=== PATIENT | female | born 1935 | race Caucasian/White ===

== ENCOUNTER 2016-06-10 08:18 | Day surgery (SDC) | payer MEDICARE ==
[~2016-06-10 08:18] MED LIST: PHENYLEPHRINE 2.5% OPHTH 2 ML DROPS ONE
[2016-06-10] MEDS ORDERED: PHENYLEPHRINE 2.5% OPHTH 2 ML DROPS OPTH ONE (08:50)
[2016-06-10] MEDS ORDERED: PROPARACAINE 0.5% OPHTH DROPS 15 ML OPTH ONE (08:50)
[2016-06-10] MEDS ORDERED: CYCLOPENTOLATE 1% OPHTH DROPS 2 ML OPTH ONE (08:50)
[2016-06-10] MEDS ORDERED: KETOROLAC 0.45% OPHTH DROPS OPTH ONE (08:50)
[2016-06-10] MEDS ORDERED: LACTATED RINGERS 500 ML IV ONE (09:18)
[2016-06-10] MEDS ORDERED: MIDAZOLAM 2 MG/2 ML VIAL IVP ONE (10:10)
[2016-06-10] MEDS ORDERED: fentaNYL 100 MCG/2 ML VIAL IVP ONE (10:10)
[2016-06-10] MEDS ORDERED: BRIMONIDINE 0.2% OPHTH DROPS 5 ML OPTH ONE (10:20)
[2016-06-10] MEDS ORDERED: CHONDR SULF/HYALURONATE SYRINGE IO ONE (10:20)
[2016-06-10] MEDS ORDERED: EPINEPHrine 1 MG/ML AMP IVP ONE (10:20)
[2016-06-10] MEDS ORDERED: levoFLOXacin 0.5% OPHTH DROPS 5 ML OPTH ONE (10:20)
[2016-06-10] MEDS ORDERED: BSS/LIDOCAINE/EPINEPHRINE 1 ML SYRINGE IO ONE ×2 (10:20)
[2016-06-10] MEDS ORDERED: TRIAMCIN/MOXIFLOX/VANCO 1 ML VIAL IO ONE ×2 (10:21)
== END 2016-06-10 08:19 | disposition home or self-care (01) ==
PROC: 08RK3JZ Replacement of Left Lens with Synthetic Substitute, Percutaneous Approach (ICD-10-PCS; principal; 2016-06-10 09:30)
DX: H25.812 Combined forms of age-related cataract, left eye (principal); E11.22 Type 2 diabetes mellitus with diabetic chronic kidney disease; I12.9 Hypertensive chronic kidney disease with stage 1 through stage 4 chronic kidney disease, or unspecified chronic kidney disease; N18.9 Chronic kidney disease, unspecified; E66.9 Obesity, unspecified; Z95.1 Presence of aortocoronary bypass graft; Z68.43 Body mass index [BMI] 50.0-59.9, adult; Z87.891 Personal history of nicotine dependence
CPT/HCPCS: 66984; A9270; V2632

== ENCOUNTER 2016-08-25 00:50 | Emergency (ER) | payer MEDICARE ==
[2016-08-25] MEDS ORDERED: ALBUTEROL NEB 2.5 MG/3 ML INH STA (01:07)
[2016-08-25] MEDS ORDERED: ONDANSETRON 4 MG/2 ML VIAL IVP STA (01:08)
[2016-08-25] MEDS ORDERED: ALBUTEROL NEB 2.5 MG/3 ML INH ONE (01:09)
--- NOTE | 2016-08-25 01:13 | ED Physician Documentation ---
PD HPI DYSPNEA - Stated complaint Stated Complaint: SHORTNESS OF BREATH - Chief complaint Chief Complaint: Resp - History obtained from History obtained from: Patient, Family - History of Present Illness Timing - onset: How many weeks ago (2) Timing - onset during: Rest Timing - duration: Weeks (2) Timing - details: Gradual onset Pain level max: 0 Pain level now: 0 Inciting event(s): Other (states feels like her normal allergies) Improved by: Inhaler/neb (ran out of her albuterol at home) Worsened by: Exertion, Coughing Associated symptoms: Cough (mild, dry), Wheezing, Chest pain / discomfort ( tightness). No: Fever, Hemoptysis, Palpitations, Diaphoresis, Bilateral edema Similar symptoms before: Diagnosis (asthma, allergies) Recently seen: Not recently seen Review of Systems Ten Systems: 10 systems reviewed and negative Constitutional: denies: Fever, Chills Ears: denies: Drainage/discharge Nose: reports: Rhinorrhea / runny nose, Congestion GI: denies: Vomiting, Diarrhea Skin: denies: Rash Musculoskeletal: denies: Neck pain, Back pain Neurologic: denies: Focal weakness, Numbness, Headache PD PAST MEDICAL HISTORY - Past Medical History Past Medical History: Yes Cardiovascular: Hypertension, Coronary artery disease, [place], Atrial fibrillation Respiratory: Asthma Neuro: None Endocrine/Autoimmune: None GI: None : Kidney stones HEENT: None Psych: Anxiety Musculoskeletal: Osteoarthritis Derm: Other - Past Surgical History Past Surgical History: Yes 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 Cardiovascular: CABG HEENT: Tonsil/Adenoidectomy - Present Medications Home Medications: Ambulatory Orders Medication Instructions Recorded Confirmed Lisinopril 2.5 mg PO DAILY 04/01/13 06/10/16 Metoprolol Succinate [Toprol Xl] 25 mg PO DAILY 02/08/14 06/10/16 Apixaban [Eliquis] 2.5 mg PO DAILY 06/09/16 06/10/16 - Allergies Allergies/Adverse Reactions: Allergies Allergy/AdvReac Type Severity Reaction Status Date / Time amoxicillin Allergy Unknown Verified 10/14/15 10:35 iodine Allergy Hives Verified 07/23/15 02:07 shellfish derived Allergy Hives Verified 07/23/15 02:07 lactose AdvReac Cramps Verified 07/23/15 02:07 - Social History Does the pt smoke?: No Smoking Status: Light tobacco smoker Does the pt drink ETOH?: No Does the pt have substance abuse?: No - Immunizations Immunizations are current?: Yes - POLST Patient has POLST: No PD ED PE NORMAL - Vitals Vital signs reviewed: Yes - General General: Alert and oriented X 3, No acute distress, Well developed/nourished - HEENT HEENT: Ears normal, Moist mucous membranes, Pharynx benign - Neck Neck: Supple, no meningeal sign - Cardiac Cardiac: RRR - Respiratory Respiratory: No respiratory distress, Other (mild wheeze B) - Abdomen Abdomen: Soft, Non tender, Non distended - Derm Derm: Warm and dry, No rash - Extremities Extremities: No edema, No calf tenderness / cord - Neuro Neuro: Alert and oriented X 3 - Psych Psych: Normal mood, Normal affect Results - Vitals Vitals: Vital Signs - 24 hr 08/25/16 08/25/16 08/25/16 00:56 01:25 01:50 Temperature 37.4 C Heart Rate 104 H 95 106 H Respiratory 22 20 16 Rate Blood Pressure 152/104 H 151/75 H O2 Saturation 97 97 08/25/16 02:15 Temperature Heart Rate 102 H Respiratory 16 Rate Blood Pressure 138/47 H O2 Saturation 95 Oxygen O2 Source [] Room air O2 Source Room air - EKG (time done) 0111 Rate: Rate (enter#) (113) Rhythm: Atrial fibrillation [place]: Normal QRS: Normal Ischemia: Non specific changes Computer interpretation: Agree with computer - Labs Labs: Laboratory Tests 08/25/16 08/25/16 08/25/16 01:05 01:05 01:05 WBC 13.9 H RBC 4.05 L Hgb 13.1 Hct 38.5 MCV 95.2 MCH 32.3 H MCHC 34.0 RDW 14.2 Plt Count 193 MPV 9.9 Neut # 10.0 H Lymph # 2.4 [place] # 1.1 H Eos # 0.4 Baso # 0.1 Absolute Nucleated RBC 0.00 Nucleated RBCs 0.0 Sodium 136 Potassium 3.9 Chloride 100 L Carbon Dioxide 22 Anion Gap 14.0 H BUN 20 Creatinine 1.0 Estimated GFR (MDRD) 53 L Glucose 182 H Calcium 9.1 Total Bilirubin 1.7 H AST 36 ALT 35 Alkaline Phosphatase 34 L Troponin I < 0.04 B-Natriuretic Peptide Total Protein 7.6 Albumin 4.2 Globulin 3.4 Albumin/Globulin Ratio 1.2 Lipase 20 L 08/25/16 01:05 WBC RBC Hgb Hct MCV MCH MCHC RDW Plt Count MPV Neut # Lymph # [place] # Eos # Baso # Absolute Nucleated RBC Nucleated RBCs Sodium Potassium Chloride Carbon Dioxide Anion Gap BUN Creatinine Estimated GFR (MDRD) Glucose Calcium Total Bilirubin AST ALT Alkaline Phosphatase Troponin I B-Natriuretic Peptide 284 H Total Protein Albumin Globulin Albumin/Globulin Ratio Lipase - Rads (name of study) cxr Radiology: Prelim report reviewed, EMP read contemporaneously, See rad report ( Cardiomegaly. Borderline vascular congestion. No consolidation. ) PD MEDICAL DECISION MAKING - ED course Complexity details: reviewed results, re-evaluated patient, considered differential, d/w patient ED course: Patient is a 81-year-old female who presents to the emergency department with what appears to be an asthma exacerbation. Feels better after nebulizer treatment with albuterol. She was given an albuterol inhaler for home. No evidence of cardiac etiology. Mildly elevated BNP, but no significant pulmonary edema on chest x-ray. She feels much better and back to her normal baseline. No evidence of acute coronary syndrome. Patient and family counseled regarding signs and symptoms for which I believe and urgent re- evaluation would be necessary. Patient with good understanding of and agreement to plan and is comfortable going home at this time This document was made in part using voice recognition software. While efforts are made to proofread this document, sound alike and grammatical errors may occur. Departure - Departure Disposition: 01 Home, Self Care Clinical Impression: Reactive airway disease Qualifiers: Asthma severity: unspecified severity Asthma complication type: with acute exacerbation Qualified Code(s): J45.901 - Unspecified asthma with (acute) exacerbation Condition: Good Instructions: ED Reactive Airway Disease Follow-Up: Perlita Rodgers MD [Primary Care Provider] - Within 1 week Comments: Use the inhaler every 4 hours as needed. Return if you worsen.
[2016-08-25 01:15] LABS: BASOPHILS # (AUTO) 0.1 10^3/uL (0.0-0.1); BASOPHILS % (AUTO) 0.5 %; EOSINOPHILS # (AUTO) 0.4 10^3/uL (0.0-0.7); EOSINOPHILS % (AUTO) 2.6 %; HCT - HEMATOCRIT 38.5 % (37.0-47.0); HGB - HEMOGLOBIN 13.1 g/dL (12.0-16.0); LYMPHOCYTES # (AUTO) 2.4 10^3/uL (1.5-3.5); LYMPHOCYTES % (AUTO) 16.9 %; MEAN CORPUSCULAR HEMOGLOBIN 32.3 pg (27.0-31.0); MEAN CORPUSCULAR VOLUME 95.2 fL (81.0-99.0); MEAN PLATELET VOLUME 9.9 fL (7.9-10.8); MONOCYTES # (AUTO) 1.1 10^3/uL (0.0-1.0); MONOCYTES % (AUTO) 7.7 %; NEUTROPHILS % (AUTO) 72.3 %; RED BLOOD COUNT 4.05 10^6/uL (4.20-5.40); RED CELL DISTRIBUTION WIDTH 14.2 % (12.0-15.0); UNCORRECTED WHITE BLOOD COUNT 13.9 x10^3/uL; WHITE BLOOD COUNT 13.9 x10^3/uL (4.8-10.8)
[2016-08-25] MEDS ORDERED: ONDANSETRON 4 MG/2 ML VIAL ONE (01:16)
[2016-08-25 01:21] LABS: ALBUMIN/GLOBULIN RATIO 1.2 (1.0-2.2); BILIRUBIN,TOTAL 1.7 mg/dL (0.2-1.0); CALCIUM 9.1 mg/dL (8.5-10.3); POTASSIUM 3.9 mmol/L (3.5-5.0); TOTAL PROTEIN 7.6 g/dL (6.7-8.2)
--- NOTE | 2016-08-25 01:48 | XRAY Preliminary Report ---
Exam: XR Chest 1 View IMPRESSION: 1. Cardiomegaly. Borderline vascular congestion. 2. No consolidation. [facility] SITE ID: [id number]
--- NOTE | 2016-08-25 01:51 | XRAY Report ---
EXAM: CHEST RADIOGRAPHY EXAM DATE: 08/25/2016 01:35 AM. CLINICAL HISTORY: Dyspnea. Shortness of breath. COMPARISON: 10/14/2015. 07/23/2015. TECHNIQUE: 1 view. FINDINGS: Lungs/Pleura: Vasculature is prominent. No focal consolidation. No pneumothorax. Mediastinum: Heart is enlarged. Aorta is mildly tortuous. Aortic atherosclerosis. Other: Status post median sternotomy. IMPRESSION: 1. Cardiomegaly. Borderline vascular congestion. 2. No consolidation. [facility] Referring Provider Line: [phone] SITE ID: [id number]
[2016-08-25] MEDS ORDERED: ALBUTEROL 18 GM INHALER INH ONE (02:57)
[2016-08-25] MEDS ORDERED: ALBUTEROL 8 GM INHALER INH STA (02:57)
[2016-08-25 03:33] VITALS: BP 127/52
== END 2016-08-25 03:33 | disposition home or self-care (01) ==
LOC: ED 00:50
DX: J45.901 Unspecified asthma with (acute) exacerbation (principal); I10 Essential (primary) hypertension; I48.91 Unspecified atrial fibrillation; Z79.01 Long term (current) use of anticoagulants
CPT/HCPCS: 36415; 71010; 80053; 83690; 83880; 84484; 85025; 93005; 93010; 94640; 96374; 99283; 99285; J7613

== ENCOUNTER 2017-02-09 14:59 | Emergency (ER) | payer MEDICARE ==
--- NOTE | 2017-02-09 18:18 | ED Physician Documentation ---
History of Present Illness - Stated complaint Stated Complaint: HAND INJURY - Chief complaint Chief Complaint: Laceration - Additonal information Additional information: pt with skin tear from dog claws several days ago daughter helped provide good local wound care but now developing some pain and erythema need tdap all to amox was renal dysfxn that might have bneen 2/ amx or other meds taken at the same time Review of Systems Skin: reports: Laceration (s) PD PAST MEDICAL HISTORY - Past Medical History Cardiovascular: Hypertension, Coronary artery disease, [place], Atrial fibrillation Respiratory: Asthma Neuro: None Endocrine/Autoimmune: None GI: None : Kidney stones HEENT: None Psych: Anxiety Musculoskeletal: Osteoarthritis Derm: Other - Past Surgical History Past Surgical History: Yes General: Other /REST ROOM MATRON: Hysterectomy Cardiovascular: CABG HEENT: Tonsil/Adenoidectomy - Present Medications Home Medications: Ambulatory Orders Medication Instructions Recorded Confirmed Lisinopril 2.5 mg PO DAILY 04/01/13 02/09/17 Metoprolol Succinate [Toprol Xl] 25 mg PO DAILY 02/08/14 02/09/17 Apixaban [Eliquis] 2.5 mg PO DAILY 06/09/16 02/09/17 cephALEXin [Keflex] 250 mg PO Q6H #28 capsule 02/09/17 - Allergies Allergies/Adverse Reactions: Allergies Allergy/AdvReac Type Severity Reaction Status Date / Time amoxicillin Allergy Unknown Verified 02/09/17 15:15 iodine Allergy Hives Verified 02/09/17 15:15 shellfish derived Allergy Hives Verified 02/09/17 15:15 lactose AdvReac Cramps Verified 02/09/17 15:15 - Social History Does the pt smoke?: No Smoking Status: Never smoker Does the pt drink ETOH?: No Does the pt have substance abuse?: No - Immunizations Immunizations are current?: Yes - POLST Patient has POLST: No PD ED PE NORMAL - Vitals Vital signs reviewed: Yes - Cardiac Cardiac: RRR - Respiratory Respiratory: No respiratory distress, Clear bilaterally - Derm Derm: Other (skin tear ulnar aspect voler L hand, no bleeding, skin approximated , some tenderness and erythema adjacent, no dc, streaking o flutuance, MSV intact, no tendon sheath TTP or pain with ROM) Results - Vitals Vitals: Vital Signs - 24 hr 02/09/17 15:03 Temperature 36 C L Heart Rate 100 Respiratory 20 Rate Blood Pressure 142/84 H O2 Saturation 99 Oxygen O2 Source [With Activity] Room air O2 Source Room air Departure - Departure Disposition: 01 Home, Self Care Clinical Impression: Infected skin tear Condition: Good Prescriptions: cephALEXin [Keflex] 250 mg PO Q6H #28 capsule Comments: Keep wound clean. Apply antibiotic ointment and a clean bandage daily Return if worse as discussed
[2017-02-09 18:25] VITALS: BP 147/76
[2017-02-09] MEDS ORDERED: BACITRACIN OINT TOP ONE (18:33)
[2017-02-09] MEDS: cephALEXin 250 MG CAPSULE PO STA (18:34)
[2017-02-09] MEDS: TETANUS/DIPHTHERIA/PERTUSSIS 0.5 ML SYRINGE IM ONE (18:34)
[2017-02-09] MEDS ORDERED: cephALEXin 250 MG CAPSULE PO ONE (18:36)
[2017-02-09] MEDS ORDERED: TETANUS/DIPHTHERIA/PERTUSSIS 0.5 ML SYRINGE IM ONE (18:37)
== END 2017-02-09 18:38 | disposition home or self-care (01) ==
LOC: ED 14:59
DX: S61.412A Laceration without foreign body of left hand, initial encounter (principal); L08.9 Local infection of the skin and subcutaneous tissue, unspecified; W54.8XXA Other contact with dog, initial encounter; I10 Essential (primary) hypertension; I25.10 Atherosclerotic heart disease of native coronary artery without angina pectoris; I25.2 Old myocardial infarction; I48.91 Unspecified atrial fibrillation; Z23 Encounter for immunization; Z79.01 Long term (current) use of anticoagulants; Z95.1 Presence of aortocoronary bypass graft
CPT/HCPCS: 90471; 99283

== ENCOUNTER 2019-10-05 21:03 | Outpatient (CLI) | payer MEDICARE | END 2019-10-05 21:04 | disposition critical access hospital (66) | LOC: EMS 21:03 | PROVIDERS: ATTEND Surgery | DX: M25.562 Pain in left knee (principal) | CPT/HCPCS: A0425; A0429 ==

== ENCOUNTER 2019-10-05 21:05 | Emergency (ER) | payer MEDICAID, MEDICARE ==
--- NOTE | 2019-10-05 21:10 | ED Physician Documentation ---
History of Present Illness - Stated complaint Stated Complaint: LEFT KNEE INJURY - History obtained from History obtained from: Patient (84 Y/O F who sat down to go to the restroom when she tried to stand up she had pain in her left patella. Denies any falls or trauma or any other complaints.Patient ambulates with walker at baseline.) Review of Systems Constitutional: reports: Reviewed and negative Eyes: reports: Reviewed and negative Ears: reports: Reviewed and negative Nose: reports: Reviewed and negative Throat: reports: Reviewed and negative Cardiac: reports: Reviewed and negative Respiratory: reports: Reviewed and negative GI: reports: Reviewed and negative : reports: Reviewed and negative Skin: reports: Reviewed and negative Musculoskeletal: reports: Joint pain, Other (Left knee pain) Neurologic: reports: Reviewed and negative Psychiatric: reports: Reviewed and negative Endocrine: reports: Reviewed and negative Immunocompromised: reports: Reviewed and negative PD PAST MEDICAL HISTORY - Past Medical History Cardiovascular: Hypertension, Coronary artery disease, [place], Atrial fibrillation Respiratory: Asthma Endocrine/Autoimmune: None GI: None : Kidney stones HEENT: None Psych: Anxiety Musculoskeletal: Osteoarthritis Derm: Other - Past Surgical History Past Surgical History: Yes 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 Cardiovascular: CABG HEENT: Tonsil/Adenoidectomy - Present Medications Home Medications: Ambulatory Orders Medication Instructions Recorded Confirmed lisinopriL [Lisinopril] 2.5 mg PO DAILY 04/01/13 02/09/17 Metoprolol Succinate [Toprol Xl] 25 mg PO DAILY 02/08/14 02/09/17 Apixaban [Eliquis] 2.5 mg PO DAILY 06/09/16 02/09/17 cephALEXin [Keflex] 250 mg PO Q6H #28 capsule 02/09/17 - Allergies Allergies/Adverse Reactions: Allergies Allergy/AdvReac Type Severity Reaction Status Date / Time amoxicillin Allergy Unknown Verified 10/05/19 21:12 iodine Allergy Hives Verified 10/05/19 21:12 shellfish derived Allergy Hives Verified 10/05/19 21:12 lactose AdvReac Cramps Verified 10/05/19 21:12 - Social History Does the pt smoke?: No Smoking Status: Never smoker Does the pt drink ETOH?: No Does the pt have substance abuse?: No - Immunizations Immunizations are current?: Yes - POLST Patient has POLST: No PD ED PE NORMAL - Vitals Vital signs reviewed: Yes - General General: Alert and oriented X 3, No acute distress, Well developed/nourished - HEENT HEENT: PERRL - Neck Neck: Supple, no meningeal sign - Cardiac Cardiac: RRR, No murmur - Respiratory Respiratory: Clear bilaterally - Abdomen Abdomen: Normal bowel sounds, Soft, Non tender, Non distended - Derm Derm: Warm and dry - Extremities Extremities: Other (left Patella Is dislocated laterally.Compartments soft, neurovascularly intact palpable DP and PT pulses.) - Neuro Neuro: Alert and oriented X 3 - Psych Psych: Normal mood, Normal affect Results - Vitals Vitals: Vital Signs - 24 hr 10/05/19 10/05/19 10/05/19 21:09 22:11 22:22 Temperature 37.4 C Heart Rate 101 H 777 H Respiratory 18 17 17 Rate Blood Pressure 135/58 H 145/59 H O2 Saturation 98 97 Oxygen O2 Source [With Activity] Room air O2 Source Room air Procedures - General procedure General procedure: Left knee. Left knee was extended, patella was reduced from lateral to medial to midline position x-ray shows no fracture or dislocation post exam show her compartments to be soft with palpable DP and PT pulses patient symptoms improved. Patient placed in knee immobilizer. PD MEDICAL DECISION MAKING - ED course Complexity details: reviewed results, re-evaluated patient, considered differential (Left patella dislocation), d/w patient Departure - Departure Disposition: 01 Home, Self Care Clinical Impression: Left knee pain Qualifiers: Chronicity: acute Qualified Code(s): M25.562 - Pain in left knee Patellar dislocation Qualifiers: Encounter type: initial encounter Laterality: left Qualified Code(s): S83.005A - Unspecified dislocation of left patella, initial encounter Condition: Stable Instructions: ED Dislocation Patella Follow-Up: Perlita Rodgers MD [Primary Care Provider] - 10/08/19 Comments: ice several times daily. use walker as needed. keep knee in brace. follow up with your pcp on Tuesday.
--- NOTE | 2019-10-05 22:00 | XRAY Report ---
PROCEDURE: Knee 3 View LT INDICATIONS: left knee pain TECHNIQUE: 3 views of the left knee(s) were acquired. COMPARISON: None. FINDINGS: Bones: No fractures or dislocations. No suspicious bony lesions. There is moderate femorotibial co mpartment narrowing. Soft tissues: No joint effusion. No suspicious soft tissue calcifications. IMPRESSION: Degenerative change. No acute radiographic findings. If pain persists, consider repeat i maging in 5-7 days to exclude occult fracture. Reviewed by: Katie Bernal MD on 10/05/2019 9:58 PM PDT Approved by: Katie Bernal MD on 10/05/2019 9:58 PM PDT Station ID: [id number]
[2019-10-05 22:12] VITALS: BP 145/59
== END 2019-10-05 22:35 | disposition home or self-care (01) ==
LOC: EDUNIT# → ED 21:05
DX: S83.005A Unspecified dislocation of left patella, initial encounter (principal); X58.XXXA Exposure to other specified factors, initial encounter; Y93.E8 Activity, other personal hygiene; Y92.002 Bathroom of unspecified non-institutional (private) residence as the place of occurrence of the external cause
CPT/HCPCS: 27560

== ENCOUNTER 2019-12-24 18:55 | Inpatient (IN) | payer MEDICARE, MEDICAID ==
[2019-12-24 20:07] LABS: BASOPHILS # (AUTO) 0.1 10^3/uL (0.0-0.1); BASOPHILS % (AUTO) 0.4 %; EOSINOPHILS # (AUTO) 0.2 10^3/uL (0.0-0.7); EOSINOPHILS % (AUTO) 1.4 %; HGB - HEMOGLOBIN 12.3 g/dL (12.0-16.0); LYMPHOCYTES # (AUTO) 0.9 10^3/uL (1.5-3.5); MEAN CORPUSCULAR HEMOGLOBIN 33.3 pg (27.0-31.0); MEAN CORPUSCULAR HGB CONC 32.2 g/dL (32.0-36.0); MEAN CORPUSCULAR VOLUME 103.5 fL (81.0-99.0); MEAN PLATELET VOLUME 11.3 fL (7.9-10.8); MONOCYTES # (AUTO) 0.6 10^3/uL (0.0-1.0); MONOCYTES % (AUTO) 4.1 %; NEUTROPHILS # (AUTO) 12.5 10^3/uL (1.5-6.6); NEUTROPHILS % (AUTO) 87.3 %; PLT - PLATELET COUNT 231 10^3/uL (130-450); RED BLOOD COUNT 3.69 10^6/uL (4.20-5.40); RED CELL DISTRIBUTION WIDTH 14.8 % (12.0-15.0); WHITE BLOOD COUNT 14.3 x10^3/uL (4.8-10.8)
[2019-12-24 20:19] LABS: ALBUMIN 4.3 g/dL (3.2-5.5); ALBUMIN/GLOBULIN RATIO 1.3 (1.0-2.2); BILIRUBIN,TOTAL 2.3 mg/dL (0.2-1.0); CALCIUM 9.4 mg/dL (8.5-10.3); CREATININE 1.4 mg/dL (0.4-1.0); TOTAL PROTEIN 7.5 g/dL (6.7-8.2)
--- NOTE | 2019-12-24 20:31 | XRAY Report ---
PROCEDURE: Chest 1 View X-Ray INDICATIONS: Chest Pain TECHNIQUE: One view of the chest was acquired. COMPARISON: 08/25/2016 chest radiograph FINDINGS: Surgical changes and devices: Median sternotomy changes for CABG. Lungs and pleura: No pleural effusions or pneumothorax. Lungs are clear. Mediastinum: Mediastinal contours appear normal. Heart size is normal. Bones and chest wall: No suspicious bony lesions. Overlying soft tissues appear unremarkable. IMPRESSION: No acute cardiac or marrow process demonstrated radiographically. Reviewed by: Jacinto Morrison MD on 12/24/2019 8:30 PM PDT Approved by: Jacinto Morrison MD on 12/24/2019 8:30 PM PDT Station ID: [id number]
[2019-12-24] MEDS ORDERED: ONDANSETRON 4 MG/2 ML VIAL IVP STA ×2 (20:32→22:53)
[2019-12-24] MEDS ORDERED: MORPHINE 2 MG/ML CARPUJECT IVP STA ×2 (20:32→21:10)
--- NOTE | 2019-12-24 20:32 | ED Physician Documentation ---
PD HPI ABD PAIN - Stated complaint Stated Complaint: STOMACH PAIN - Chief complaint Chief Complaint: Abd Pain - History obtained from History obtained from: Patient - Additional information Additional information: 84-year-old woman with history of atrial fibrillation on Eliquis who has a lap band in place. She developed severe abdominal pain around 2 this afternoon, its on the right side. It is associated with belching and nausea. It is cramping and burning in character. Last bowel movement yesterday and normal. 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 : Kidney stones HEENT: None Psych: Anxiety Musculoskeletal: Osteoarthritis Derm: Other - Past Surgical History Past Surgical History: Yes General: 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 /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: Hysterectomy Cardiovascular: CABG HEENT: Tonsil/Adenoidectomy - Present Medications Home Medications: Ambulatory Orders Medication Instructions Recorded Confirmed lisinopriL [Lisinopril] 2.5 mg PO DAILY 04/01/13 02/09/17 Metoprolol Succinate [Toprol Xl] 25 mg PO DAILY 02/08/14 02/09/17 Apixaban [Eliquis] 2.5 mg PO DAILY 06/09/16 02/09/17 cephALEXin [Keflex] 250 mg PO Q6H #28 capsule 02/09/17 - Allergies Allergies/Adverse Reactions: Allergies Allergy/AdvReac Type Severity Reaction Status Date / Time amoxicillin Allergy Unknown Verified 12/24/19 19:21 iodine Allergy Hives Verified 12/24/19 19:21 shellfish derived Allergy Hives Verified 12/24/19 19:21 lactose AdvReac Cramps Verified 12/24/19 19:21 - Social History Does the pt smoke?: No Smoking Status: Never smoker Does the pt drink ETOH?: No Does the pt have substance abuse?: No - Immunizations Immunizations are current?: Yes - POLST Patient has POLST: No PD ED PE NORMAL - Vitals Vital signs reviewed: Yes - General General: Alert and oriented X 3, Other (She appears uncomfortable and is belching) - HEENT HEENT: PERRL, EOMI - Neck Neck: Supple, no meningeal sign, No bony TTP - Cardiac Cardiac: Other (Irregularly irregular) - Respiratory Respiratory: No respiratory distress, Clear bilaterally - Abdomen Abdomen: Other (Tender in the right upper quadrant with hyperactive bowel tones) - Back Back: No CVA TTP, No spinal TTP - Derm Derm: Normal color, Warm and dry, No rash - Extremities Extremities: No edema, No calf tenderness / cord - Neuro Neuro: Alert and oriented X 3, Normal speech Results - Vitals Vitals: Vital Signs - 24 hr 12/24/19 12/24/19 12/24/19 19:14 19:30 20:20 Temperature 36.9 C 36.9 C 36.9 C Heart Rate 72 72 78 Respiratory 18 18 16 Rate Blood Pressure 112/58 L 112/58 L 140/56 H O2 Saturation 97 97 100 12/24/19 22:00 Temperature 36.8 C Heart Rate 100 Respiratory 18 Rate Blood Pressure 156/72 H O2 Saturation 100 Oxygen O2 Source [] Room air O2 Source Room air - EKG (time done) 1946 Rate: Rate (enter#) (87) Rhythm: Atrial fibrillation [place]: Normal QRS: Normal Ischemia: Non specific changes Computer interpretation: Agree with computer - Labs Labs: Laboratory Tests 12/24/19 12/24/19 12/24/19 19:40 19:40 19:40 WBC 14.3 H RBC 3.69 L Hgb 12.3 Hct 38.2 MCV 103.5 H MCH 33.3 H MCHC 32.2 RDW 14.8 Plt Count 231 MPV 11.3 H Neut # (Auto) 12.5 H Lymph # (Auto) 0.9 L [place] # (Auto) 0.6 Eos # (Auto) 0.2 Baso # (Auto) 0.1 Absolute Nucleated RBC 0.00 Nucleated RBC % 0.0 Sodium 138 Potassium 3.8 Chloride 101 Carbon Dioxide 25 Anion Gap 12.0 BUN 25 H Creatinine 1.4 H Estimated GFR (MDRD) 36 L Glucose 174 H Calcium 9.4 Total Bilirubin 2.3 H AST 139 H ALT 64 H Alkaline Phosphatase 43 Troponin I High Sens 8.5 Total Protein 7.5 Albumin 4.3 Globulin 3.2 Albumin/Globulin Ratio 1.3 Lipase 34 - Rads (name of study) 1v chest Radiology: EMP read contemporaneously (NAD) PD MEDICAL DECISION MAKING - ED course ED course: 84-year-old woman with acute right upper quadrant pain and tenderness. Liver enzymes are elevated and her white count is 14. She does have a history of atrial fibrillation and is therapeutically anticoagulated on Eliquis. She required a couple of doses of IV morphine for pain control and was comfortable after that. Suspicion for biliary etiology is high And signout to overnight emergency physician pending ultrasonography. Departure - Departure Clinical Impression: Abdominal pain Qualifiers: Abdominal location: right upper quadrant Qualified Code(s): R10.11 - Right upper quadrant pain
[2019-12-25] MEDS ORDERED: metroNIDAZOLE 500 MG/100 ML 500 MG/100 ML BAG IV ONE (00:14)
[2019-12-25] MEDS ORDERED: levoFLOXacin 750 MG/150 ML 750 MG/150 ML BAG IV STA (00:15)
[2019-12-25 00:18] LABS: BILIRUBIN,URINE NEGATIVE (NEGATIVE); GLUCOSE, URINE (UA) NEGATIVE (NEGATIVE); KETONES,URINE (UA) NEGATIVE (NEGATIVE); LEUKOCYTE ESTERASE, URINE NEGATIVE (NEGATIVE); NITRITE,URINE NEGATIVE (NEGATIVE); OCCULT BLOOD,URINE NEGATIVE (NEGATIVE); PH,URINE 5.5 PH (5.0-7.5); PROTEIN,URINE NEGATIVE (NEGATIVE); UROBILINOGEN,URINE 0.2 (NORMAL) E.U./dL (NORMAL)
[2019-12-25 00:19] LABS: CLARITY,URINE CLEAR (CLEAR)
--- NOTE | 2019-12-25 00:27 | ED Physician Documentation ---
ED Addendum - Addendum Addendum: patient signed out to me at shift change by dr. goodwin. Ultrasound preliminary radiology interpretation shows an impression of findings consistent with cholecystitis in the appropriate clinical setting, and large fatty liver, nonspecific pancreatic ductal dilation. Pancreas not well seen overall due to bowel gas obscuration. The gallbladder does show echogenic shadowing foci consistent with gallstones gallbladder wall thickening at 5 mm with ac- cholecystic fluid. I did speak with a surgeon transitional care manager Dr. Garza who recommends admission to medicine and MRCP in the morning and he will evaluate the patient as a consultant education. spoke with the hospitalist dr. barahona who was graciously agreed to admit this patient. patient on eliquis for a fib. 12/25/19 00:25 12/25/19 03:43 Departure - Departure Disposition: 66 [facility] DC/Xfer Clinical Impression: Cholecystitis Abdominal pain Qualifiers: Abdominal location: right upper quadrant Qualified Code(s): R10.11 - Right upper quadrant pain Condition: Stable Discharge Date/Time: 12/25/19 01:40
[2019-12-25] MEDS ORDERED: MORPHINE 2 MG/ML CARPUJECT IVP PRN (00:53)
--- NOTE | 2019-12-25 01:04 | HISTORY & PHYSICAL EXAMINATION ---
Chief Complaint - Chief Complaint Chief Complaint: Right upper quadrant pain History of Present Illness - Admitted From Admitted From:: [facility] ED - History Obtained From Records Reviewed: Yes History obtained from: Patient - History of Present Illness HPI Comment/Other: Patient is an 84-year-old female who presented to the ED with complaint of right upper quadrant abdominal pain. This started yesterday around noon after she had some tuna salad. The pain has been progressively worse since then so she came to the emergency room. Currently she rates the pain 7 out of 10. She describes occasional cramping as well. She has been nauseous but no vomiting she has been experiencing dry heaves. She denies fever or chills. In the ED work-up included a Ultrasound of the abdomen which showed gallbladder wall thickening at 5 mm with pericholecystic fluid.. There was also nonspecific pancreatic ductal dilatation. The patient also had a WBC of 14.3. As a result she was presented for admission for further evaluation and treatment. The patient has a history of atrial fibrillation for which she is on Eliquis. She last took Eliquis on December 24, 2019 in the morning. She also has history of coronary artery disease status post a 4 vessel bypass in 2009. At bedside she denied chest pain, dyspnea, fever or chills. History - Past Medical History Cardiovascular: reports: Hypertension, Coronary artery disease, [place], Atrial fibrillation Respiratory: reports: Asthma Neuro: reports: None Endocrine/Autoimmune: reports: None GI: reports: None LIFE SKILLS COORDINATOR: reports: None : reports: Kidney stones HEENT: reports: None Psych: reports: Anxiety Musculoskeletal: reports: Osteoarthritis Derm: reports: Other MRSA Hx?: No - Past Surgical History General: reports: Other /LIFE SKILLS COORDINATOR: reports: Hysterectomy Cardiovascular: reports: CABG HEENT: reports: Tonsil/Adenoidectomy - Family & Social History Family History Comment/Other: Her parents of old age. Her children are healthy. Living arrangement: At home Social History Notes: She lives across the street in the [facility]. 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 Her children have been living with her for couple of months. She has 3 children who all live in [place]. She has 4 grandchildren. She does not smoke tobacco products or use any recreational substances. - POLST Patient has POLST: No Meds/Allgy - Home Medications Home Medications: Ambulatory Orders Medication Instructions Recorded Confirmed lisinopriL [Lisinopril] 2.5 mg PO DAILY 04/01/13 02/09/17 Metoprolol Succinate [Toprol Xl] 25 mg PO DAILY 02/08/14 02/09/17 Apixaban [Eliquis] 2.5 mg PO DAILY 06/09/16 02/09/17 cephALEXin [Keflex] 250 mg PO Q6H #28 capsule 02/09/17 - Allergies Allergies/Adverse Reactions: Allergies Allergy/AdvReac Type Severity Reaction Status Date / Time amoxicillin Allergy Unknown Verified 12/24/19 19:21 iodine Allergy Hives Verified 12/24/19 19:21 shellfish derived Allergy Hives Verified 12/24/19 19:21 lactose AdvReac Cramps Verified 12/24/19 19:21 Review of Systems - Constitutional Constitutional: denies: Fatigue, Fever, Chills - Eyes Eyes: denies: Pain - Ears, Nose & Throat Ears, Nose & Throat: denies: Ear pain - Cardiovascular Cariovascular: reports: Irregular heart rate, Edema (chronic right lower ext edema). denies: Chest pain, Lightheadedness, Syncope, Exertional dyspnea - Respiratory Respiratory: denies: Cough, Wheezing, SOB at rest, SOB with exertion - Gastrointestinal Gastrointestinal: reports: Abdominal pain (right upper quadrant), Nausea. denies: Abdominal distention, Constipation, Diarrhea, Vomiting - Genitourinary Genitourinary: denies: Dysuria, Frequency, Urgency, Hematuria - Musculoskeletal Musculoskeletal: denies: Muscle pain, Back pain, Muscle aches - Integumentary Integumentary: denies: Rash, Pruritis, Lesions - Neurological Neurological: denies: General weakness, Focal weakness, Headache, Dizziness - Psychiatric Psychiatric: denies: Depression, Anxiety - Endocrine Endocrine: denies: Polyuria, Polydypsia - Hematologic/Lymphatic Hematologic/Lymphatic: denies: Anemia, Bruising, Petechiae Prior Level of Functionality: Patient is independent of activities of daily living. She gets around using a walker. Exam - Vital Signs Vital Signs: Vital Signs x48h Temp Pulse Resp BP Pulse Ox 12/24/19 23:50 36.7 C 80 18 122/49 L 98 12/24/19 22:00 36.8 C 100 18 156/72 H 100 12/24/19 20:20 36.9 C 78 16 140/56 H 100 12/24/19 19:30 36.9 C 72 18 112/58 L 97 12/24/19 19:14 36.9 C 72 18 112/58 L 97 - Physical Exam General Appearance: positive: Alert, Moderate distress, Severe distress Eyes Bilateral: positive: PERRL, EOMI ENT: positive: Dry mucous membranes Neck: positive: No JVD, Trachea midline Respiratory: positive: Chest non-tender, No respiratory distress, Breath sounds nml. negative: Wheezes, Rales, Rhonchi Cardiovascular: positive: Irregularly irregular Abdomen: positive: No distention, Tenderness. negative: Guarding, Rebound Back: positive: Nml inspection Skin: positive: Color nml, No rash, Warm, Dry Extremities: positive: Non-tender, Full ROM, Nml appearance, Pedal edema (right lower extremity edema) Neurologic/Psychiatric: positive: Oriented x3, Mood/affect nml Conclusion/Plan - Problem List (1) Cholecystitis Conclusion/Plan: Patient WBC was 14.3. Patient was given Levaquin and Flagyl in the ED. We will continue Cipro and Flagyl.N.p.o. IV hydration with normal saline at 100 mils an hour. Pain management with morphine and oxycodone as needed. Zofran for nausea. MRCP ordered. Dr. Garza with general surgery consulted and will see the patient in the morning. Patient last took Eliquis on the morning of December 24, 2019. We will order Lovenox 1 mg/kg twice daily. Patient would need to be off Eliquis for a total of 3 days before surgery (2) Atrial fibrillation Conclusion/Plan: On Metroprolol succinate 25 mg p.o. daily. We will hold Eliquis in anticipation of surgery. We will put patient on Lovenox 1mg/kg twice daily Qualifiers: Atrial fibrillation type: paroxysmal Qualified Code(s): I48.0 - Paroxysmal atrial fibrillation (3) Hypertension Conclusion/Plan: On metoprolol and lisinopril. (4) History of coronary artery disease Conclusion/Plan: Patient had a quadruple vessel CABG in 2009. On metoprolol. We will hold patient's Eliquis in anticipation of surgery. Lovenox 1mg/kg twice daily ordered - Lab Results Fish Bones: 12/24/19 19:40 12/24/19 19:40 Core Measures - Anticipated LOS I expect patient to be DC'd or transferred within 96 hours.: Yes - DVT/VTE - Prophylaxis VTE/DVT Device ordered at admit?: Yes VTE/DVT Prophylaxis med ordered at admit?: Yes
[2019-12-25] MEDS: SODIUM CHLORIDE 0.9% 1,000 ML IV SCH ×3 (01:49→22:29)
[2019-12-25] MEDS: SODIUM CHLORIDE FLUSH 0.9% 10 ML SYRINGE IVP PRN ×4 (01:51→06:48)
[2019-12-25] MEDS: SODIUM CHLORIDE FLUSH 0.9% 10 ML SYRINGE IVP SCH ×3 (02:21→17:48)
[2019-12-25] MEDS: ONDANSETRON 4 MG/2 ML VIAL IVP PRN ×3 (02:47→15:01)
[2019-12-25] MEDS: MORPHINE 2 MG/ML CARPUJECT IVP PRN ×2 (03:36→08:04)
[2019-12-25] MEDS: ZINC OXIDE 20% OINT 30 GM TUBE TOP PRN (05:11)
[2019-12-25 05:55] LABS: BASOPHILS # (AUTO) 0.1 10^3/uL (0.0-0.1); BASOPHILS % (AUTO) 0.4 %; EOSINOPHILS # (AUTO) 0.1 10^3/uL (0.0-0.7); EOSINOPHILS % (AUTO) 0.7 %; HGB - HEMOGLOBIN 10.7 g/dL (12.0-16.0); LYMPHOCYTES # (AUTO) 0.5 10^3/uL (1.5-3.5); LYMPHOCYTES % (AUTO) 3.1 %; MEAN CORPUSCULAR HEMOGLOBIN 33.1 pg (27.0-31.0); MEAN CORPUSCULAR HGB CONC 30.8 g/dL (32.0-36.0); MEAN CORPUSCULAR VOLUME 107.4 fL (81.0-99.0); MEAN PLATELET VOLUME 11.7 fL (7.9-10.8); MONOCYTES # (AUTO) 0.7 10^3/uL (0.0-1.0); MONOCYTES % (AUTO) 4.4 %; NEUTROPHILS # (AUTO) 15.4 10^3/uL (1.5-6.6); NEUTROPHILS % (AUTO) 90.7 %; PLT - PLATELET COUNT 201 10^3/uL (130-450); RED BLOOD COUNT 3.23 10^6/uL (4.20-5.40)
[2019-12-25 06:09] LABS: ALBUMIN 3.5 g/dL (3.2-5.5); ALBUMIN/GLOBULIN RATIO 1.2 (1.0-2.2); CREATININE 1.1 mg/dL (0.4-1.0); TOTAL PROTEIN 6.4 g/dL (6.7-8.2)
[2019-12-25] MEDS: PANTOPRAZOLE 40 MG VIAL IVP SCH (06:48)
--- NOTE | 2019-12-25 07:57 | Ultrasound Report ---
PROCEDURE: Abdomen Limited INDICATIONS: RUQ pain, elev liver enz TECHNIQUE: Real-time scanning was performed of the abdominal and retroperitoneal organs, with image documentatio n. COMPARISON: None. FINDINGS: Liver: Liver is normal in size and homogeneous in echotexture. Liver is diffusely echogenic. Gallbladder: Stones noted in the gallbladder lumen. Gallbladder wall is mildly thickened to 5.[address] mm[address] amount pericholecystic fluid. No sonographic Donald's sign reported, however patient is medicate d prior to acquisition. Biliary ducts: Minimal to mild intrahepatic biliary dilatation. Common bile duct is dilated to 10.3 m m. Normal is 6-7 mm or less in diameter, or 10 mm or less post-cholecystectomy. Pancreas: Not well visualized due to bowel gas and cannot be evaluated. Spleen: Not imaged. Kidneys: Kidneys are normal in size and echotexture. Right kidney measures 10.5 cm long. No right- sided hydronephrosis or nephrolithiasis. No solid masses. Aorta: Not imaged. Iliacs: Not imaged. IVC: Intrahepatic inferior vena cava is patent. Miscellaneous: No free abdominal fluid. IMPRESSION: 1. Cholelithiasis with gallbladder wall thickening and pericholecystic fluid suspicious for acute cho lecystitis. 2. Dilated biliary tree with common bile duct measuring 10.3 mm suspicious for biliary obstruction. R ecommend correlation with clinical and laboratory data. 3. Echogenic liver. Finding typically represents fatty infiltration, however finding is nonspecific a nd other etiologies including hepatic cirrhosis can reduce a similar appearance. Recommend correlatio n with clinical and laboratory data. Reviewed by: Estefania Bhatt MD, PhD on 12/25/2019 7:55 AM PDT Approved by: Estefania Bhatt MD, PhD on 12/25/2019 7:55 AM PDT Station ID: [id number]
[2019-12-25] MEDS: metroNIDAZOLE 500 MG/100 ML 500 MG/100 ML BAG IV SCH ×2 (08:20→17:43)
[2019-12-25] MEDS ORDERED: ENOXAPARIN 80 MG/0.8 ML SYRINGE SUBQ SCH (09:00)
[2019-12-25] MEDS: ACETAMINOPHEN 325 MG TABLET PO PRN ×2 (16:59→22:40)
--- NOTE | 2019-12-25 17:38 | PHARMACY PROGRESS NOTE ---
- Best Possible Medication History Admit Date and Time: 12/25/19 0053 Processed by: Pharmacy Medication History completed: Yes Patient Interview: Completed Secondary Source(s): Physician records (PATIENT INTERVIEWED BY GAME TECHNICIAN. PATIENT ABLE TO CONFIRM HOME MEDICATIONS ), Pharmacy records, Insurance records As the person ultimately responsible for medication therapy, providers are able to order a medication from an existing home medication list in [facility] via the "Reconcile Routine" prior to Confirmation of that medication by business support associate. Such practice is discouraged except when the physician, in their clinical judgment, deems that a medical need exists for a medication without regard to previous use.
[2019-12-25] MEDS: ENOXAPARIN 100 MG/ML SYRINGE SUBQ SCH (21:05)
[2019-12-25] MEDS ORDERED: SODIUM CHLORIDE 0.9% 500 ML IV ONE (21:38)
[2019-12-26] MEDS: ACETAMINOPHEN 325 MG TABLET PO PRN ×2 (01:11→07:03)
[2019-12-26] MEDS: metroNIDAZOLE 500 MG/100 ML 500 MG/100 ML BAG IV SCH ×3 (01:11→17:31)
[2019-12-26] MEDS: SODIUM CHLORIDE FLUSH 0.9% 10 ML SYRINGE IVP SCH ×4 (01:13→23:48)
[2019-12-26] MEDS: CIPROFLOXACIN 400 MG/200 ML 400 MG/200 ML BAG IV SCH ×2 (01:15→14:35)
[2019-12-26] MEDS: oxyCODONE 5 MG TABLET PO PRN ×3 (02:13→23:48)
--- NOTE | 2019-12-26 04:58 | MRI Report ---
PROCEDURE: MRCP W/O INDICATIONS: R/O obstruction. CONTRAST: None TECHNIQUE: Coronal ultra fast SE through the abdomen, axial 2-D spoiled GE in- and [id number], and breath-hold T2 FSE with fat saturation through the biliary system and pancreas. Oblique coronal and axial thin- slice ultra fast SE, radial thick-slab ultra fast SE centered on the extrahepatic bile ducts. COMPARISON: None. Correlation is made to ultrasound 12/24/2019 FINDINGS: Image quality: Excellent. Pancreas and biliary system: Mild central intrahepatic biliary dilatation. Common hepatic duct is pro minent at 10 mm. The visible cystic duct is patent without stone. Common bile duct is dilated up to 1 3 mm. Definite obstructing stone distally is not evident. The pancreatic duct is minimally dilated at 4 mm. Pancreas is normal in morphology, without adjacent soft tissue edema. Pancreatic duct is norm al in caliber, without developmental anomalies. Gallbladder is distended, demonstrates a thickened wall, and a number of small dependently layering g allstones. Other solid organs: Liver and spleen are normal in size. No adrenal nodules. Both kidneys are norm al in size, without hydronephrosis. Occasional cortical and parapelvic cysts are present in each kid diamond. Nodes and vessels: No retroperitoneal or mesenteric adenopathy by size criteria. Aorta and inferior vena cava are normal in size. Bowel and peritoneum: Laparoscopic gastric band at the GE junction.. Unenhanced bowel loops are norm al in caliber. There is a small amount of fluid around the liver. Lung bases: No basal pleural effusions. Heart size is mildly enlarged. There are median sternotomy changes present.. Bones and soft tissues: No ventral hernias. Bone marrow is of normal overall signal. IMPRESSION: 1. Findings of cholelithiasis and acute cholecystitis. 2. Mild intra and extrahepatic biliary dilatation without visible obstructing stone. This may be seco ndary to recently passed stone. 3. Mild pancreatic ductal dilatation. This is diffuse and may be evidence of recent edema at the ampu lla. 4. Laparoscopic band at the GE junction in satisfactory position. 5. Prior median sternotomy. Reviewed by: Millie Hodgson MD on 12/25/2019 4:54 PM PDT Approved by: Millie Hodgson MD on 12/25/2019 4:54 PM PDT Station ID: [id number]
[2019-12-26 05:33] LABS: BASOPHILS % (AUTO) 0.5 %; EOSINOPHILS # (AUTO) 0.2 10^3/uL (0.0-0.7); HGB - HEMOGLOBIN 9.7 g/dL (12.0-16.0); LYMPHOCYTES % (AUTO) 11.7 %; MEAN CORPUSCULAR HEMOGLOBIN 32.8 pg (27.0-31.0); MEAN CORPUSCULAR HGB CONC 31.5 g/dL (32.0-36.0); MEAN CORPUSCULAR VOLUME 104.1 fL (81.0-99.0); MEAN PLATELET VOLUME 11.2 fL (7.9-10.8); MONOCYTES # (AUTO) 0.6 10^3/uL (0.0-1.0); MONOCYTES % (AUTO) 7.6 %; NEUTROPHILS # (AUTO) 6.5 10^3/uL (1.5-6.6); NEUTROPHILS % (AUTO) 77.7 %; PLT - PLATELET COUNT 145 10^3/uL (130-450); RED BLOOD COUNT 2.96 10^6/uL (4.20-5.40); RED CELL DISTRIBUTION WIDTH 15.3 % (12.0-15.0); WHITE BLOOD COUNT 8.4 x10^3/uL (4.8-10.8)
[2019-12-26 05:46] LABS: ALBUMIN 3.3 g/dL (3.2-5.5); ALBUMIN/GLOBULIN RATIO 1.3 (1.0-2.2); BILIRUBIN,TOTAL 4.9 mg/dL (0.2-1.0); CALCIUM 8.4 mg/dL (8.5-10.3); CREATININE 0.9 mg/dL (0.4-1.0); TOTAL PROTEIN 5.9 g/dL (6.7-8.2)
[2019-12-26] MEDS: PANTOPRAZOLE 40 MG VIAL IVP SCH (06:58)
[2019-12-26] MEDS: SODIUM CHLORIDE 0.9% 1,000 ML IV SCH (06:59)
[2019-12-26] MEDS: SODIUM CHLORIDE FLUSH 0.9% 10 ML SYRINGE IVP PRN (06:59)
--- NOTE | 2019-12-26 07:35 | CONSULTATION NOTE ---
Referring Provider Name of Referring Provider:: Dr. Rodarte Consult Date: 12/26/19 Chief Complaint - Chief Complaint Chief Complaint: Right upper quadrant pain/cholecystitis History of Present Illness - Admitted From Admitted From:: HOME - History Obtained From Records Reviewed: EMR History obtained from: PATIENT Exam Limitations: NONE - History of Present Illness HPI Comment/Other: 84-year-old female with history of coronary artery disease on systemic anti coagulation who presents with abdominal pain. Significant past surgical history for lap band with significant weight loss. Reports worsening discomfort. Associated nausea and occasional emesis however latter is complicated by her historic lap band which is partially inflated. No prior history of upper and lower endoscopy. No family history of note. Called by hospital service for consultation. History - Past Medical History Cardiovascular: reports: Hypertension, Coronary artery disease, [place], Atrial fibrillation Respiratory: reports: Asthma Neuro: reports: None Endocrine/Autoimmune: reports: None GI: reports: None SENIOR MECHANICAL TECHNICIAN: reports: None : reports: Kidney stones HEENT: reports: None Psych: reports: Anxiety Musculoskeletal: reports: Osteoarthritis Derm: reports: Other MRSA Hx?: No - Past Surgical History General: reports: Other /SENIOR MECHANICAL TECHNICIAN: reports: Hysterectomy Cardiovascular: reports: CABG HEENT: reports: Tonsil/Adenoidectomy - Family & Social History Family History Comment/Other: Her parents of old age. Her children are healthy. Living arrangement: At home Social History Notes: She lives across the street in the [facility]. 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 Her children have been living with her for couple of months. She has 3 children who all live in [place]. She has 4 grandchildren. She does not smoke tobacco products or use any recreational substances. - POLST Patient has POLST: No Meds/Allgy - Home Medications Home Medications: Ambulatory Orders Medication Instructions Recorded Confirmed Albuterol Sulfate [Albuterol 2 puffs INH Q4H PRN 12/25/19 12/25/19 Sulfate Hfa] Apixaban [Eliquis] 5 mg PO BID 12/25/19 12/25/19 Metoprolol Succinate [Toprol Xl] 25 mg PO DAILY 12/25/19 12/25/19 - Allergies Allergies/Adverse Reactions: Allergies Allergy/AdvReac Type Severity Reaction Status Date / Time amoxicillin Allergy Unknown Verified 12/24/19 19:21 iodine Allergy Hives Verified 12/24/19 19:21 shellfish derived Allergy Hives Verified 12/24/19 19:21 lactose AdvReac Cramps Verified 12/24/19 19:21 Review of Systems - Constitutional Constitutional: reports: Fatigue - Gastrointestinal Gastrointestinal: reports: Abdominal pain, Nausea, Vomiting Exam - Vital Signs Reviewed Vital Signs: Yes Vital Signs: Vital Signs x48h Temp Pulse Resp BP Pulse Ox 12/26/19 03:06 36.6 C 85 18 142/68 H 96 12/26/19 00:19 36.6 C 73 18 107/55 L 97 - Physical Exam General Appearance: positive: No acute distress, Alert Eyes Bilateral: positive: Normal inspection, PERRL, EOMI ENT: positive: ENT inspection nml Neck: positive: Nml inspection Respiratory: positive: Chest non-tender, No respiratory distress, Breath sounds nml. negative: Wheezes, Rales, Rhonchi Cardiovascular: positive: No murmur, No gallop Abdomen: positive: No distention, Tenderness. negative: Guarding, Rebound Skin: positive: Color nml Extremities: positive: Non-tender, Full ROM, Nml appearance Neurologic/Psychiatric: positive: Oriented x3, CN's nml (2-12), Motor nml, Sensation nml, Mood/affect nml Conclusion and Plan - Lab Results Laboratory Results 12/26/19 05:17: Sodium 139, Potassium 3.6, Chloride 112 H, Carbon Dioxide 20 L, Anion Gap 7.0, BUN 22 H, Creatinine 0.9, Estimated GFR (MDRD) 60 L, Glucose 88, Calcium 8.4 L, Total Bilirubin 4.9 H, AST 101 H, ALT 102 H, Alkaline Phosphatase 34 L, Total Protein 5.9 L, Albumin 3.3, Globulin 2.6, Albumin/Globulin Ratio 1.3 12/26/19 05:17: WBC 8.4, RBC 2.96 L, Hgb 9.7 L, Hct 30.8 L, MCV 104.1 H, MCH 32.8 H, MCHC 31.5 L, RDW 15.3 H, Plt Count 145, MPV 11.2 H, Neut # (Auto) 6.5, Lymph # (Auto) 1.0 L, Barnes # (Auto) 0.6, Eos # (Auto) 0.2, Baso # (Auto) 0.0, Absolute Nucleated RBC 0.00, Nucleated RBC % 0.0 12/25/19 05:35: Sodium 139, Potassium 4.0, Chloride 106, Carbon Dioxide 22, Anion Gap 11.0, BUN 23 H, Creatinine 1.1 H, Estimated GFR (MDRD) 48 L, Glucose 170 H, Calcium 9.0, Total Bilirubin 4.0 H, AST 211 H, ALT 143 H, Alkaline Phosphatase 36 L, Total Protein 6.4 L, Albumin 3.5, Globulin 2.9, Albumin/Globulin Ratio 1.2 12/25/19 05:35: WBC 17.0 H, RBC 3.23 L, Hgb 10.7 L, Hct 34.7 L, MCV 107.4 H, MCH 33.1 H, MCHC 30.8 L, RDW 15.0, Plt Count 201, MPV 11.7 H, Neut # (Auto) 15.4 H, Lymph # (Auto) 0.5 L, Barnes # (Auto) 0.7, Eos # (Auto) 0.1, Baso # (Auto) 0.1, Absolute Nucleated RBC 0.00, Nucleated RBC % 0.0 12/25/19 00:05: Urine Color YELLOW, Urine Clarity CLEAR, Urine pH 5.5, Ur Specific Campbell >=1.030 H, Urine Protein NEGATIVE, Urine Glucose (UA) NEGATIVE, Urine Ketones NEGATIVE, Urine Occult Blood NEGATIVE, Urine Nitrite NEGATIVE, Urine Bilirubin NEGATIVE, Urine Urobilinogen 0.2 (NORMAL), Ur Leukocyte Esterase NEGATIVE, Ur Microscopic Review NOT INDICATED, Urine Culture Comments NOT INDICATED 12/24/19 19:40: Troponin I High Sens 8.5 12/24/19 19:40: Sodium 138, Potassium 3.8, Chloride 101, Carbon Dioxide 25, Anion Gap 12.0, BUN 25 H, Creatinine 1.4 H, Estimated GFR (MDRD) 36 L, Glucose 174 H, Calcium 9.4, Total Bilirubin 2.3 H, AST 139 H, ALT 64 H, Alkaline Phosphatase 43, Total Protein 7.5, Albumin 4.3, Globulin 3.2, Albumin/Globulin Ratio 1.3, Lipase 34 12/24/19 19:40: WBC 14.3 H, RBC 3.69 L, Hgb 12.3, Hct 38.2, MCV 103.5 H, MCH 33.3 H, MCHC 32.2, RDW 14.8, Plt Count 231, MPV 11.3 H, Neut # (Auto) 12.5 H, Lymph # (Auto) 0.9 L, Barnes # (Auto) 0.6, Eos # (Auto) 0.2, Baso # (Auto) 0.1, Absolute Nucleated RBC 0.00, Nucleated RBC % 0.0 - Diagnostic Imaging Results Diagnostic Imaging Results: positive: Final report reviewed Diagnostic Imaging Results Comments: Abdominal ultrasound impression: 1. Cholelithiasis with gallbladder wall thickening and pericholecystic fluid suspicious for acute cholecystitis 2. Dilated biliary tree with common bile duct measuring 10.3 mm suspicious for biliary obstruction. Recommend correlation with clinical and laboratory data. 3. Echogenic liver. Finding typically represents fatty infiltration, however finding is nonspecific and other etiologies including hepatic cirrhosis can reduce in similar appearance. Recommend correlation with clinical and laboratory data. MRCP impression: 1. Findings of cholelithiasis and acute cholecystitis 2. Mild intra-and extrahepatic biliary dilatation without visible obstructing stone. This may be secondary to recently passed stone. 3. Mild pancreatic ductal dilatation. This is diffuse and may be evidence of r ecent edema at the ampulla. 4. Laparoscopic band at the GE junction in satisfactory position. 5. Prior median sternotomy - Diagnosis Diagnosis: 1. Coronary artery disease. 2. Systemic anticoagulation. 3. Cholecystitis. 4. Cholelithiasis. 5. No evidence of choledocholithiasis. 6. Fatty liver suspected HULL - Plan Plan: 84-year-old female with cholecystitis as well as cholelithiasis with multiple comorbid states with no evidence of choledocholithiasis by MRCP. History of coronary artery disease on systemic anticoagulation. Recommend laparoscopic cholecystectomy however patient will need to be medically optimized and re- stratified. Plan is as follows: (1) GI - IVF, bowel rest, GI ppx. Opiate sparring analgesia. (2) SURGERY - plan laparoscopic cholecystectomy with possible intraoperative cholangiogram. (3) Renal/Lytes - continue IVF. Renal indices within normal limits. (4) Respiratory - O2 as necessary. Continue nebulizers as necessary. Continue IS. Chest XR. Diuresis. (5) Heme - Will continue with DVT ppx. H/H stable. Continue to hold Eliquis. (6) Cardiovascular - HD acceptable. Request preoperative medical optimization and risk assessment from a hospital standpoint given her extensive history of coronary artery disease. Continue to hold Eliquis. (7) Neuro - Opiate sparring analgesia. Antispasmodics with Robaxin. Neuropathic agents for perioperative analgesia. (8) Infectious disease - in the setting of cholecystitis we will continue antibiotics.
--- NOTE | 2019-12-26 07:44 | PROVIDER PROGRESS NOTE ---
Subjective - Prog Note Date Prog Note Date: 12/26/19 - Subjective Subjective: She reports her abdominal pain has improved. Reports no chest pain or dyspnea. She states she does not have any chest pain with exertion. She is not very active due to a left patella dislocation that occurred 3 months ago. She reports no history of stroke, diabetes, renal disease. She did have a CABG 10 years ago for coronary artery disease. She has been doing quite well since then and denies any angina with any exertion. Current Medications - Current Medications Current Medications: Active Medications Acetaminophen (Tylenol) 650 mg PO Q4HR PRN PRN Reason: Pain 1 to 4 Last Admin: 12/26/19 07:03 Dose: 650 mg Documented by: Enoxaparin Sodium (Lovenox) 100 mg SUBQ BID [facility] Last Admin: 12/26/19 08:32 Dose: 100 mg Documented by: Metronidazole (Flagyl 500 Mg/100 Ml) 500 mg in 100 mls @ 100 mls/hr IV Q8H [facility] Last Infusion: 12/26/19 09:35 Dose: Infused Documented by: Ciprofloxacin (Cipro 400 Mg/200 Ml) 400 mg in 200 mls @ 200 mls/hr IV Q12H [facility] Last Infusion: 12/26/19 02:15 Dose: Infused Documented by: Sodium Chloride (Normal Saline 0.9%) 1,000 mls @ 125 mls/hr IV .Q8H [facility] Last Infusion: 12/26/19 09:35 Dose: 125 mls/hr Documented by: Morphine Sulfate (Morphine (Carpuject)) 4 mg IVP Q3HR PRN PRN Reason: Pain 8 to 10 Last Admin: 12/25/19 08:04 Dose: 4 mg Documented by: Multi-Ingredient Ointment (Zinc Oxide) 1 applic TOP PRN PRN PRN Reason: Skin Care Last Admin: 12/25/19 05:11 Dose: 1 applic Documented by: Ondansetron HCl (Zofran Inj) 4 mg IVP Q4HR PRN PRN Reason: Nausea / Vomiting Last Admin: 12/25/19 15:01 Dose: 4 mg Documented by: Oxycodone HCl (Roxicodone) 5 mg PO Q4HR PRN PRN Reason: Pain 5 to 7 Last Admin: 12/26/19 02:13 Dose: 5 mg Documented by: Pantoprazole Sodium (Protonix) 40 mg IVP QDAC [facility] Last Admin: 12/26/19 06:58 Dose: 40 mg Documented by: Sodium Chloride (Normal Saline Flush 0.9%) 10 ml IVP PRN PRN PRN Reason: NEEDED PER PROVIDER ORDERS Last Admin: 12/26/19 06:59 Dose: 10 ml Documented by: Sodium Chloride (Normal Saline Flush 0.9%) 10 ml IVP 0100,0900,1700 [facility] Last Admin: 12/26/19 08:32 Dose: Not Given Documented by: Albuterol Sulfate [Albuterol Sulfate Hfa] 2 puffs INH Q4H PRN 12/25/19 Apixaban [Eliquis] 5 mg PO BID 12/25/19 Metoprolol Succinate [Toprol Xl] 25 mg PO DAILY 12/25/19 Objective - Vital Signs/Intake & Output Reviewed Vital Signs: Yes Vital Signs: Vital Signs x48h Temp Pulse Resp BP Pulse Ox 12/26/19 03:06 36.6 C 85 18 142/68 H 96 12/26/19 00:19 36.6 C 73 18 107/55 L 97 Intake & Output: Intake & Output 12/23/19 12/24/19 12/25/19 12/26/19 23:59 23:59 23:59 23:59 Intake Total 2813 1300 Output Total 100 Balance 2713 1300 - Objective General Appearance: positive: No acute distress, Alert Eyes Bilateral: positive: Normal inspection, Conjunctivae nml ENT: positive: ENT inspection nml Neck: positive: Nml inspection Respiratory: positive: No respiratory distress. negative: Wheezes, Rales, Rhonchi Cardiovascular: positive: Irregularly irregular. negative: Tachycardia, Bradycardia, Systolic murmur Abdomen: positive: Nml bowel sounds, No distention, Tenderness (She still has mild tenderness in the right upper quadrant.). negative: Non-tender, Guarding, Rebound Skin: positive: Warm, Dry Extremities: positive: Pedal edema (Trace pitting edema in the left lower extremity.) Neurologic/Psychiatric: positive: Oriented x3, Motor nml - Lab Results Fish Bones: 12/26/19 05:17 12/26/19 05:17 Other Labs: Lab Results x24hrs 12/26/19 12/26/19 Range/Units 05:17 05:17 WBC 8.4 (4.8-10.8) x10^3/uL RBC 2.96 L (4.20-5.40) 10^6/uL Hgb 9.7 L (12.0-16.0) g/dL Hct 30.8 L (37.0-47.0) % MCV 104.1 H (81.0-99.0) fL MCH 32.8 H (27.0-31.0) pg MCHC 31.5 L (32.0-36.0) g/dL RDW 15.3 H (12.0-15.0) % Plt Count 145 (130-450) 10^3/uL MPV 11.2 H (7.9-10.8) fL Neut # (Auto) 6.5 (1.5-6.6) 10^3/uL Lymph # (Auto) 1.0 L (1.5-3.5) 10^3/uL [place] # (Auto) 0.6 (0.0-1.0) 10^3/uL Eos # (Auto) 0.2 (0.0-0.7) 10^3/uL Baso # (Auto) 0.0 (0.0-0.1) 10^3/uL Absolute Nucleated RBC 0.00 x10^3/uL Nucleated RBC % 0.0 /100WBC Sodium 139 (135-145) mmol/L Potassium 3.6 (3.5-5.0) mmol/L Chloride 112 H (101-111) mmol/L Carbon Dioxide 20 L (21-32) mmol/L Anion Gap 7.0 (6-13) BUN 22 H (6-20) mg/dL Creatinine 0.9 (0.4-1.0) mg/dL Estimated GFR (MDRD) 60 L (>89) Glucose 88 (70-100) mg/dL Calcium 8.4 L (8.5-10.3) mg/dL Total Bilirubin 4.9 H (0.2-1.0) mg/dL AST 101 H (10-42) IU/L ALT 102 H (10-60) IU/L Alkaline Phosphatase 34 L (42-121) IU/L Total Protein 5.9 L (6.7-8.2) g/dL Albumin 3.3 (3.2-5.5) g/dL Globulin 2.6 (2.1-4.2) g/dL Albumin/Globulin Ratio 1.3 (1.0-2.2) ABX Reporting Has patient been on IV antibiotics over the past 48 hours?: Yes Assessment/Plan - Problem List (1) Cholecystitis Impression: MRCP confirms chronic cholecystitis and cholelithiasis. There is no obvious ductal obstruction. The ducts were mildly dilated which could have represented a passed stone. We will continue her on ciprofloxacin and Flagyl IV. We will keep her n.p.o. Discussed with general surgery and plan will be for surgical intervention tomorrow. (2) Preop examination Impression: She does have a history of coronary artery disease with CABG about 10 years ago. She is unable to function greater than 4 METS due to musculoskeletal issues. She denies any angina does not appear to be in heart failure. She has no renal disease, prior history of strokes, diabetes. Her prior echocardiogram available to me shows a preserved ejection fraction with no significant valvular disease. There are no obvious murmurs on exam. She does have atrial fibrillation but she is currently rate controlled. At this time, she is medically optimized for surgical intervention. No further cardiac work-up is required. Will recommend continuing her beta-obed. Her [place] perioperative risk for myocardial infarction or cardiac arrest is 0.7%. (3) Atrial fibrillation Impression: She is rate controlled. We will continue her home metoprolol. We will continue Lovenox with last dose being this evening and will hold morning dose first OR tomorrow. Qualifiers: Atrial fibrillation type: paroxysmal Qualified Code(s): I48.0 - Paroxysmal atrial fibrillation (4) History of coronary artery disease Impression: She is status post CABG in 2009. Stable. We will continue her beta-obed. (5) Acute kidney injury Impression: This has resolved. This was likely prerenal injury given the sepsis. Renal function is back to baseline. We will continue to monitor her renal function and urine output.
[2019-12-26] MEDS: ENOXAPARIN 100 MG/ML SYRINGE SUBQ SCH ×3 (08:32→20:20)
[2019-12-26] MEDS: DEXTROSE 5%-0.45% NACL 1,000 ML IV SCH (18:49)
[2019-12-26] MEDS: ZINC OXIDE 20% OINT 30 GM TUBE TOP PRN (23:59)
[2019-12-27] MEDS: metroNIDAZOLE 500 MG/100 ML 500 MG/100 ML BAG IV SCH ×3 (00:14→17:38)
[2019-12-27] MEDS: CIPROFLOXACIN 400 MG/200 ML 400 MG/200 ML BAG IV SCH ×2 (03:08→16:07)
[2019-12-27] MEDS: oxyCODONE 5 MG TABLET PO PRN ×2 (04:25→16:20)
[2019-12-27 05:32] LABS: BASOPHILS % (AUTO) 0.5 %; EOSINOPHILS # (AUTO) 0.1 10^3/uL (0.0-0.7); EOSINOPHILS % (AUTO) 1.7 %; LYMPHOCYTES # (AUTO) 0.9 10^3/uL (1.5-3.5); LYMPHOCYTES % (AUTO) 10.7 %; MEAN CORPUSCULAR HEMOGLOBIN 33.6 pg (27.0-31.0); MEAN CORPUSCULAR HGB CONC 32.4 g/dL (32.0-36.0); MEAN CORPUSCULAR VOLUME 103.7 fL (81.0-99.0); MEAN PLATELET VOLUME 11.2 fL (7.9-10.8); MONOCYTES # (AUTO) 0.7 10^3/uL (0.0-1.0); MONOCYTES % (AUTO) 8.8 %; NEUTROPHILS # (AUTO) 6.5 10^3/uL (1.5-6.6); NEUTROPHILS % (AUTO) 77.6 %; PLT - PLATELET COUNT 152 10^3/uL (130-450); RED BLOOD COUNT 2.98 10^6/uL (4.20-5.40); WHITE BLOOD COUNT 8.3 x10^3/uL (4.8-10.8)
[2019-12-27 05:45] LABS: ALBUMIN 3.3 g/dL (3.2-5.5); ALBUMIN/GLOBULIN RATIO 1.2 (1.0-2.2); BILIRUBIN,TOTAL 2.4 mg/dL (0.2-1.0); CALCIUM 8.4 mg/dL (8.5-10.3); CREATININE 0.7 mg/dL (0.4-1.0); TOTAL PROTEIN 6.1 g/dL (6.7-8.2)
[2019-12-27] MEDS: DEXTROSE 5%-0.45% NACL 1,000 ML IV SCH ×2 (06:21→17:33)
[2019-12-27] MEDS: PANTOPRAZOLE 40 MG VIAL IVP SCH (06:21)
[2019-12-27] MEDS: SODIUM CHLORIDE FLUSH 0.9% 10 ML SYRINGE IVP SCH ×4 (06:22→23:46)
[2019-12-27] MEDS: METOPROLOL SUCCINATE 25 MG TABLET PO SCH (08:38)
[2019-12-27] MEDS: SODIUM CHLORIDE FLUSH 0.9% 10 ML SYRINGE IVP PRN ×3 (08:52→21:07)
--- NOTE | 2019-12-27 09:19 | PROVIDER PROGRESS NOTE ---
Subjective - Prog Note Date Prog Note Date: 12/27/19 - Subjective Subjective: She is in good spirits. She is little anxious for surgery today. Reports mild right upper quadrant ric pain yesterday evening but today she denies any pain. Reports no nausea or vomiting. Current Medications - Current Medications Current Medications: Active Medications Acetaminophen (Tylenol) 650 mg PO Q4HR PRN PRN Reason: Pain 1 to 4 Last Admin: 12/26/19 07:03 Dose: 650 mg Documented by: Metronidazole (Flagyl 500 Mg/100 Ml) 500 mg in 100 mls @ 100 mls/hr IV Q8H [facility] Last Admin: 12/27/19 08:53 Dose: 100 mls/hr Documented by: Ciprofloxacin (Cipro 400 Mg/200 Ml) 400 mg in 200 mls @ 200 mls/hr IV Q12H [facility] Last Infusion: 12/27/19 04:08 Dose: Infused Documented by: Dextrose/Sodium Chloride (D5.45ns) 1,000 mls @ 83.333 mls/hr IV .Q12H [facility] Last Admin: 12/27/19 06:21 Dose: 83.333 mls/hr Documented by: Metoprolol Succinate (Toprol Xl) 25 mg PO DAILY [facility] Last Admin: 12/27/19 08:38 Dose: 25 mg Documented by: Morphine Sulfate (Morphine (Carpuject)) 4 mg IVP Q3HR PRN PRN Reason: Pain 8 to 10 Last Admin: 12/25/19 08:04 Dose: 4 mg Documented by: Multi-Ingredient Ointment (Zinc Oxide) 1 applic TOP PRN PRN PRN Reason: Skin Care Last Admin: 12/26/19 23:59 Dose: 1 applic Documented by: Ondansetron HCl (Zofran Inj) 4 mg IVP Q4HR PRN PRN Reason: Nausea / Vomiting Last Admin: 12/25/19 15:01 Dose: 4 mg Documented by: Oxycodone HCl (Roxicodone) 5 mg PO Q4HR PRN PRN Reason: Pain 5 to 7 Last Admin: 12/27/19 04:25 Dose: 5 mg Documented by: Pantoprazole Sodium (Protonix) 40 mg IVP QDAC [facility] Last Admin: 12/27/19 06:21 Dose: 40 mg Documented by: Sodium Chloride (Normal Saline Flush 0.9%) 10 ml IVP PRN PRN PRN Reason: NEEDED PER PROVIDER ORDERS Last Admin: 12/27/19 08:52 Dose: 10 ml Documented by: Sodium Chloride (Normal Saline Flush 0.9%) 10 ml IVP 0100,0900,1700 [facility] Last Admin: 12/27/19 06:24 Dose: 10 ml Documented by: Albuterol Sulfate [Albuterol Sulfate Hfa] 2 puffs INH Q4H PRN 12/25/19 Apixaban [Eliquis] 5 mg PO BID 12/25/19 Metoprolol Succinate [Toprol Xl] 25 mg PO DAILY 12/25/19 Objective - Vital Signs/Intake & Output Reviewed Vital Signs: Yes Vital Signs: Vital Signs x48h Temp Pulse Resp BP Pulse Ox 12/27/19 08:06 36.7 C 94 20 141/63 H 95 12/27/19 03:15 37.0 C 90 18 160/77 H 95 Intake & Output: Intake & Output 12/24/19 12/25/19 12/26/19 12/27/19 23:59 23:59 23:59 23:59 Intake Total 2813 2760.416 1019.442 Output Total 100 400 Balance 2713 2760.416 619.442 - Objective General Appearance: positive: No acute distress, Alert Eyes Bilateral: positive: Conjunctivae nml ENT: positive: ENT inspection nml Neck: positive: Nml inspection Respiratory: positive: No respiratory distress. negative: Wheezes, Rales Cardiovascular: positive: Irregularly irregular. negative: Tachycardia, Frank ycardia, Systolic murmur Abdomen: positive: No distention, Tenderness (Minimal right upper quadrant tenderness.). negative: Non-tender, Guarding, Rebound Skin: positive: Warm, Dry Extremities: positive: Full ROM Neurologic/Psychiatric: positive: Oriented x3 - Lab Results Fish Bones: 12/27/19 05:22 12/27/19 05:22 Other Labs: Lab Results x24hrs 12/27/19 12/27/19 Range/Units 05:22 05:22 WBC 8.3 (4.8-10.8) x10^3/uL RBC 2.98 L (4.20-5.40) 10^6/uL Hgb 10.0 L (12.0-16.0) g/dL Hct 30.9 L (37.0-47.0) % MCV 103.7 H (81.0-99.0) fL MCH 33.6 H (27.0-31.0) pg MCHC 32.4 (32.0-36.0) g/dL RDW 15.0 (12.0-15.0) % Plt Count 152 (130-450) 10^3/uL MPV 11.2 H (7.9-10.8) fL Neut # (Auto) 6.5 (1.5-6.6) 10^3/uL Lymph # (Auto) 0.9 L (1.5-3.5) 10^3/uL [place] # (Auto) 0.7 (0.0-1.0) 10^3/uL Eos # (Auto) 0.1 (0.0-0.7) 10^3/uL Baso # (Auto) 0.0 (0.0-0.1) 10^3/uL Absolute Nucleated RBC 0.00 x10^3/uL Nucleated RBC % 0.0 /100WBC Sodium 136 (135-145) mmol/L Potassium 3.6 (3.5-5.0) mmol/L Chloride 110 (101-111) mmol/L Carbon Dioxide 18 L (21-32) mmol/L Anion Gap 8.0 (6-13) BUN 17 (6-20) mg/dL Creatinine 0.7 (0.4-1.0) mg/dL Estimated GFR (MDRD) 80 L (>89) Glucose 124 H (70-100) mg/dL Calcium 8.4 L (8.5-10.3) mg/dL Total Bilirubin 2.4 H (0.2-1.0) mg/dL AST 54 H (10-42) IU/L ALT 73 H (10-60) IU/L Alkaline Phosphatase 37 L (42-121) IU/L Total Protein 6.1 L (6.7-8.2) g/dL Albumin 3.3 (3.2-5.5) g/dL Globulin 2.8 (2.1-4.2) g/dL Albumin/Globulin Ratio 1.2 (1.0-2.2) ABX Reporting Has patient been on IV antibiotics over the past 48 hours?: Yes Assessment/Plan - Problem List (1) Cholecystitis Impression: MRCP confirmed acute cholecystitis and cholelithiasis. There was no choledocholithiasis. Her LFTs are improving today which suggest she likely had a stone that passed. Clinically she is stable with no white count or fever and her abdominal pain is controlled. We will continue ciprofloxacin and Flagyl IV. Plan is OR today for laparoscopic cholecystectomy. We will likely start her on clear liquid diet postoperatively. (2) Atrial fibrillation Impression: She remains rate controlled. We will continue her beta-obed during the ac- operative period. We will resume her home Eliquis postoperatively once it is okay with general surgery. Qualifiers: Atrial fibrillation type: paroxysmal Qualified Code(s): I48.0 - Paroxysmal atrial fibrillation (3) History of coronary artery disease Impression: Stable. Continue home beta-obed. We will resume Eliquis postoperatively when appropriate. (4) Acute kidney injury Impression: This was likely pre-renal injury and has resolved. Her creatinine was 1.4 on admission and is now back to her baseline of 0.7.
--- NOTE | 2019-12-27 09:38 | ANESTHESIA ---
Pre-Anesthesia VS, & Labs - Diagnosis Diagnosis 1. Coronary artery disease 2. Systemic anticoagulation 3. Cholecystitis 4. Cholelithiasis 5. No evidence of choledocholithiasis 6. Fatty liver suspected HULL - Procedure Lap Ruth, possible grams, possible removal of fluid from lap band. Vital Signs: Temp Pulse Resp BP Pulse Ox 36.7 C 94 20 141/63 H 95 12/27/19 08:06 12/27/19 08:06 12/27/19 08:06 12/27/19 08:06 12/27/19 08:06 Height: 5 ft 2 in Weight (kg): 107.5 kg Body Mass Index: 43.3 BMI Classification: Morbidly Obese - NPO >8 hours - Is Patient ?: No - Lab Results Current Lab Results: Laboratory Tests 12/27/19 05:22: Sodium 136, Potassium 3.6, Chloride 110, Carbon Dioxide 18 L, Anion Gap 8.0, BUN 17, Creatinine 0.7, Estimated GFR (MDRD) 80 L, Glucose 124 H, Calcium 8.4 L, Total Bilirubin 2.4 H, AST 54 H, ALT 73 H, Alkaline Phosphatase 37 L, Total Protein 6.1 L, Albumin 3.3, Globulin 2.8, Albumin/Globulin Ratio 1.2 12/27/19 05:22: WBC 8.3, RBC 2.98 L, Hgb 10.0 L, Hct 30.9 L, MCV 103.7 H, MCH 33.6 H, MCHC 32.4, RDW 15.0, Plt Count 152, MPV 11.2 H, Neut # (Auto) 6.5, Lymph # (Auto) 0.9 L, [place] # (Auto) 0.7, Eos # (Auto) 0.1, Baso # (Auto) 0.0, Absolute Nucleated RBC 0.00, Nucleated RBC % 0.0 12/26/19 05:17: Sodium 139, Potassium 3.6, Chloride 112 H, Carbon Dioxide 20 L, Anion Gap 7.0, BUN 22 H, Creatinine 0.9, Estimated GFR (MDRD) 60 L, Glucose 88, Calcium 8.4 L, Total Bilirubin 4.9 H, AST 101 H, ALT 102 H, Alkaline Phosphatase 34 L, Total Protein 5.9 L, Albumin 3.3, Globulin 2.6, Albumin/Globulin Ratio 1.3 12/26/19 05:17: WBC 8.4, RBC 2.96 L, Hgb 9.7 L, Hct 30.8 L, MCV 104.1 H, MCH 32.8 H, MCHC 31.5 L, RDW 15.3 H, Plt Count 145, MPV 11.2 H, Neut # (Auto) 6.5, Lymph # (Auto) 1.0 L, [place] # (Auto) 0.6, Eos # (Auto) 0.2, Baso # (Auto) 0.0, Absolute Nucleated RBC 0.00, Nucleated RBC % 0.0 12/25/19 05:35: Sodium 139, Potassium 4.0, Chloride 106, Carbon Dioxide 22, Anion Gap 11.0, BUN 23 H, Creatinine 1.1 H, Estimated GFR (MDRD) 48 L, Glucose 170 H, Calcium 9.0, Total Bilirubin 4.0 H, AST 211 H, ALT 143 H, Alkaline Phosphatase 36 L, Total Protein 6.4 L, Albumin 3.5, Globulin 2.9, Albumin/Globulin Ratio 1.2 12/25/19 05:35: WBC 17.0 H, RBC 3.23 L, Hgb 10.7 L, Hct 34.7 L, MCV 107.4 H, MCH 33.1 H, MCHC 30.8 L, RDW 15.0, Plt Count 201, MPV 11.7 H, Neut # (Auto) 15.4 H, Lymph # (Auto) 0.5 L, [place] # (Auto) 0.7, Eos # (Auto) 0.1, Baso # (Auto) 0.1, Absolute Nucleated RBC 0.00, Nucleated RBC % 0.0 12/24/19 19:40: Troponin I High Sens 8.5 12/24/19 19:40: Sodium 138, Potassium 3.8, Chloride 101, Carbon Dioxide 25, Anion Gap 12.0, BUN 25 H, Creatinine 1.4 H, Estimated GFR (MDRD) 36 L, Glucose 174 H, Calcium 9.4, Total Bilirubin 2.3 H, AST 139 H, ALT 64 H, Alkaline Phosphatase 43, Total Protein 7.5, Albumin 4.3, Globulin 3.2, Albumin/Globulin Ratio 1.3, Lipase 34 12/24/19 19:40: WBC 14.3 H, RBC 3.69 L, Hgb 12.3, Hct 38.2, MCV 103.5 H, MCH 33.3 H, MCHC 32.2, RDW 14.8, Plt Count 231, MPV 11.3 H, Neut # (Auto) 12.5 H, Lymph # (Auto) 0.9 L, [place] # (Auto) 0.6, Eos # (Auto) 0.2, Baso # (Auto) 0.1, Absolute Nucleated RBC 0.00, Nucleated RBC % 0.0 Fish Bones: 12/27/19 05:22 12/27/19 05:22 Home Medications and Allergies Home Medications: Ambulatory Orders Albuterol Sulfate [Albuterol Sulfate Hfa] 2 puffs INH Q4H PRN 12/25/19 Apixaban [Eliquis] 5 mg PO BID 12/25/19 Metoprolol Succinate [Toprol Xl] 25 mg PO DAILY 12/25/19 Active Medications Acetaminophen (Tylenol) 650 mg PO Q4HR PRN PRN Reason: Pain 1 to 4 Last Admin: 12/26/19 07:03 Dose: 650 mg Documented by: Metronidazole (Flagyl 500 Mg/100 Ml) 500 mg in 100 mls @ 100 mls/hr IV Q8H [facility] Last Admin: 12/27/19 08:53 Dose: 100 mls/hr Documented by: Ciprofloxacin (Cipro 400 Mg/200 Ml) 400 mg in 200 mls @ 200 mls/hr IV Q12H [facility] Last Infusion: 12/27/19 04:08 Dose: Infused Documented by: Dextrose/Sodium Chloride (D5.45ns) 1,000 mls @ 83.333 mls/hr IV .Q12H [facility] Last Infusion: 12/27/19 08:50 Dose: 0 mls/hr Documented by: Metoprolol Succinate (Toprol Xl) 25 mg PO DAILY [facility] Last Admin: 12/27/19 08:38 Dose: 25 mg Documented by: Morphine Sulfate (Morphine (Carpuject)) 4 mg IVP Q3HR PRN PRN Reason: Pain 8 to 10 Last Admin: 12/25/19 08:04 Dose: 4 mg Documented by: Multi-Ingredient Ointment (Zinc Oxide) 1 applic TOP PRN PRN PRN Reason: Skin Care Last Admin: 12/26/19 23:59 Dose: 1 applic Documented by: Ondansetron HCl (Zofran Inj) 4 mg IVP Q4HR PRN PRN Reason: Nausea / Vomiting Last Admin: 12/25/19 15:01 Dose: 4 mg Documented by: Oxycodone HCl (Roxicodone) 5 mg PO Q4HR PRN PRN Reason: Pain 5 to 7 Last Admin: 12/27/19 04:25 Dose: 5 mg Documented by: Pantoprazole Sodium (Protonix) 40 mg IVP QDAC [facility] Last Admin: 12/27/19 06:21 Dose: 40 mg Documented by: Sodium Chloride (Normal Saline Flush 0.9%) 10 ml IVP PRN PRN PRN Reason: NEEDED PER PROVIDER ORDERS Last Admin: 12/27/19 08:52 Dose: 10 ml Documented by: Sodium Chloride (Normal Saline Flush 0.9%) 10 ml IVP 0100,0900,1700 [facility] Last Admin: 12/27/19 06:24 Dose: 10 ml Documented by: Albuterol Sulfate [Albuterol Sulfate Hfa] 2 puffs INH Q4H PRN 12/25/19 Apixaban [Eliquis] 5 mg PO BID 12/25/19 Metoprolol Succinate [Toprol Xl] 25 mg PO DAILY 12/25/19 Allergies/Adverse Reactions: Allergies Allergy/AdvReac Type Severity Reaction Status Date / Time amoxicillin Allergy Unknown Verified 12/24/19 19:21 iodine Allergy Hives Verified 12/24/19 19:21 shellfish derived Allergy Hives Verified 12/24/19 19:21 lactose AdvReac Cramps Verified 12/24/19 19:21 Anes History & Medical History - Anesthetic History Anesthesia Complications: reports: No previous complications Family history of Anesthesia Complications: Denies Family history of Malignant Hyperthermia: Denies - Medical History Cardiovascular: reports: Hypertension, Coronary artery disease, [place], Atrial fibrillation (Controlled on beta blockers) Pulmonary: reports: Asthma (Seasonal. No inhalers 4 months. Denies SOB.) Gastrointestinal: reports: None Urinary: reports: Kidney stones (Denies) Neuro: reports: None Musculoskeletal: reports: Osteoarthritis, Other (Recent dislocated patella.) Endocrine/Autoimmune: reports: None Blood Disorders: reports: None Skin: reports: Other Smoking Status: Never smoker Psychosocial: reports: Anxiety History of Cancer?: No - Surgical History General: Other (Lap band) Eyes Ears Nose Throat (EENT): Tonsil/Adenoidectomy Cardiothoracic: CABG Gynecologic: Hysterectomy Exam General: Alert, Oriented x3, Cooperative, Mild distress Dental: Poor dentition Mouth Openin Fingerbreadth Neck Mobility: Reduced Mallampati classification: II Thyromental Distance: 4-6 cm Respiratory: Lungs clear Cardiovascular: Other (A-fib, regularly irregular) Mental/Cognitive Status: Alert/Oriented X3, Normal for patient Cognitive Status: Within normal limits Plan Anesthesia Type: General Consent for Procedure(s) Verified and Reviewed: Yes Code Status: Attempt Resuscitation ASA classification: 3-Severe systemic disease Is this case an emergency?: No (Discussed anesthesia. Questions answered.)
[2019-12-27] MEDS ORDERED: hydrALAZINE INJ 20 MG/ML VIAL IVP PRN (09:42)
[2019-12-27] MEDS ORDERED: ePHEDrine 50 MG/ML VIAL IVP PRN (09:42)
[2019-12-27] MEDS ORDERED: NALOXONE 0.4 MG/ML VIAL IVP PRN (09:42)
[2019-12-27] MEDS ORDERED: ATROPINE ABBOJECT 1 MG/10 ML SYRINGE IVP PRN (09:42)
[2019-12-27] MEDS ORDERED: MORPHINE 2 MG/ML CARPUJECT IVP PRN (09:42)
[2019-12-27] MEDS ORDERED: HYDROmorphone 0.5 MG/0.5 ML SYRINGE IVP PRN (09:42)
[2019-12-27] MEDS ORDERED: METOCLOPRAMIDE 10 MG/2 ML VIAL IVP PRN (09:42)
[2019-12-27] MEDS ORDERED: ONDANSETRON 4 MG/2 ML VIAL IVP PRN (09:42)
[2019-12-27] MEDS ORDERED: LACTATED RINGERS 1,000 ML IV SCH (10:00)
[2019-12-27] MEDS ORDERED: LIDOCAINE 1%-EPI 1:100000 20 ML MDV ONE (10:46)
[2019-12-27] MEDS ORDERED: BUPIVACAINE 0.5% PF 30 ML VIAL ONE (10:46)
[2019-12-27] MEDS ORDERED: LIDOCAINE 1%-EPI 1:100000 30 ML MDV SUBQ ONE (12:22)
[2019-12-27] MEDS ORDERED: BUPIVACAINE 0.5% PF 30 ML VIAL INFIL ONE (12:23)
[2019-12-27] MEDS ORDERED: LACTATED RINGERS 1,000 ML IV ONE (14:00)
--- NOTE | 2019-12-27 14:10 | OPERATIVE REPORT ---
Operative Report - General Admit Date: 12/25/19 Procedure Date: 12/27/19 Planned Procedure: 1. Diagnostic laparoscopy 2. Decompression of laparoscopic gastric band reservoir 3. Laparoscopic cholecystectomy 4. Umbilical hernia repair, primary open Pre-Op Diagnosis: Cholecystitis, biliary colic, cholelithiasis, hyperbilirubinemia Procedure Performed: 1. Diagnostic laparoscopy 2. Decompression of laparoscopic gastric band reservoir 3. Laparoscopic cholecystectomy 4. Umbilical hernia repair, primary open Post Op Diagnosis: Same, early gangrenous cholecystitis, critical view of safety obtained. - Procedure Note Primary Surgeon: Greg Anesthesia Provider: Hans Anesthesia Technique: General ET tube, Local Pathology: Gallbladder Estimated Blood Loss (mL): 200 Indications: See EMR Findings: 1. Densely adhered tethered gallbladder significantly dilated requiring decompression 2. Early gangrenous cholecystitis with careful retention of all stones which were removed en bloc with the gallbladder 3. Critical view of safety obtained 2 and only 2 structures going into the gallbladder 4. Laparoscopic gastric band port identified and decompressed for 3 cc Complications: NONE - Other Other Information/Narrative: Pending addendum.
--- NOTE | 2019-12-27 14:26 | ANESTHESIA POST OP EVALUATION ---
Anesthesia Post Eval - Post Anesthesia Eval Vitals: Last Vital Signs Temp 36.2 C L 12/27/19 14:00 Pulse 110 H 12/27/19 14:20 Resp 23 12/27/19 14:20 BP 151/90 H 12/27/19 14:20 Pulse Ox 99 12/27/19 14:20 CV Function Including HR & BP: positive: Stable Pain Control: positive: Satisfactory Nausea & Vomiting: positive: Negative Mental Status: positive: Baseline Respiratory Status: Airway Patent Hydration Status: Satisfactory Anesthesia Complications: positive: None
[2019-12-27] MEDS ORDERED: fentaNYL 100 MCG/2 ML VIAL ONE (14:42)
[2019-12-27] MEDS ORDERED: ONDANSETRON 4 MG/2 ML VIAL ONE (14:47)
[2019-12-27] MEDS ORDERED: METOCLOPRAMIDE 10 MG/2 ML VIAL ONE (14:52)
[2019-12-27] MEDS: fentaNYL 100 MCG/2 ML VIAL IVP PRN ×3 (14:55→15:05)
[2019-12-27] MEDS ORDERED: PROCHLORPERAZINE 10 MG/2 ML VIAL ONE (15:05)
[2019-12-27] MEDS ORDERED: PROCHLORPERAZINE 10 MG/2 ML VIAL IVP PRN (15:13)
[2019-12-27] MEDS: MORPHINE 2 MG/ML CARPUJECT IVP PRN ×4 (15:40→23:12)
[2019-12-27] MEDS: KETOROLAC 15 MG/ML VIAL IVP SCH ×3 (17:37→23:46)
[2019-12-27] MEDS: ONDANSETRON 4 MG/2 ML VIAL IVP PRN (19:03)
[2019-12-28] MEDS: metroNIDAZOLE 500 MG/100 ML 500 MG/100 ML BAG IV SCH ×3 (00:43→17:34)
[2019-12-28] MEDS: oxyCODONE 5 MG TABLET PO PRN ×4 (00:47→16:25)
[2019-12-28] MEDS: CIPROFLOXACIN 400 MG/200 ML 400 MG/200 ML BAG IV SCH ×2 (01:42→14:11)
[2019-12-28] MEDS: MORPHINE 2 MG/ML CARPUJECT IVP PRN ×5 (03:36→20:05)
[2019-12-28] MEDS: DEXTROSE 5%-0.45% NACL 1,000 ML IV SCH (05:22)
[2019-12-28 05:40] LABS: BASOPHILS % (AUTO) 0.1 %; LYMPHOCYTES # (AUTO) 0.5 10^3/uL (1.5-3.5); LYMPHOCYTES % (AUTO) 6.2 %; MEAN CORPUSCULAR HEMOGLOBIN 33.8 pg (27.0-31.0); MEAN CORPUSCULAR VOLUME 102.6 fL (81.0-99.0); MEAN PLATELET VOLUME 11.9 fL (7.9-10.8); MONOCYTES # (AUTO) 0.7 10^3/uL (0.0-1.0); NEUTROPHILS # (AUTO) 7.1 10^3/uL (1.5-6.6); NEUTROPHILS % (AUTO) 84.9 %; PLT - PLATELET COUNT 144 10^3/uL (130-450); RED BLOOD COUNT 2.66 10^6/uL (4.20-5.40); RED CELL DISTRIBUTION WIDTH 14.7 % (12.0-15.0); WHITE BLOOD COUNT 8.4 x10^3/uL (4.8-10.8)
[2019-12-28 05:59] LABS: ALBUMIN 2.9 g/dL (3.2-5.5); ALBUMIN/GLOBULIN RATIO 1.2 (1.0-2.2); BILIRUBIN,TOTAL 1.8 mg/dL (0.2-1.0); CALCIUM 8.2 mg/dL (8.5-10.3); CREATININE 0.9 mg/dL (0.4-1.0); TOTAL PROTEIN 5.4 g/dL (6.7-8.2)
[2019-12-28] MEDS: KETOROLAC 15 MG/ML VIAL IVP SCH (06:02)
[2019-12-28] MEDS: PANTOPRAZOLE 40 MG VIAL IVP SCH (06:02)
[2019-12-28] MEDS: SODIUM CHLORIDE FLUSH 0.9% 10 ML SYRINGE IVP PRN ×3 (06:57→20:11)
[2019-12-28] MEDS: METOPROLOL SUCCINATE 25 MG TABLET PO SCH (08:16)
[2019-12-28] MEDS: polyethylene glycoL 3350 17 GM PACKET PO SCH (08:17)
--- NOTE | 2019-12-28 14:39 | PROVIDER PROGRESS NOTE ---
Subjective - Prog Note Date Prog Note Date: 12/28/19 - Subjective Subjective: She complains of right upper quadrant abdominal pain postoperatively. She is also noted oozing from the left side of her abdomen at the site of one of the laparoscopic incisions. She states she is passing gas and did have a small bowel movement. She is tolerating a clear liquid diet. She feels like she is not quite ready to go home today. Current Medications - Current Medications Current Medications: Active Medications Acetaminophen (Tylenol) 650 mg PO Q4HR PRN PRN Reason: Pain 1 to 4 Last Admin: 12/26/19 07:03 Dose: 650 mg Documented by: Metronidazole (Flagyl 500 Mg/100 Ml) 500 mg in 100 mls @ 100 mls/hr IV Q8H [facility] Last Infusion: 12/28/19 10:06 Dose: Infused Documented by: Ciprofloxacin (Cipro 400 Mg/200 Ml) 400 mg in 200 mls @ 200 mls/hr IV Q12H [facility] Last Infusion: 12/28/19 15:52 Dose: Infused Documented by: Metoprolol Succinate (Toprol Xl) 25 mg PO DAILY [facility] Last Admin: 12/28/19 08:16 Dose: 25 mg Documented by: Morphine Sulfate (Morphine (Carpuject)) 4 mg IVP Q2HR PRN PRN Reason: Pain 8 to 10 Last Admin: 12/28/19 13:43 Dose: 4 mg Documented by: Multi-Ingredient Ointment (Zinc Oxide) 1 applic TOP PRN PRN PRN Reason: Skin Care Last Admin: 12/26/19 23:59 Dose: 1 applic Documented by: Ondansetron HCl (Zofran Inj) 4 mg IVP Q4HR PRN PRN Reason: Nausea / Vomiting Last Admin: 12/27/19 19:03 Dose: 4 mg Documented by: Oxycodone HCl (Roxicodone) 5 mg PO Q4HR PRN PRN Reason: Pain 5 to 7 Last Admin: 12/28/19 12:08 Dose: 5 mg Documented by: Pantoprazole Sodium (Protonix) 40 mg IVP QDAC [facility] Last Admin: 12/28/19 06:02 Dose: 40 mg Documented by: Polyethylene Glycol (Miralax) 17 gm PO DAILY [facility] Last Admin: 12/28/19 08:17 Dose: Not Given Documented by: Prochlorperazine Edisylate (Compazine Inj) 10 mg IVP Q6HR PRN PRN Reason: Nausea / Vomiting Senna (Senokot) 8.6 mg PO DAILY [facility] Sodium Chloride (Normal Saline Flush 0.9%) 10 ml IVP PRN PRN PRN Reason: NEEDED PER PROVIDER ORDERS Last Admin: 12/28/19 10:09 Dose: 10 ml Documented by: Sodium Chloride (Normal Saline Flush 0.9%) 10 ml IVP 0100,0900,1700 [facility] Last Admin: 12/27/19 23:46 Dose: 10 ml Documented by: Albuterol Sulfate [Albuterol Sulfate Hfa] 2 puffs INH Q4H PRN 12/25/19 Apixaban [Eliquis] 5 mg PO BID 12/25/19 Metoprolol Succinate [Toprol Xl] 25 mg PO DAILY 12/25/19 Objective - Vital Signs/Intake & Output Reviewed Vital Signs: Yes Vital Signs: Vital Signs x48h Temp Pulse Resp BP Pulse Ox 12/28/19 13:00 36.9 C 87 20 120/52 L 99 12/28/19 08:50 36.8 C 80 20 116/93 H 99 Intake & Output: Intake & Output 12/25/19 12/26/19 12/27/19 12/28/19 23:59 23:59 23:59 23:59 Intake Total 2813 2760.416 2186.386 1493.056 Output Total 100 875 375 Balance 2713 2760.416 2200.543 0571.056 - Objective General Appearance: positive: Alert, Mild distress Eyes Bilateral: positive: Normal inspection, Conjunctivae nml ENT: positive: ENT inspection nml Neck: positive: Nml inspection Respiratory: positive: No respiratory distress. negative: Wheezes, Rales Cardiovascular: positive: No murmur. negative: Irregularly irregular, Tachycardia, Bradycardia Abdomen: positive: Nml bowel sounds, No distention, Tenderness (Right upper quadrant tenderness), Other (The dressing in place over the incision site on the left side of her abdomen is saturated with serosanguineous fluid and some blood.). negative: Non-tender, Guarding, Rebound Skin: positive: Warm, Dry Extremities: positive: Full ROM, No pedal edema Neurologic/Psychiatric: negative: Disoriented to person, Disoriented to place - Lab Results Fish Bones: 12/28/19 05:00 12/28/19 05:00 Other Labs: Lab Results x24hrs 12/28/19 12/28/19 Range/Units 05:00 05:00 WBC 8.4 (4.8-10.8) x10^3/uL RBC 2.66 L (4.20-5.40) 10^6/uL Hgb 9.0 L (12.0-16.0) g/dL Hct 27.3 L (37.0-47.0) % MCV 102.6 H (81.0-99.0) fL MCH 33.8 H (27.0-31.0) pg MCHC 33.0 (32.0-36.0) g/dL RDW 14.7 (12.0-15.0) % Plt Count 144 (130-450) 10^3/uL MPV 11.9 H (7.9-10.8) fL Neut # (Auto) 7.1 H (1.5-6.6) 10^3/uL Lymph # (Auto) 0.5 L (1.5-3.5) 10^3/uL [place] # (Auto) 0.7 (0.0-1.0) 10^3/uL Eos # (Auto) 0.0 (0.0-0.7) 10^3/uL Baso # (Auto) 0.0 (0.0-0.1) 10^3/uL Absolute Nucleated RBC 0.02 x10^3/uL Nucleated RBC % 0.2 /100WBC Sodium 135 (135-145) mmol/L Potassium 3.9 (3.5-5.0) mmol/L Chloride 107 (101-111) mmol/L Carbon Dioxide 20 L (21-32) mmol/L Anion Gap 8.0 (6-13) BUN 17 (6-20) mg/dL Creatinine 0.9 (0.4-1.0) mg/dL Estimated GFR (MDRD) 60 L (>89) Glucose 184 H (70-100) mg/dL Calcium 8.2 L (8.5-10.3) mg/dL Total Bilirubin 1.8 H (0.2-1.0) mg/dL AST 54 H (10-42) IU/L ALT 56 (10-60) IU/L Alkaline Phosphatase 29 L (42-121) IU/L Total Protein 5.4 L (6.7-8.2) g/dL Albumin 2.9 L (3.2-5.5) g/dL Globulin 2.5 (2.1-4.2) g/dL Albumin/Globulin Ratio 1.2 (1.0-2.2) ABX Reporting Has patient been on IV antibiotics over the past 48 hours?: Yes Assessment/Plan - Problem List (1) Cholecystitis Impression: She is postop day 1 from a cholecystectomy. Pain is still poorly controlled and she is requiring IV morphine. She is tolerating a clear liquid diet. We will keep her hospitalized 1 more night for pain control. Her LFTs are improving. We will keep her on IV ciprofloxacin and Flagyl IV while she is hospitalized. We will advance her diet to full liquid diet. We will continue the morphine IV as needed and we will give her scheduled Toradol today. We will also increase her oral oxycodone dose. We will encourage her to get out of bed and increase activity as tolerated. Discontinue Betancourt catheter today. Spirometry use. We will ask general surgery to evaluate the drainage from the laparoscopic incision on the left side of her abdomen. Continue with dressing changes as needed for the time being. (2) Atrial fibrillation Impression: Remains rate controlled. We are continuing her on metoprolol. General surgery is recommending holding anticoagulation until tomorrow. Qualifiers: Atrial fibrillation type: paroxysmal Qualified Code(s): I48.0 - Paroxysmal atrial fibrillation (3) History of coronary artery disease Impression: Stable. We are continuing her home medications. (4) Acute kidney injury Impression: Has resolved and her renal function has remained stable. We will continue to monitor during this hospitalization.
[2019-12-28] MEDS: SENNA 8.6 MG TABLET PO SCH (16:25)
[2019-12-28] MEDS: ACETAMINOPHEN 325 MG TABLET PO PRN (17:37)
[2019-12-28] MEDS: SODIUM CHLORIDE FLUSH 0.9% 10 ML SYRINGE IVP SCH ×2 (17:38→23:49)
[2019-12-29] MEDS: metroNIDAZOLE 500 MG/100 ML 500 MG/100 ML BAG IV SCH ×2 (00:40→09:52)
[2019-12-29] MEDS ORDERED: D5NS W/20 MEQ KCL 1,000 ML IV STA (00:53)
[2019-12-29] MEDS: ACETAMINOPHEN 325 MG TABLET PO PRN ×4 (01:21→18:51)
[2019-12-29] MEDS: CIPROFLOXACIN 400 MG/200 ML 400 MG/200 ML BAG IV SCH (01:49)
[2019-12-29] MEDS: oxyCODONE 5 MG TABLET PO PRN ×4 (02:36→20:38)
[2019-12-29] MEDS: SODIUM CHLORIDE FLUSH 0.9% 10 ML SYRINGE IVP PRN (03:03)
[2019-12-29 05:22] LABS: BASOPHILS % (AUTO) 0.2 %; EOSINOPHILS # (AUTO) 0.2 10^3/uL (0.0-0.7); EOSINOPHILS % (AUTO) 2.2 %; HGB - HEMOGLOBIN 8.8 g/dL (12.0-16.0); LYMPHOCYTES # (AUTO) 1.2 10^3/uL (1.5-3.5); LYMPHOCYTES % (AUTO) 12.8 %; MEAN CORPUSCULAR HGB CONC 33.2 g/dL (32.0-36.0); MEAN CORPUSCULAR VOLUME 102.3 fL (81.0-99.0); MEAN PLATELET VOLUME 11.3 fL (7.9-10.8); MONOCYTES # (AUTO) 0.8 10^3/uL (0.0-1.0); MONOCYTES % (AUTO) 8.6 %; NEUTROPHILS % (AUTO) 74.8 %; PLT - PLATELET COUNT 141 10^3/uL (130-450); RED BLOOD COUNT 2.59 10^6/uL (4.20-5.40); RED CELL DISTRIBUTION WIDTH 14.6 % (12.0-15.0); WHITE BLOOD COUNT 9.4 x10^3/uL (4.8-10.8)
[2019-12-29 05:36] LABS: ALBUMIN 2.7 g/dL (3.2-5.5); BILIRUBIN,TOTAL 1.7 mg/dL (0.2-1.0); CREATININE 0.9 mg/dL (0.4-1.0); TOTAL PROTEIN 5.3 g/dL (6.7-8.2)
[2019-12-29] MEDS: PANTOPRAZOLE 40 MG VIAL IVP SCH (06:02)
[2019-12-29] MEDS: MORPHINE 2 MG/ML CARPUJECT IVP PRN (06:49)
[2019-12-29] MEDS: ONDANSETRON 4 MG/2 ML VIAL IVP PRN (09:30)
[2019-12-29] MEDS: METOPROLOL SUCCINATE 25 MG TABLET PO SCH ×2 (09:34→09:35)
[2019-12-29] MEDS: DOCUSATE SODIUM 250 MG CAPSULE PO SCH (09:34)
[2019-12-29] MEDS: SENNA 8.6 MG TABLET PO SCH (09:34)
[2019-12-29] MEDS: polyethylene glycoL 3350 17 GM PACKET PO SCH (09:55)
[2019-12-29] MEDS: SODIUM CHLORIDE FLUSH 0.9% 10 ML SYRINGE IVP SCH ×2 (09:55→16:34)
[2019-12-29] MEDS: TAMSULOSIN 0.4 MG CAPSULE PO SCH (11:36)
--- NOTE | 2019-12-29 13:51 | PROVIDER PROGRESS NOTE ---
Progress Note Subjective Postoperative day 1/2 following laparoscopic cholecystectomy, see details of operative procedure below. Oliguric with no IV access. Placed for by me for a left EXTERNAL jugular peripheral intravenous line. No nausea, no vomiting. Pain improved. Pre-Op Diagnosis: Cholecystitis, biliary colic, cholelithiasis, hyperbilirubinemia Procedure Performed: 1. Diagnostic laparoscopy 2. Decompression of laparoscopic gastric band reservoir 3. Laparoscopic cholecystectomy 4. Umbilical hernia repair, primary open Post Op Diagnosis: Same, early gangrenous cholecystitis, critical view of safety obtained. Findings: 1. Densely adhered tethered gallbladder significantly dilated requiring decompression 2. Early gangrenous cholecystitis with careful retention of all stones which were removed en bloc with the gallbladder 3. Critical view of safety obtained 2 and only 2 structures going into the gallbladder 4. Laparoscopic gastric band port identified and decompressed for 3 cc Objective Afebrile hemodynamically acceptable General Appearance: positive: No acute distress Eyes Bilateral: positive: Normal inspection ENT: positive: ENT inspection nml Neck: positive: Nml inspection Respiratory: positive: Chest non-tender, No respiratory distress, Breath sounds nml. negative: Wheezes, Rales, Rhonchi Cardiovascular: positive: Regular rate & rhythm Abdomen: positive: No distention, Other. negative: Guarding, Rebound Extremities: positive: Non-tender, Full ROM, Nml appearance Neurologic/Psychiatric: positive: Oriented x3, CN's nml (2-12) Abdominal specifics: Left lateral access trocar used for the liver retractor in the subcostal space with some bleeding for which multiple simple sutures of nylon were performed of 4 oh achieving hemostasis. This was performed sterilely without any complication. All trocar sites clean dry and intact. Other than above listed trocar which was addressed by suture ligature, all simply with jc intact, no induration, no erythema, no concerns for herniation. Impression/Plan Postoperative day #1/2, oliguric placed for intravenous catheter by myself and started on IV fluids. Awaiting resumption of bowel function. Bilirubin as anticipated continues to trend downward in this patient with acute cholecystitis and early gangrenous changes. (1) GI - IVF, bowel regimen, advance diet as tolerated. GI ppx. Anticipate ileus. Opiate sparring analgesia. Leave gastric band decompressed. (2) SURGERY - will need outpatient follow-up for staple removal. We will consider resumption of anticoagulation on postoperative day 2 versus 3. Leave gastric band decompressed. She has had neither upper nor lower endoscopy and will need this in the near future as well. (3) Renal/Lytes - continue IVF. Renal indices within normal limits. Betancourt replaced after IV fluid resumed for oliguria. Trend inputs and outputs strictly. (4) Respiratory - O2 as necessary. Continue IS. (5) Heme - Will continue with DVT ppx. H/H stable. (6) Cardiovascular - HD acceptable. (7) Neuro - Opiate sparring analgesia. Antispasmodics with Robaxin. Toradol. Neuropathic agents. (8) Immune/Infectious Disease - continue antibiotics given presentation with acute cholecystitis and early gangrenous changes until discharge. (9) DISPOSITION - discharged with next 24 to 48 hours.
[2019-12-29] MEDS ORDERED: polyethylene glycoL 3350 17 GM PACKET PO ONE (15:00)
--- NOTE | 2019-12-29 16:19 | PROVIDER PROGRESS NOTE ---
Subjective - Prog Note Date Prog Note Date: 12/29/19 - Subjective Subjective: Reports her pain has improved but still persists especially when she takes a deep inspiration or coughs. She feels better overall but she is concerned about going home given she has not had a bowel movement and is not passing gas today. She was able to ambulate a little bit in her room. Current Medications - Current Medications Current Medications: Active Medications Acetaminophen (Tylenol) 650 mg PO Q4HR PRN PRN Reason: Pain 1 to 4 Last Admin: 12/29/19 14:31 Dose: 650 mg Documented by: Docusate Sodium (Colace 250mg Capsule) 250 - 500 mg PO DAILY [facility] Last Admin: 12/29/19 09:34 Dose: 250 mg Documented by: Metoprolol Succinate (Toprol Xl) 25 mg PO DAILY [facility] Last Admin: 12/29/19 09:35 Dose: Not Given Documented by: Multi-Ingredient Ointment (Zinc Oxide) 1 applic TOP PRN PRN PRN Reason: Skin Care Last Admin: 12/26/19 23:59 Dose: 1 applic Documented by: Ondansetron HCl (Zofran Inj) 4 mg IVP Q4HR PRN PRN Reason: Nausea / Vomiting Last Admin: 12/29/19 09:30 Dose: 4 mg Documented by: Oxycodone HCl (Roxicodone) 7.5 mg PO Q4HR PRN PRN Reason: Pain 5 to 7 Last Admin: 12/29/19 09:33 Dose: 7.5 mg Documented by: Pantoprazole Sodium (Protonix) 40 mg IVP QDAC [facility] Last Admin: 12/29/19 06:02 Dose: 40 mg Documented by: Polyethylene Glycol (Miralax) 17 gm PO DAILY [facility] Last Admin: 12/29/19 09:55 Dose: Not Given Documented by: Prochlorperazine Edisylate (Compazine Inj) 10 mg IVP Q6HR PRN PRN Reason: Nausea / Vomiting Senna (Senokot) 8.6 mg PO DAILY [facility] Last Admin: 12/29/19 09:34 Dose: 8.6 mg Documented by: Sodium Chloride (Normal Saline Flush 0.9%) 10 ml IVP PRN PRN PRN Reason: NEEDED PER PROVIDER ORDERS Last Admin: 12/29/19 03:03 Dose: 10 ml Documented by: Sodium Chloride (Normal Saline Flush 0.9%) 10 ml IVP 0100,0900,1700 [facility] Last Admin: 12/29/19 09:55 Dose: 10 ml Documented by: Tamsulosin HCl (Flomax) 0.4 mg PO DAILY [facility] Last Admin: 12/29/19 11:36 Dose: 0.4 mg Documented by: Albuterol Sulfate [Albuterol Sulfate Hfa] 2 puffs INH Q4H PRN 12/25/19 Apixaban [Eliquis] 5 mg PO BID 12/25/19 Metoprolol Succinate [Toprol Xl] 25 mg PO DAILY 12/25/19 Objective - Vital Signs/Intake & Output Reviewed Vital Signs: Yes Vital Signs: Vital Signs x48h Temp Pulse Pulse Resp BP Pulse Ox 12/29/19 16:08 37.0 C 84 18 119/67 98 12/29/19 13:00 37.1 C 87 18 117/64 98 12/29/19 09:00 36.8 C 91 16 99/70 97 Intake & Output: Intake & Output 12/26/19 12/27/19 12/28/19 12/29/19 23:59 23:59 23:59 23:59 Intake Total 2760.416 2186.386 2153.056 1450 Output Total 809 626 1588 Balance 2760.416 6361.628 9412.056 -1800 - Objective General Appearance: positive: No acute distress, Alert Eyes Bilateral: positive: Normal inspection, Conjunctivae nml ENT: positive: ENT inspection nml Neck: positive: Nml inspection Respiratory: positive: No respiratory distress. negative: Wheezes, Rales Cardiovascular: positive: Irregularly irregular. negative: Tachycardia, Bradycardia, Systolic murmur Abdomen: positive: Nml bowel sounds, Tenderness (Tenderness in the right upper quadrant.), Other (The laparoscopic incision sites appear clean and intact. No drainage noted.). negative: Guarding, Rebound Skin: positive: Warm, Dry Extremities: positive: Full ROM, Pedal edema (Trace edema in the bilateral lower extremities.) Neurologic/Psychiatric: positive: Oriented x3. negative: Disoriented to person, Disoriented to place, Disoriented to time - Lab Results Fish Bones: 12/29/19 05:10 12/29/19 05:10 Other Labs: Lab Results x24hrs 10/03/20 10/03/20 Range/Units 05:10 05:10 WBC 9.4 (4.8-10.8) x10^3/uL RBC 2.59 L (4.20-5.40) 10^6/uL Hgb 8.8 L (12.0-16.0) g/dL Hct 26.5 L (37.0-47.0) % MCV 102.3 H (81.0-99.0) fL MCH 34.0 H (27.0-31.0) pg MCHC 33.2 (32.0-36.0) g/dL RDW 14.6 (12.0-15.0) % Plt Count 141 (130-450) 10^3/uL MPV 11.3 H (7.9-10.8) fL Neut # (Auto) 7.0 H (1.5-6.6) 10^3/uL Lymph # (Auto) 1.2 L (1.5-3.5) 10^3/uL [place] # (Auto) 0.8 (0.0-1.0) 10^3/uL Eos # (Auto) 0.2 (0.0-0.7) 10^3/uL Baso # (Auto) 0.0 (0.0-0.1) 10^3/uL Absolute Nucleated RBC 0.00 x10^3/uL Nucleated RBC % 0.0 /100WBC Sodium 134 L (135-145) mmol/L Potassium 3.5 (3.5-5.0) mmol/L Chloride 107 (101-111) mmol/L Carbon Dioxide 21 (21-32) mmol/L Anion Gap 6.0 (6-13) BUN 15 (6-20) mg/dL Creatinine 0.9 (0.4-1.0) mg/dL Estimated GFR (MDRD) 60 L (>89) Glucose 138 H (70-100) mg/dL Calcium 8.0 L (8.5-10.3) mg/dL Total Bilirubin 1.7 H (0.2-1.0) mg/dL AST 34 (10-42) IU/L ALT 43 (10-60) IU/L Alkaline Phosphatase 26 L (42-121) IU/L Total Protein 5.3 L (6.7-8.2) g/dL Albumin 2.7 L (3.2-5.5) g/dL Globulin 2.6 (2.1-4.2) g/dL Albumin/Globulin Ratio 1.0 (1.0-2.2) ABX Reporting Has patient been on IV antibiotics over the past 48 hours?: Yes Assessment/Plan - Problem List (1) Cholecystitis Impression: She is postop day 2 for laparoscopic cholecystectomy. Her pain is better controlled but she is not had a bowel movement and is not passing gas. She is tolerating a clear liquid diet although she is not eating very much. We will k eep her hospitalized overnight until she is able to pass gas. We will discontinue antibiotics. Continue to clear liquid diet as tolerated. Oral narcotics for pain control in preparation for discharge tomorrow. (2) Ileus following gastrointestinal surgery Impression: She has postop ileus. She is not passing gas and not had a bowel movement. We will continue her on a clear liquid diet. We will give her a dose of MiraLAX today and continue on senna. (3) Atrial fibrillation Impression: She remains rate controlled. We will continue metoprolol and resume Eliquis tomorrow. Qualifiers: Atrial fibrillation type: paroxysmal Qualified Code(s): I48.0 - Paroxysmal atrial fibrillation (4) History of coronary artery disease Impression: Stable. Continue home beta-obed and resume anticoagulation tomorrow. (5) Acute kidney injury Impression: This has resolved.
[2019-12-29] MEDS: PHENAZOPYRIDINE 100 MG TABLET PO SCH (21:51)
[2019-12-29 22:43] LABS: BILIRUBIN,URINE NEGATIVE (NEGATIVE); GLUCOSE, URINE (UA) NEGATIVE (NEGATIVE); KETONES,URINE (UA) NEGATIVE (NEGATIVE); LEUKOCYTE ESTERASE, URINE SMALL (NEGATIVE); NITRITE,URINE NEGATIVE (NEGATIVE); OCCULT BLOOD,URINE TRACE-INTA (NEGATIVE); PROTEIN,URINE NEGATIVE (NEGATIVE); UROBILINOGEN,URINE 0.2 (NORMAL) E.U./dL (NORMAL)
[2019-12-29 22:44] LABS: CLARITY,URINE CLEAR (CLEAR)
[2019-12-29 22:49] LABS: BACTERIA,URINE Rare /HPF (None Seen); RBC,URINE 0-5 /HPF (0-5); SQUAMOUS EPITHELIAL CELL,UR MOD Squamous (<= Few)
[2019-12-30] MEDS: SODIUM CHLORIDE FLUSH 0.9% 10 ML SYRINGE IVP SCH ×4 (00:29→23:47)
[2019-12-30] MEDS: ACETAMINOPHEN 325 MG TABLET PO PRN ×4 (00:29→14:39)
[2019-12-30] MEDS: oxyCODONE 5 MG TABLET PO PRN ×5 (00:37→23:46)
[2019-12-30] MEDS: PHENAZOPYRIDINE 100 MG TABLET PO SCH ×3 (06:00→21:18)
[2019-12-30] MEDS: PANTOPRAZOLE 40 MG VIAL IVP SCH (06:00)
[2019-12-30 08:28] LABS: ALBUMIN 2.7 g/dL (3.2-5.5); BILIRUBIN,TOTAL 1.4 mg/dL (0.2-1.0); CALCIUM 8.1 mg/dL (8.5-10.3); CREATININE 0.9 mg/dL (0.4-1.0); TOTAL PROTEIN 5.5 g/dL (6.7-8.2)
[2019-12-30 08:34] LABS: BASOPHILS % (AUTO) 0.4 %; EOSINOPHILS # (AUTO) 0.2 10^3/uL (0.0-0.7); EOSINOPHILS % (AUTO) 1.8 %; HGB - HEMOGLOBIN 8.9 g/dL (12.0-16.0); LYMPHOCYTES # (AUTO) 1.1 10^3/uL (1.5-3.5); LYMPHOCYTES % (AUTO) 12.9 %; MEAN CORPUSCULAR HEMOGLOBIN 33.8 pg (27.0-31.0); MEAN CORPUSCULAR HGB CONC 33.2 g/dL (32.0-36.0); MEAN CORPUSCULAR VOLUME 101.9 fL (81.0-99.0); MEAN PLATELET VOLUME 11.8 fL (7.9-10.8); MONOCYTES # (AUTO) 0.8 10^3/uL (0.0-1.0); NEUTROPHILS # (AUTO) 6.3 10^3/uL (1.5-6.6); NEUTROPHILS % (AUTO) 73.9 %; PLT - PLATELET COUNT 163 10^3/uL (130-450); RED BLOOD COUNT 2.63 10^6/uL (4.20-5.40); RED CELL DISTRIBUTION WIDTH 14.6 % (12.0-15.0); WHITE BLOOD COUNT 8.5 x10^3/uL (4.8-10.8)
[2019-12-30] MEDS ORDERED: POTASSIUM CHLORIDE 20 MEQ TABLET PO ONE (08:56)
[2019-12-30] MEDS: polyethylene glycoL 3350 17 GM PACKET PO SCH (09:10)
[2019-12-30] MEDS: DOCUSATE SODIUM 250 MG CAPSULE PO SCH (09:10)
[2019-12-30] MEDS: SENNA 8.6 MG TABLET PO SCH (09:10)
[2019-12-30] MEDS: TAMSULOSIN 0.4 MG CAPSULE PO SCH (09:10)
[2019-12-30] MEDS: APIXABAN 5 MG TABLET PO SCH ×2 (09:10→20:25)
[2019-12-30] MEDS: METOPROLOL SUCCINATE 25 MG TABLET PO SCH (09:11)
--- NOTE | 2019-12-30 10:24 | XRAY Report ---
PROCEDURE: Abdomen 1 View X-Ray INDICATIONS: Post cholecystectomy. Constipation. Pain. TECHNIQUE: 1 view of the abdomen were acquired. COMPARISON: None. FINDINGS: Suboptimal evaluation due to body habitus. Surgical changes and devices: None. Bowel: No pneumoperitoneum. The bowel gas pattern is nonspecific. No definite transition point seen . Soft tissues: No masses; visualized solid organ contours appear normal in size. No suspicious abdom inal calcifications. Bones: No suspicious bony abnormalities. IMPRESSION: No specific evidence of bowel obstruction although continued surveillance with abdominal radiographs could be performed if the patient's symptoms do not improve. Reviewed by: Cyril Arias MD on 12/30/2019 10:23 AM PDT Approved by: Cyril Arias MD on 12/30/2019 10:23 AM PDT Station ID: [id number]
--- NOTE | 2019-12-30 13:46 | Ultrasound Report ---
PROCEDURE: Duplex Ext Veins Bilateral INDICATIONS: Bilateral lower extremity edema TECHNIQUE: Real-time imaging, as well as color and pulse Doppler interrogation, were performed of the deep veins of both legs from the inguinal ligament to the popliteal fossa. COMPARISON: None FINDINGS: The left profunda vein in the thigh could not be definitively identified. The left femoral vein, popliteal vein, posterior tibial vein, and peroneal vein are normally compressible, and free o f intraluminal thrombus. The deep veins of the right lower cavity are normally compressible and free of intraluminal thrombus. Color and pulse Doppler demonstrate normal phasic intravascular flow. The re is normal augmentation response to distal compression maneuver. IMPRESSION: No evidence of deep venous thrombosis in the left lower or right lower extremity. The left profunda v ein in the thigh could not be definitively identified. Reviewed by: Ronan Sky on 12/30/2019 12:44 PM [facility] Approved by: Rnoan Sky on 12/30/2019 12:44 PM [facility] Station ID: [id number]
--- NOTE | 2019-12-30 14:08 | Discharge Plan ---
Discharge Plan Problem Reviewed?: Yes Disposition: Home Health Service Condition: Stable Prescriptions: HYDROcodone/ACET 7.5/325 [[place] 7.5/325] 1 tab PO Q4HR PRN #25 tablet PRN Reason: Pain polyethylene glycoL 3350 [Miralax] 17 gm PO DAILY #21 packet Senna [Senokot] 8.6 mg PO DAILY #30 tablet Diet: Soft Activity Restrictions: Activity as Tolerated Assistance Devices: [facility] Concerns: You were seen in the hospital because you had an infected gallbladder. You had multiple stones present as well and it is likely that one of them had passed. We did an MRI of your abdomen which showed no obstruction from these gallstones. You ended up having your gallbladder removed by general surgery and you are treated with IV antibiotics. You are now stable for discharge home. Plan of Treatment: Please take the MiraLAX and Senokot on a daily basis given the constipation which is not uncommon after bowel surgery and being on narcotics. Please take the oxycodone as needed. There were no other changes made to your medications. You may continue the liquid/soft diet and advance as tolerated. A high-fiber diet is recommended. Care Goals: Please seek medical attention if you develop any worsening abdominal pain, vomiting, fevers, chills. Assessment: The patient expressed understanding of the treatment plan. Additional Instructions or Follow Up instructions: Please follow-up with general surgery in 1 week for staple removal. Follow-Up Care: Home Health - PT, Home Health - OT No Smoking: If you smoke, Please STOP! Call for help. Follow-up with: Perlita Rodgers MD [Primary Care Provider] -
--- NOTE | 2019-12-30 15:38 | PROVIDER PROGRESS NOTE ---
Subjective - Prog Note Date Prog Note Date: 12/30/19 - Subjective Subjective: She notes right lower extremity edema today with some pain and leg. She also states she not had a bowel movement and is not passing gas today although she reports passing gas yesterday evening after taking Flomax. She has been urinating without difficulty after the Betancourt catheter was removed. Current Medications - Current Medications Current Medications: Active Medications Acetaminophen (Tylenol) 650 mg PO Q4HR PRN PRN Reason: Pain 1 to 4 Last Admin: 12/30/19 14:39 Dose: 650 mg Documented by: Apixaban (Eliquis) 5 mg PO BID [facility] Last Admin: 12/30/19 09:10 Dose: 5 mg Documented by: Docusate Sodium (Colace 250mg Capsule) 250 - 500 mg PO DAILY [facility] Last Admin: 12/30/19 09:10 Dose: 250 mg Documented by: Metoprolol Succinate (Toprol Xl) 25 mg PO DAILY [facility] Last Admin: 12/30/19 09:11 Dose: Not Given Documented by: Multi-Ingredient Ointment (Zinc Oxide) 1 applic TOP PRN PRN PRN Reason: Skin Care Last Admin: 12/26/19 23:59 Dose: 1 applic Documented by: Ondansetron HCl (Zofran Inj) 4 mg IVP Q4HR PRN PRN Reason: Nausea / Vomiting Last Admin: 12/29/19 09:30 Dose: 4 mg Documented by: Oxycodone HCl (Roxicodone) 7.5 mg PO Q4HR PRN PRN Reason: Pain 5 to 7 Last Admin: 12/30/19 10:29 Dose: 7.5 mg Documented by: Pantoprazole Sodium (Protonix) 40 mg IVP QDAC [facility] Last Admin: 12/30/19 06:00 Dose: 40 mg Documented by: Phenazopyridine HCl (Pyridium) 100 mg PO TID [facility] Last Admin: 12/30/19 14:35 Dose: Not Given Documented by: Polyethylene Glycol (Miralax) 17 gm PO DAILY [facility] Last Admin: 12/30/19 09:10 Dose: 17 gm Documented by: Prochlorperazine Edisylate (Compazine Inj) 10 mg IVP Q6HR PRN PRN Reason: Nausea / Vomiting Senna (Senokot) 8.6 mg PO DAILY [facility] Last Admin: 12/30/19 09:10 Dose: 8.6 mg Documented by: Sodium Chloride (Normal Saline Flush 0.9%) 10 ml IVP PRN PRN PRN Reason: NEEDED PER PROVIDER ORDERS Last Admin: 12/29/19 03:03 Dose: 10 ml Documented by: Sodium Chloride (Normal Saline Flush 0.9%) 10 ml IVP 0100,0900,1700 [facility] Last Admin: 12/30/19 09:11 Dose: 10 ml Documented by: Tamsulosin HCl (Flomax) 0.4 mg PO DAILY [facility] Last Admin: 12/30/19 09:10 Dose: 0.4 mg Documented by: Albuterol Sulfate [Albuterol Sulfate Hfa] 2 puffs INH Q4H PRN 12/25/19 Apixaban [Eliquis] 5 mg PO BID 12/25/19 Metoprolol Succinate [Toprol Xl] 25 mg PO DAILY 12/25/19 Objective - Vital Signs/Intake & Output Reviewed Vital Signs: Yes Vital Signs: Vital Signs x48h Temp Pulse Pulse Resp BP BP Pulse Ox 12/30/19 13:26 36.8 C 87 18 137/62 H 98 12/30/19 10:25 104 H 137/65 H 12/30/19 08:11 36.6 C 92 16 110/80 97 Pulse Ox 12/30/19 13:26 12/30/19 10:25 97 12/30/19 08:11 Intake & Output: Intake & Output 12/27/19 12/28/19 12/29/19 12/30/19 23:59 23:59 23:59 23:59 Intake Total 2186.386 2153.056 2450 480 Output Total 708 243 9675 1150 Balance 4363.329 9947.056 -900 -670 - Objective General Appearance: positive: No acute distress, Alert Eyes Bilateral: positive: Normal inspection, Conjunctivae nml ENT: positive: ENT inspection nml Neck: positive: Nml inspection Respiratory: positive: No respiratory distress. negative: Wheezes, Rales Cardiovascular: positive: Irregularly irregular. negative: Tachycardia, Bradycardia, Systolic murmur Abdomen: positive: Tenderness (She remains tender in the right upper quadrant.), Abnml bowel sounds (Bowel sounds are hypoactive but present.). negative: Non- tender, Guarding, Rebound Skin: positive: Warm, Dry Extremities: positive: Pedal edema (Trace pitting edema in the bilateral lower extremities.) Neurologic/Psychiatric: positive: Oriented x3 - Lab Results Fish Bones: 12/30/19 07:46 12/30/19 07:46 Other Labs: Lab Results x24hrs 12/30/19 12/30/19 12/30/19 Range/Units 11:16 07:46 07:46 WBC 8.5 (4.8-10.8) x10^3/uL RBC 2.63 L (4.20-5.40) 10^6/uL Hgb 8.9 L (12.0-16.0) g/dL Hct 26.8 L (37.0-47.0) % MCV 101.9 H (81.0-99.0) fL MCH 33.8 H (27.0-31.0) pg MCHC 33.2 (32.0-36.0) g/dL RDW 14.6 (12.0-15.0) % Plt Count 163 (130-450) 10^3/uL MPV 11.8 H (7.9-10.8) fL Neut # (Auto) 6.3 (1.5-6.6) 10^3/uL Lymph # (Auto) 1.1 L (1.5-3.5) 10^3/uL [place] # (Auto) 0.8 (0.0-1.0) 10^3/uL Eos # (Auto) 0.2 (0.0-0.7) 10^3/uL Baso # (Auto) 0.0 (0.0-0.1) 10^3/uL Absolute Nucleated RBC 0.00 x10^3/uL Nucleated RBC % 0.0 /100WBC Sodium 139 (135-145) mmol/L Potassium 3.4 L (3.5-5.0) mmol/L Chloride 110 (101-111) mmol/L Carbon Dioxide 21 (21-32) mmol/L Anion Gap 8.0 (6-13) BUN 11 (6-20) mg/dL Creatinine 0.9 (0.4-1.0) mg/dL Estimated GFR (MDRD) 60 L (>89) Glucose 119 H (70-100) mg/dL POC Whole Bld Glucose 133 H (70 - 100) mg/dL Calcium 8.1 L (8.5-10.3) mg/dL Total Bilirubin 1.4 H (0.2-1.0) mg/dL AST 23 (10-42) IU/L ALT 35 (10-60) IU/L Alkaline Phosphatase 30 L (42-121) IU/L Total Protein 5.5 L (6.7-8.2) g/dL Albumin 2.7 L (3.2-5.5) g/dL Globulin 2.8 (2.1-4.2) g/dL Albumin/Globulin Ratio 1.0 (1.0-2.2) Urine Color Urine Clarity (CLEAR) Urine pH (5.0-7.5) PH Ur Specific [place] (1.002-1.030) Urine Protein (NEGATIVE) mg/dL Urine Glucose (UA) (NEGATIVE) mg/dL Urine Ketones (NEGATIVE) mg/dL Urine Occult Blood (NEGATIVE) Urine Nitrite (NEGATIVE) Urine Bilirubin (NEGATIVE) Urine Urobilinogen (NORMAL) E.U./dL Ur Leukocyte Esterase (NEGATIVE) Urine RBC (0-5) /HPF Urine WBC (0-5) /HPF Ur Squamous Epith Cells (<= Few) Urine Bacteria (None Seen) /HPF Urine Culture Comments 12/29/19 Range/Units 22:35 WBC (4.8-10.8) x10^3/uL RBC (4.20-5.40) 10^6/uL Hgb (12.0-16.0) g/dL Hct (37.0-47.0) % MCV (81.0-99.0) fL MCH (27.0-31.0) pg MCHC (32.0-36.0) g/dL RDW (12.0-15.0) % Plt Count (130-450) 10^3/uL MPV (7.9-10.8) fL Neut # (Auto) (1.5-6.6) 10^3/uL Lymph # (Auto) (1.5-3.5) 10^3/uL [place] # (Auto) (0.0-1.0) 10^3/uL Eos # (Auto) (0.0-0.7) 10^3/uL Baso # (Auto) (0.0-0.1) 10^3/uL Absolute Nucleated RBC x10^3/uL Nucleated RBC % /100WBC Sodium (135-145) mmol/L Potassium (3.5-5.0) mmol/L Chloride (101-111) mmol/L Carbon Dioxide (21-32) mmol/L Anion Gap (6-13) BUN (6-20) mg/dL Creatinine (0.4-1.0) mg/dL Estimated GFR (MDRD) (>89) Glucose (70-100) mg/dL POC Whole Bld Glucose (70 - 100) mg/dL Calcium (8.5-10.3) mg/dL Total Bilirubin (0.2-1.0) mg/dL AST (10-42) IU/L ALT (10-60) IU/L Alkaline Phosphatase (42-121) IU/L Total Protein (6.7-8.2) g/dL Albumin (3.2-5.5) g/dL Globulin (2.1-4.2) g/dL Albumin/Globulin Ratio (1.0-2.2) Urine Color YELLOW Urine Clarity CLEAR (CLEAR) Urine pH 6.0 (5.0-7.5) PH Ur Specific [place] <=1.005 (1.002-1.030) Urine Protein NEGATIVE (NEGATIVE) mg/dL Urine Glucose (UA) NEGATIVE (NEGATIVE) mg/dL Urine Ketones NEGATIVE (NEGATIVE) mg/dL Urine Occult Blood TRACE-INTA (NEGATIVE) Urine Nitrite NEGATIVE (NEGATIVE) Urine Bilirubin NEGATIVE (NEGATIVE) Urine Urobilinogen 0.2 (NORMAL) (NORMAL) E.U./dL Ur Leukocyte Esterase SMALL H (NEGATIVE) Urine RBC 0-5 (0-5) /HPF Urine WBC 4-5 (0-5) /HPF Ur Squamous Epith Cells MOD Squamous H (<= Few) Urine Bacteria Rare (None Seen) /HPF Urine Culture Comments NOT INDICATED ABX Reporting Has patient been on IV antibiotics over the past 48 hours?: No Assessment/Plan - Problem List (1) Cholecystitis Impression: She is postop day 3 from a laparoscopic cholecystectomy. She still has pain this is controlled with oral oxycodone. She reports she is unable to pass gas today and still has not had a bowel movement despite being on a bowel regimen. She is tolerating a clear liquid diet. Abdominal x-ray was obtained today which showed a nonobstructive gas pattern and was unremarkable. Patient is concerned about going home at this time. We will continue pain control oxycodone. We will continue with a bowel regimen and consider an enema. Antibiotics have been discontinued. (2) Ileus following gastrointestinal surgery Impression: She has postop ileus although she reports passing gas yesterday but is unable to do so today. Abdominal x-ray showed a nonobstructive pattern. We will continue her on a bowel regimen and consider an enema. (3) Bilateral lower extremity edema Impression: She has minimal edema in her bilateral lower extremities but she reports this is new in her right leg and it is somewhat painful. We will obtain duplex complete bilateral lower extremities to evaluate for DVT. If this is negative then suspect this edema is likely from the amount of IV fluids that she received during this hospitalization. She has no dyspnea or hypoxia and we will not diurese her if this is the case as she will mobilize the fluid she becomes more ambulatory. (4) Atrial fibrillation Impression: She remains rate controlled. Her metoprolol will be continued and her Eliquis has been resumed today. Qualifiers: Atrial fibrillation type: paroxysmal Qualified Code(s): I48.0 - Paroxysmal atrial fibrillation (5) History of coronary artery disease Impression: Stable. Continue home medications. (6) Acute kidney injury Impression: This has resolved.
[2019-12-31] MEDS: oxyCODONE 5 MG TABLET PO PRN (04:14)
[2019-12-31] MEDS: PHENAZOPYRIDINE 100 MG TABLET PO SCH (06:27)
[2019-12-31] MEDS: PANTOPRAZOLE 40 MG VIAL IVP SCH (06:29)
[2019-12-31] MEDS ORDERED: oxyCODONE 5 MG TABLET PO PRN (07:31)
--- NOTE | 2019-12-31 07:32 | DISCHARGE SUMMARY ---
"Discharge Summary Admit Date: 12/25/19 Discharge Date: 12/31/19 Discharging Provider: Heladio Palumbo Primary Care Provider: Perlita Rodgers Code Status: Attempt Resuscitation Condition at Discharge: Stable Discharge Disposition: [facility] - DIAGNOSES Admission Diagnoses: Cholecystitis Atrial fibrillation Hypertension History of coronary artery disease Discharge Diagnoses with Status of Each Condition: Cholecystitis - resolved. Ileus following gastrointestinal surgery - improved. Bilateral lower extremity edema - stable. Atrial fibrillation - stable. History of coronary artery disease - stable. Acute kidney injury - resolved. - HPI History of Present Illness: H&P per Dr. Rodarte: Patient is an 84-year-old female who presented to the ED with complaint of right upper quadrant abdominal pain. This started yesterday around noon after she had some tuna salad. The pain has been progressively worse since then so she came to the emergency room. Currently she rates the pain 7 out of 10. She describes occasional cramping as well. She has been nauseous but no vomiting she has been experiencing dry heaves. She denies fever or chills. In the ED work-up included a Ultrasound of the abdomen which showed gallbladder wall thickening at 5 mm with pericholecystic fluid.. There was also nonspecific pancreatic ductal dilatation. The patient also had a WBC of 14.3. As a result she was presented for admission for further evaluation and treatment. The patient has a history of atrial fibrillation for which she is on Eliquis. She last took Eliquis on December 24, 2019 in the morning. She also has history of coronary artery disease status post a 4 vessel bypass in 2009. At bedside she denied chest pain, dyspnea, fever or chills. - CONSULTS | PROCEDURES Consultations: General Surgery Procedures: MRCP on December 24 showed findings of cholelithiasis and acute cholecystitis. Mild intra-and extrahepatic biliary dilatation without visible obstructing stone. This may be secondary to recently passed stone. Mild pancreatic ductal dilatation. This is diffuse and may be evidence of recent edema in the ampulla. Laparoscopic band at the GE junction in satisfactory position. Prior median sternotomy. She underwent a diagnostic laparoscopy,and decompression of laparoscopic gastric band reservoir, laparoscopic cholecystectomy, and umbilical hernia repair on December 26. She is found to have early gangrenous cholecystitis. - HOSPITAL COURSE Hospital Course: She was admitted to the floor for acute cholecystitis and started on ciprofloxacin and Flagyl IV. She was also started on Lovenox full dose for her atrial fibrillation and her Eliquis was held. Her LFTs were elevated and there was concern for possible choledocholithiasis and so she underwent MRCP which confirmed cholecystitis with cholelithiasis but no obvious obstructing stone. It was felt that she likely had gallstone that had recently passed. Her LFTs trended down. She went to the OR on December 26 with general surgery for laparoscopic cholecystectomy and there is evidence of early gangrenous cholecystitis. Her acute kidney injury resolved with IV fluids. She required IV pain medications on postop day 1 and her pain was poorly controlled. She was changed to oral narcotics and did well but her postop course was complicated by postoperative ileus. He was started on a bowel regimen with MiraLAX and senna and she was eventually able to pass gas. She was evaluated by physical therapy recommended home health PT and OT. He was ultimately discharged on postop day 4 on oral hydrocodone and a bowel regimen. She will follow-up with general surgery in 1 week for staple removal. She was continued on her home Eliquis. She did have lower extremity edema postoperatively and a duplex was obtained which was negative for DVT. - ALLERGIES Allergies/Adverse Reactions: Allergies Allergy/AdvReac Type Severity Reaction Status Date / Time amoxicillin Allergy Unknown Verified 12/24/19 19:21 iodine Allergy Hives Verified 12/24/19 19:21 shellfish derived Allergy Hives Verified 12/24/19 19:21 lactose AdvReac Cramps Verified 12/24/19 19:21 - MEDICATIONS Home Medications: Ambulatory Orders Medication Instructions Recorded Confirmed Albuterol Sulfate [Albuterol 2 puffs INH Q4H PRN 12/25/19 12/25/19 Sulfate Hfa] Apixaban [Eliquis] 5 mg PO BID 12/25/19 12/25/19 Metoprolol Succinate [Toprol Xl] 25 mg PO DAILY 12/25/19 12/25/19 HYDROcodone/ACET 7.5/325 [[place] 1 tab PO Q4HR PRN #25 tablet 12/31/19 7.5/325] Senna [Senokot] 8.6 mg PO DAILY #30 tablet 12/31/19 polyethylene glycoL 3350 [Miralax] 17 gm PO DAILY #21 packet 12/31/19 - PHYSICAL EXAM AT DISCHARGE General Appearance: positive: No acute distress, Alert Eyes Bilateral: positive: Normal inspection, Conjunctivae nml ENT: positive: ENT inspection nml Neck: positive: Nml inspection Respiratory: positive: No respiratory distress. negative: Wheezes, Rales Cardiovascular: positive: Irregularly irregular. negative: Tachycardia, Zak cardia, Systolic murmur Abdomen: positive: Nml bowel sounds, No distention, Tenderness (She is tender in the right upper quadrant.), Other (Laparoscopic incision sites are stapled without evidence of bleeding.). negative: Non-tender, Guarding, Rebound Skin: positive: Warm, Dry Extremities: positive: Full ROM, Pedal edema (She has about trace to +1 pitting edema in her bilateral ankles) Neurologic/Psychiatric: positive: Oriented x3. negative: Disoriented to person, Disoriented to place, Disoriented to time Physical Exam Other/Comments: Vital Signs - 24 hr 12/30/19 12/30/19 12/31/19 19:38 23:55 03:04 Temperature 36.7 C 36.8 C 36.6 C Heart Rate [ 64 105 H 91 Brachial] Heart Rate [ Monitoring electrodes] Respiratory 20 18 18 Rate Blood Pressure [Left Brachial artery] Blood Pressure 149/55 H 141/79 H 145/70 H [Right Brachial artery] O2 Saturation 95 98 95 12/31/19 12/31/19 08:49 11:46 Temperature 36.6 C 36.8 C Heart Rate [ 117 H Brachial] Heart Rate [ 113 H Monitoring electrodes] Respiratory 20 22 Rate Blood Pressure 149/65 H [Left Brachial artery] Blood Pressure 137/54 H [Right Brachial artery] O2 Saturation 95 96 Oxygen O2 Source [With Activity] Room air O2 Source Room air - LABS Result Diagrams: 12/30/19 07:46 12/30/19 07:46 - DIAGNOSTIC IMAGING Diagnostic Imaging Results: Final report reviewed - FOLLOW UP Follow Up: She will follow-up with general surgery in 1 week for staple removal. - TIME SPENT Time Spent in Discharge (Minutes): 33"
[2019-12-31] MEDS: ACETAMINOPHEN 325 MG TABLET PO PRN (07:51)
[2019-12-31] MEDS ORDERED: HYDROcod/ACETAM 7.5 MG/325 MG TABLET PO PRN (10:14)
--- NOTE | 2019-12-31 10:24 | PHARMACY PROGRESS NOTE ---
- Monitoring Indication for anticoagulation: Atrial Fibrillation Previous home regime: APIXABAN 5MG BID Potentially interacting medications: NONE Other anticoagulation: None Risk factors for bleed: Recent injury or surgery, Hypertension, Age >65, Hematocrit <30% - Recommendations Dosing: Anticoagulation Monitoring 12/30/19 12/29/19 12/28/19 07:46 05:10 05:00 Hgb 8.9 L 8.8 L 9.0 L Hct 26.8 L 26.5 L 27.3 L 12/27/19 12/26/19 12/25/19 05:22 05:17 05:35 Hgb 10.0 L 9.7 L 10.7 L Hct 30.9 L 30.8 L 34.7 L 12/24/19 19:40 Hgb 12.3 Hct 38.2 Last Dose Given: S&S of bleeding: Pharmacy recommendation: Continue current regime
[2019-12-31] MEDS ORDERED: oxyCODONE 5 MG TABLET PO SCH (10:38)
[2019-12-31] MEDS: APIXABAN 5 MG TABLET PO SCH (10:57)
[2019-12-31] MEDS: DOCUSATE SODIUM 250 MG CAPSULE PO SCH (11:01)
[2019-12-31] MEDS: polyethylene glycoL 3350 17 GM PACKET PO SCH (11:02)
[2019-12-31] MEDS: METOPROLOL SUCCINATE 25 MG TABLET PO SCH (11:02)
[2019-12-31] MEDS: SENNA 8.6 MG TABLET PO SCH (11:03)
[2019-12-31] MEDS: SODIUM CHLORIDE FLUSH 0.9% 10 ML SYRINGE IVP SCH (11:04)
[2019-12-31 11:47] VITALS: BP 137/54
[2019-12-31] MEDS ORDERED: NEOSTIGMINE 1 MG/1 ML 10 ML MDV IVP ONE (11:48)
[2019-12-31] MEDS ORDERED: ONDANSETRON 4 MG/2 ML VIAL IVP ONE (11:48)
[2019-12-31] MEDS ORDERED: LIDOCAINE-MPF 2% 5 ML VIAL IM ONE (11:48)
[2019-12-31] MEDS ORDERED: ROCURONIUM 50 MG/5 ML VIAL IVP ONE (11:48)
[2019-12-31] MEDS ORDERED: GLYCOPYRROLATE 1 MG/5 ML VIAL IVP ONE (11:48)
[2019-12-31] MEDS ORDERED: DEXAMETHASONE 4 MG/ML VIAL IVP ONE (11:48)
[2019-12-31] MEDS ORDERED: ePHEDrine 50 MG/ML VIAL IVP ONE (11:48)
[2019-12-31] MEDS ORDERED: PROPOFOL 200 MG/20 ML VIAL IVP ONE (11:48)
[2019-12-31] MEDS ORDERED: MIDAZOLAM 2 MG/2 ML VIAL IVP ONE (11:48)
[2019-12-31] MEDS ORDERED: PHENYLEPHRINE 10 MG/ML VIAL IV ONE (11:48)
[2019-12-31] MEDS ORDERED: fentaNYL 100 MCG/2 ML VIAL IVP ONE (11:48)
== END 2019-12-31 11:49 | disposition home health service (06) | DRG 418 ==
LOC: ED 18:55 → MS2 12-25 00:53
PROVIDERS: ADMIT Internal Medicine; ATTEND Internal Medicine
PROC: 0FT44ZZ Resection of Gallbladder, Percutaneous Endoscopic Approach (ICD-10-PCS; 2019-12-27)
PROC: 0DW63CZ Revision of Extraluminal Device in Stomach, Percutaneous Approach (ICD-10-PCS; principal; 2019-12-27 09:00)
DX: K80.10 Calculus of gallbladder with chronic cholecystitis without obstruction (principal); I48.91 Unspecified atrial fibrillation; K80.12 Calculus of gallbladder with acute and chronic cholecystitis without obstruction; K91.30 Postprocedural intestinal obstruction, unspecified as to partial versus complete; N17.9 Acute kidney failure, unspecified; I48.0 Paroxysmal atrial fibrillation; K82.A1 Gangrene of gallbladder in cholecystitis; R74.8 Abnormal levels of other serum enzymes; R60.0 Localized edema; Z79.01 Long term (current) use of anticoagulants; Z98.84 Bariatric surgery status; I10 Essential (primary) hypertension; I25.2 Old myocardial infarction; Z95.1 Presence of aortocoronary bypass graft; I25.10 Atherosclerotic heart disease of native coronary artery without angina pectoris; K42.9 Umbilical hernia without obstruction or gangrene
CPT/HCPCS: 36415; 71045; 74018; 74181; 76705; 80053; 81001; 81003; 83690; 84484; 85025; 93005; 93970; 97161; 97535; 99284; 99285; A9270; J1650; J2765; J7120; 87086

== ENCOUNTER 2020-06-20 17:45 | Outpatient (CLI) | payer MEDICARE, MEDICAID | END 2020-06-20 17:46 | disposition critical access hospital (66) | LOC: EMS 17:45 | DX: S50.311A Abrasion of right elbow, initial encounter (principal); S60.512A Abrasion of left hand, initial encounter; W18.30XA Fall on same level, unspecified, initial encounter; Y93.01 Activity, walking, marching and hiking; Y92.009 Unspecified place in unspecified non-institutional (private) residence as the place of occurrence of the external cause | CPT/HCPCS: A0425; A0429 ==

== ENCOUNTER 2020-06-20 17:48 | Emergency (ER) | payer MEDICARE, MEDICAID ==
--- NOTE | 2020-06-20 18:00 | ED Physician Documentation ---
History of Present Illness - Stated complaint Stated Complaint: FALL - Additonal information Additional information: 85-year-old female is brought to the emergency department as a modified trauma via EMS after a ground-level fall this afternoon at her apartment. She was using a walker it got caught and she fell backwards. She did not strike her head to the best of her knowledge and there was no loss of consciousness. She is reporting pain in her left knee as well as a skin tear on her left wrist and elbow. She denies headache neck pain back pain. She otherwise appears well. She is on Eliquis secondary to history of triple bypass CABG. Review of Systems Constitutional: denies: Fever, Chills Eyes: reports: Reviewed and negative Ears: reports: Reviewed and negative Nose: reports: Reviewed and negative Throat: reports: Reviewed and negative Cardiac: reports: Reviewed and negative Respiratory: reports: Reviewed and negative GI: denies: Abdominal Pain : denies: Dysuria, Frequency, Hesitancy Skin: reports: Reviewed and negative Musculoskeletal: reports: Reviewed and negative Neurologic: reports: Reviewed and negative Psychiatric: reports: Reviewed and negative PD PAST MEDICAL HISTORY - Past Medical History Cardiovascular: Hypertension, Coronary artery disease, [place], Atrial fibrillation Respiratory: Asthma Neuro: None Endocrine/Autoimmune: None GI: None TURF KEEPER: None : Kidney stones HEENT: None Psych: Anxiety Musculoskeletal: Osteoarthritis, Other Derm: Other - Past Surgical History Past Surgical History: Yes General: Other /TURF KEEPER: Hysterectomy Cardiovascular: CABG HEENT: Tonsil/Adenoidectomy - Present Medications Home Medications: Ambulatory Orders Medication Instructions Recorded Confirmed Albuterol Sulfate [Albuterol 2 puffs INH Q4H PRN 12/25/19 06/20/20 Sulfate Hfa] Apixaban [Eliquis] 5 mg PO BID 12/25/19 06/20/20 Metoprolol Succinate [Toprol Xl] 25 mg PO DAILY 12/25/19 06/20/20 - Allergies Allergies/Adverse Reactions: Allergies Allergy/AdvReac Type Severity Reaction Status Date / Time amoxicillin Allergy Unknown Verified 06/20/20 18:01 iodine Allergy Hives Verified 06/20/20 18:01 shellfish derived Allergy Hives Verified 06/20/20 18:01 lactose AdvReac Cramps Verified 06/20/20 18:01 - Social History Does the pt smoke?: No Smoking Status: Never smoker Does the pt drink ETOH?: No Does the pt have substance abuse?: No - Immunizations Immunizations are current?: Yes - POLST Patient has POLST: No PD ED PE EXPANDED - General General: Alert, No acute distress, Well developed/nourished - Neck Neck: Supple w/out meningeal sx, No tenderness. No: Soft tissue TTP, Limited ROM - Cardiac Cardiac: Regular Rate, Regular Rhythm, Radial strong equal, Pedal strong equal, Cap refill < 2 sec - Respiratory Respiratory: Clear to ausultation berta. No: Distress, Labored - Abdomen Abdomen: Normal Bowel sounds, Other (obese abdomen with large hanging pannus). No: Tender to palpation - Back Back: No: Vertebral tenderness, Soft tissue tenderness - Derm Derm: Normal color, Warm and dry, Other (Superficial abrasion right elbow. 2 cm skin tear left wrist. Normal movement flexion extension against resistance of both joints.) - Extremities Extremities: Left knee (Mild tenderness with palpation of the lateral edge of the left knee. Bony deformity which patient reports is chronic for hair. She is able to flex and extend with minimal pain.), Pedal edema bilateral - Neuro Neuro: Alert and Oriented X 3, CNII-XII intact, Normal finger nose, Normal speech - GCS Eye Opening: Spontaneous Motor: Obeys Commands Verbal: Oriented Total: 15 Results - Vitals Vitals: Vital Signs - 24 hr 06/20/20 06/20/20 17:55 18:23 Temperature 36.4 C L Heart Rate 78 74 Respiratory 20 16 Rate Blood Pressure 117/89 H 163/56 H O2 Saturation 98 100 Oxygen O2 Source [With Activity] Room air O2 Source Room air - Rads (name of study) CT head Radiology: Final report received (Due to intracranial process. Moderate atrophy and chronic microvascular ischemic changes) CHEST XR Radiology: Final report received (No acute cardiopulmonary process) left knee Radiology: Final report received (Arthritic changes. No visualized fracture or dislocation.) PD MEDICAL DECISION MAKING - ED course Complexity details: reviewed results, re-evaluated patient, d/w patient ED course: This is a very pleasant 85-year-old female comes to the emergency department via EMS after ground-level fall at home in which she tripped while using her walker. She is anticoagulated but did not strike her head. There was no loss of consciousness. She denies chest pain back pain. She does endorse fairly significant. After imaging was completed the patient was road tested here in the emergency department using a walker and she had a very stable gait. This time she is stable for discharge home. Advise close follow-up with her primary care doctor and encouraged to always use a walker when ambulating at home. Departure - Departure Disposition: Home, Self Care Clinical Impression: Fall from ground level, Anticoagulated Condition: Stable Record reviewed to determine appropriate education?: Yes Comments: Morning you were seen in the emergency department after ground-level fall at home. We did do a CAT scan of your head because you are anticoagulated. Reassuringly the CAT scan does not show any worrisome findings. You also reported left knee pain. The x-ray of the knee shows no fractures but you do have fairly significant arthritis of this knee. Always use your walker when ambulating at home. If you develop chest pain have sudden shortness of breath 2 or more episodes of uncontrolled vomiting please return immediately to the ER for second look You can continue to take the Tylenol at home for discomfort. I do expect that over the next 24 to 48 hours you feel more sore than you do now but then it should begin to steadily improve
--- NOTE | 2020-06-20 18:38 | XRAY Report ---
PROCEDURE: Chest 1 View X-Ray INDICATIONS: chest pain TECHNIQUE: One view of the chest was acquired. COMPARISON: Chest x-ray 12/24/2019 FINDINGS: Surgical changes and devices: Sternal wires. Lungs and pleura: No pleural effusions or pneumothorax. Lungs are clear. Mediastinum: Mediastinal contours appear normal. Heart size is enlarged. Bones and chest wall: No suspicious bony lesions. Overlying soft tissues appear unremarkable. Old right humeral head fracture. IMPRESSION: No acute pulmonary process. Reviewed by: Shea Mcguire MD on 06/20/2020 6:36 PM PDT Approved by: Shea Mcguire MD on 06/20/2020 6:36 PM PDT Station ID: [id number]
--- NOTE | 2020-06-20 18:38 | XRAY Report ---
PROCEDURE: Knee 2 View LT INDICATIONS: GLF TECHNIQUE: 2 views of the left knee(s) were acquired. COMPARISON: None. FINDINGS: Bones: No fractures or dislocations. No suspicious bony lesions. Moderate to severe medial and pat ellofemoral degenerative compartment narrowing. Periarticular osteophytes are present. Soft tissues: No joint effusion. No suspicious soft tissue calcifications. IMPRESSION: Arthritic changes as above. No visualized acute fracture or dislocation. However, occult injury cannot be excluded. Recommend short interval imaging follow-up in 7-10 days as clinically ind icated for additional evaluation. Reviewed by: Shea Mcguire MD on 06/20/2020 6:37 PM PDT Approved by: Shea Mcguire MD on 06/20/2020 6:37 PM PDT Station ID: [id number]
--- NOTE | 2020-06-20 18:42 | CT Report ---
PROCEDURE: HEAD WO INDICATIONS: GLF, anticoagulated TECHNIQUE: Noncontrast 4.5 mm thick angled axial sections acquired from the foramen magnum to the vertex. For r adiation dose reduction, the following was used: automated exposure control, adjustment of mA and/or kV according to patient size. COMPARISON: None. FINDINGS: Image quality: Excellent. The ventricular system and cortical sulci demonstrate atrophy, consistent for patient's stated age. There are areas of hypodensity in the periventricular and subcortical white matter. There is no acut e intra or extra-axial fluid collection. No acute hemorrhage, mass lesion or midline shift. Brainst em is unremarkable. Globes are symmetrical. Sinuses are aerated. Osseous structures are intact. Prominent calcifications are noted along the falx and tentorium. IMPRESSION: 1. No acute intracranial process. 2. Moderate atrophy and chronic microvascular ischemic changes. Reviewed by: Shea Mcguire MD on 06/20/2020 6:41 PM PDT Approved by: Shea Mcguire MD on 06/20/2020 6:41 PM PDT Station ID: [id number]
[2020-06-20] MEDS ORDERED: ACETAMINOPHEN 325 MG TABLET PO STA (19:40)
[2020-06-20 21:17] VITALS: BP 160/58
== END 2020-06-20 21:00 | disposition home or self-care (01) ==
LOC: EDUNIT# → ED 17:48
DX: S50.311A Abrasion of right elbow, initial encounter (principal); S61.512A Laceration without foreign body of left wrist, initial encounter; M25.562 Pain in left knee; W01.0XXA Fall on same level from slipping, tripping and stumbling without subsequent striking against object, initial encounter; Y93.01 Activity, walking, marching and hiking; Y92.039 Unspecified place in apartment as the place of occurrence of the external cause; M17.12 Unilateral primary osteoarthritis, left knee; I48.91 Unspecified atrial fibrillation; Z79.01 Long term (current) use of anticoagulants; I25.10 Atherosclerotic heart disease of native coronary artery without angina pectoris; I10 Essential (primary) hypertension; Z95.1 Presence of aortocoronary bypass graft
CPT/HCPCS: 70450; 71045; 73560; 99284; A9270

== ENCOUNTER 2021-02-23 02:30 | Outpatient (CLI) | payer MEDICARE, MEDICAID | END 2021-02-23 02:31 | disposition critical access hospital (66) | LOC: EMS 02:30 | DX: R53.1 Weakness (principal) | CPT/HCPCS: A0425; A0429 ==

== ENCOUNTER 2021-02-23 02:33 | Inpatient (IN) | payer MEDICARE, MEDICAID ==
--- NOTE | 2021-02-23 02:58 | ED Physician Documentation ---
PD HPI URI - Stated complaint Stated Complaint: GEN WEAKNESS/COUGH - Chief complaint Chief Complaint: Resp - History obtained from History obtained from: Patient, EMS - History of Present Illness Timing - onset: How many days ago (5) Timing duration: Days (5) Timing details: Gradual onset, Still present Associated symptoms: Nasal congestion, Dry cough, Dyspnea, Other (weakness) Contributing factors: Unimmunized Improves by: Rest Worsened by: Activity Similar symptoms before: Diagnosis (pneumonia) Recently seen: Not recently seen - Additional information Additional information: 86 y/o female with a history of afib on eliquis has developed a cough and congestion with weakness. Her weakness is profound this morning and she called 911 when she was unable to get up. Her daughter has come to stay with her as she was feeling sick the past 5 days. She is unimmunized against COVID Review of Systems Constitutional: reports: Fever, Chills, Myalgias, Fatigue Eyes: denies: Decreased vision Ears: denies: Ear pain Nose: reports: Congestion. denies: Rhinorrhea / runny nose Throat: denies: Sore throat Cardiac: denies: Chest pain / pressure, Palpitations Respiratory: reports: Dyspnea, Cough, Wheezing GI: denies: Abdominal Pain, Nausea, Vomiting, Diarrhea : denies: Dysuria, Frequency Skin: denies: Rash Musculoskeletal: denies: Neck pain, Back pain, Extremity pain Neurologic: reports: Generalized weakness. denies: Focal weakness, Numbness, Difficulty speaking PD PAST MEDICAL HISTORY - Past Medical History Cardiovascular: Hypertension, Coronary artery disease, [place], Atrial fibrillation Respiratory: Asthma Neuro: None Endocrine/Autoimmune: None GI: None VIDEO MANAGER: None : Kidney stones HEENT: None Psych: Anxiety Musculoskeletal: Osteoarthritis, Other Derm: Other - Past Surgical History Past Surgical History: Yes General: Other /VIDEO MANAGER: Hysterectomy Cardiovascular: CABG HEENT: Tonsil/Adenoidectomy - Present Medications Home Medications: Ambulatory Orders Medication Instructions Recorded Confirmed Albuterol Sulfate [Albuterol 2 puffs INH Q4H PRN 12/25/19 02/23/21 Sulfate Hfa] Apixaban [Eliquis] 5 mg PO BID 12/25/19 02/23/21 Metoprolol Succinate [Toprol Xl] 25 mg PO DAILY 12/25/19 02/23/21 - Allergies Allergies/Adverse Reactions: Allergies Allergy/AdvReac Type Severity Reaction Status Date / Time amoxicillin Allergy Unknown Verified 02/23/21 02:49 iodine Allergy Hives Verified 02/23/21 02:49 shellfish derived Allergy Hives Verified 02/23/21 02:49 lactose AdvReac Cramps Verified 02/23/21 02:49 - Social History Does the pt smoke?: No Smoking Status: Never smoker Does the pt drink ETOH?: No Does the pt have substance abuse?: No - Immunizations Immunizations are current?: Yes - POLST Patient has POLST: No PD ED PE NORMAL - Vitals Vital signs reviewed: Yes (Hypertensive) - General General: Alert and oriented X 3, Well developed/nourished, Other (Older appearing 86-year-old female with some delay in execution of motor commands and some speech latency) - HEENT HEENT: Atraumatic, PERRL, EOMI - Neck Neck: Supple, no meningeal sign, No bony TTP - Cardiac Cardiac: RRR, No murmur - Respiratory Respiratory: Other (Tachypneic at rest with bilateral end inspiratory crackles worse on the left base.) - Abdomen Abdomen: Soft, Non tender - Back Back: No CVA TTP, No spinal TTP - Derm Derm: Normal color, Warm and dry, No rash - Extremities Extremities: No deformity, No edema - Neuro Neuro: Alert and oriented X 3, director of dance 2-12 intact, No motor deficit, No sensory deficit, Other (Speech latency 1 to 2 seconds) Eye Opening: Spontaneous Motor: Obeys Commands Verbal: Oriented GCS Score: 15 - Psych Psych: Normal mood, Normal affect Results - Vitals Vitals: Vital Signs - 24 hr 02/23/21 02/23/21 02/23/21 02:35 03:43 04:13 Temperature 37.4 C Heart Rate 90 88 96 Respiratory 24 26 H 26 H Rate Blood Pressure 180/85 H 183/54 H 163/73 H O2 Saturation 95 95 95 02/23/21 02/23/21 02/23/21 04:30 05:30 06:00 Temperature Heart Rate 85 88 88 Respiratory 26 H Rate Blood Pressure 156/55 H 157/77 H 157/77 H O2 Saturation 95 94 94 02/23/21 06:30 Temperature Heart Rate 86 Respiratory 33 H Rate Blood Pressure 178/70 H O2 Saturation 94 Oxygen O2 Source [] Room air O2 Source Room air - Labs Labs: Laboratory Tests 02/23/21 02/23/21 02/23/21 02:58 03:08 03:08 WBC 5.2 RBC 3.09 L Hgb 10.2 L Hct 29.3 L MCV 94.8 MCH 33.0 H MCHC 34.8 RDW 13.3 Plt Count 157 MPV 11.1 H Neut # (Auto) 4.5 Lymph # (Auto) 0.4 L [place] # (Auto) 0.3 Eos # (Auto) 0.0 Baso # (Auto) 0.0 Absolute Nucleated RBC 0.00 Nucleated RBC % 0.0 Sodium 128 L Potassium 3.3 L Chloride 93 L Carbon Dioxide 21 Anion Gap 14.0 H BUN 21 H Creatinine 0.8 Estimated GFR (MDRD) 68 L Glucose 107 H Lactic Acid Calcium 8.8 Total Bilirubin 1.4 H AST 49 H ALT 20 Alkaline Phosphatase 27 L B-Natriuretic Peptide Total Protein 6.5 L Albumin 3.0 L Globulin 3.5 Albumin/Globulin Ratio 0.9 L Lipase 32 Urine Color Urine Clarity Urine pH Ur Specific [place] Urine Protein Urine Glucose (UA) Urine Ketones Urine Occult Blood Urine Nitrite Urine Bilirubin Urine Urobilinogen Ur Leukocyte Esterase Urine RBC Urine WBC Ur Squamous Epith Cells Urine Bacteria Ur Microscopic Review Urine Culture Comments Nasal Adenovirus (PCR) NOT DETECTED Nasal B. parapertussis DNA (PCR) NOT DETECTED Nasal Coronavir 229E PCR NOT DETECTED Nasal Coronavir HKU1 PCR NOT DETECTED Nasal Coronavir NL63 PCR NOT DETECTED Nasal Coronavir OC43 PCR NOT DETECTED Nasal Enterovir/Rhinovir PCR NOT DETECTED Nasal Influenza B PCR NOT DETECTED Nasal Influenza A PCR NOT DETECTED Nasal Parainfluen 1 PCR NOT DETECTED Nasal Parainfluen 2 PCR NOT DETECTED Nasal Parainfluen 3 PCR NOT DETECTED Nasal Parainfluen 4 PCR NOT DETECTED Nasal RSV (PCR) NOT DETECTED Nasal B.pertussis DNA PCR NOT DETECTED Nasal C.pneumoniae (PCR) NOT DETECTED [place] Human Metapneumo PCR NOT DETECTED Nasal M.pneumoniae (PCR) NOT DETECTED Nasal SARS-CoV-2 (PCR) DETECTED A 02/23/21 02/23/21 02/23/21 03:08 03:08 04:19 WBC RBC Hgb Hct MCV MCH MCHC RDW Plt Count MPV Neut # (Auto) Lymph # (Auto) [place] # (Auto) Eos # (Auto) Baso # (Auto) Absolute Nucleated RBC Nucleated RBC % Sodium Potassium Chloride Carbon Dioxide Anion Gap BUN Creatinine Estimated GFR (MDRD) Glucose Lactic Acid 1.1 Calcium Total Bilirubin AST ALT Alkaline Phosphatase B-Natriuretic Peptide 531 H Total Protein Albumin Globulin Albumin/Globulin Ratio Lipase Urine Color YELLOW Urine Clarity CLEAR Urine pH 6.0 Ur Specific [place] 1.020 Urine Protein 100 H Urine Glucose (UA) NEGATIVE Urine Ketones 15 H Urine Occult Blood TRACE-INTA Urine Nitrite POSITIVE H Urine Bilirubin NEGATIVE Urine Urobilinogen 0.2 (NORMAL) Ur Leukocyte Esterase NEGATIVE Urine RBC 0-5 Urine WBC 0-3 Ur Squamous Epith Cells FEW Squamous Urine Bacteria Many H Ur Microscopic Review INDICATED Urine Culture Comments INDICATED Nasal Adenovirus (PCR) Nasal B. parapertussis DNA (PCR) Nasal Coronavir 229E PCR Nasal Coronavir HKU1 PCR Nasal Coronavir NL63 PCR Nasal Coronavir OC43 PCR Nasal Enterovir/Rhinovir PCR Nasal Influenza B PCR Nasal Influenza A PCR Nasal Parainfluen 1 PCR Nasal Parainfluen 2 PCR Nasal Parainfluen 3 PCR Nasal Parainfluen 4 PCR Nasal RSV (PCR) Nasal B.pertussis DNA PCR Nasal C.pneumoniae (PCR) Rustam Human Metapneumo PCR Nasal M.pneumoniae (PCR) Nasal SARS-CoV-2 (PCR) - Rads (name of study) Chest Radiology: Prelim report reviewed (Impression: Extensive bilateral consolidations suggestive of pneumonia), EMP read indepedently, See rad report Procedures - IVC sono (time) 0300 Bedside IVC sono: IVC measures (cm), Euvolemia PD MEDICAL DECISION MAKING - ED course Complexity details: reviewed old records, reviewed results, re-evaluated pat ient, considered differential, d/w patient ED course: 86-year-old female presents to the emergency department with a week long history of cough and weakness. She has had fever. Lung examinations consistent with Covid and her chest x-ray is also consistent with Covid pneumonia. A nasal swab is obtained with a bio fire demonstrating Covid.The patient has extensive bilateral infiltrates she is not immunized. She is not hypoxic on arrival to the emergency department. She is administered intravenous Rocephin prior to the results of the Covid test. She presented to the emergency department with weakness and inability to get out of bed. She has had progression of her symptoms for the past week. She has finally called the ambulance at 2:00 in the morning. This morning we do not have beds a [place] and we reached out to Prov in [facility] and they were without beds as well. We are expecting discharges today and we will host the patient in the ED until a bed becomes available. Multiple co-morbidities, bilateral infiltrates day 7 of illness advanced age, unimmunized. We tested the patient's serum for antibodies and found she did have a good IgM stripe she has a weak IgG stripe and I reviewed with the patient the use of Regeneron and its implications in her case. I reviewed the emergency use authorization with the patient and she has consented to its use. Departure - Departure Clinical Impression: Pneumonia due to COVID-19 virus Condition: Serious
[2021-02-23 03:14] LABS: BASOPHILS % (AUTO) 0.4 %; HCT - HEMATOCRIT 29.3 % (37.0-47.0); HGB - HEMOGLOBIN 10.2 g/dL (12.0-16.0); LYMPHOCYTES # (AUTO) 0.4 10^3/uL (1.5-3.5); LYMPHOCYTES % (AUTO) 6.8 %; MEAN CORPUSCULAR HGB CONC 34.8 g/dL (32.0-36.0); MEAN CORPUSCULAR VOLUME 94.8 fL (81.0-99.0); MEAN PLATELET VOLUME 11.1 fL (7.9-10.8); MONOCYTES # (AUTO) 0.3 10^3/uL (0.0-1.0); NEUTROPHILS # (AUTO) 4.5 10^3/uL (1.5-6.6); NEUTROPHILS % (AUTO) 86.6 %; PLT - PLATELET COUNT 157 10^3/uL (130-450); RED BLOOD COUNT 3.09 10^6/uL (4.20-5.40); RED CELL DISTRIBUTION WIDTH 13.3 % (12.0-15.0); WHITE BLOOD COUNT 5.2 x10^3/uL (4.8-10.8)
[2021-02-23] MEDS ORDERED: cefTRIAXone 1 GM in SODIUM CHLORIDE 0.9% MINIBAG 100 ML IV STA (03:20)
[2021-02-23 03:29] LABS: ALBUMIN/GLOBULIN RATIO 0.9 (1.0-2.2); BILIRUBIN,TOTAL 1.4 mg/dL (0.2-1.0); CALCIUM 8.8 mg/dL (8.5-10.3); CREATININE 0.8 mg/dL (0.4-1.0); POTASSIUM 3.3 mmol/L (3.5-5.0); TOTAL PROTEIN 6.5 g/dL (6.7-8.2)
[2021-02-23] MEDS ORDERED: cefTRIAXone 1 GM VIAL ONE (03:40)
[2021-02-23] MEDS ORDERED: SODIUM CHLORIDE 0.9% 1,000 ML IV STA (03:58)
[2021-02-23] MEDS ORDERED: POTASSIUM CHLORIDE 20 MEQ TABLET PO STA (03:58)
[2021-02-23 04:09] LABS: CORONAVIRUS 229E-RESP PCR NOT DETECTED; CORONAVIRUS HKU1-RESP PCR NOT DETECTED; CORONAVIRUS NL63-RESP PCR NOT DETECTED; CORONAVIRUS OC43-RESP PCR NOT DETECTED
[2021-02-23 04:12] LABS: B. PARAPERTUSSIS- RESP PCR PAN NOT DETECTED; B. PERTUSSIS- RESP PCR PANEL NOT DETECTED; C. PNEUMONIAE- RESP PCR PANEL NOT DETECTED; HUMAN METAPNEUMOVIRUS NOT DETECTED; INFLUENZA A- RESP PCR PANEL NOT DETECTED; INFLUENZA B - RESP PCR PANEL NOT DETECTED; M. PNEUMONIAE- RESP PCR PANEL NOT DETECTED; PARAINFLUENZA VIRUS 1 NOT DETECTED; PARAINFLUENZA VIRUS 2 NOT DETECTED; PARAINFLUENZA VIRUS 3 NOT DETECTED; PARAINFLUENZA VIRUS 4 NOT DETECTED; RHINOVIRUS/ENTEROVIRUS NOT DETECTED; RSV- RESP PCR PANEL NOT DETECTED; SARS-CoV-2 -RESP PCR PANEL DETECTED
[2021-02-23 04:25] LABS: BILIRUBIN,URINE NEGATIVE (NEGATIVE); GLUCOSE, URINE (UA) NEGATIVE (NEGATIVE); KETONES,URINE (UA) 15 mg/dL (NEGATIVE); LEUKOCYTE ESTERASE, URINE NEGATIVE (NEGATIVE); NITRITE,URINE POSITIVE (NEGATIVE); OCCULT BLOOD,URINE TRACE-INTA (NEGATIVE); PROTEIN,URINE 100 mg/dL (NEGATIVE); UROBILINOGEN,URINE 0.2 (NORMAL) E.U./dL (NORMAL)
[2021-02-23 04:35] LABS: BACTERIA,URINE Many /HPF (None Seen); CLARITY,URINE CLEAR (CLEAR); RBC,URINE 0-5 /HPF (0-5); SQUAMOUS EPITHELIAL CELL,UR FEW Squamous (<= Few); WBC,URINE 0-3 /HPF (0-5)
[2021-02-23] MEDS ORDERED: ACETAMINOPHEN 325 MG TABLET PO STA (08:26)
[2021-02-23] MEDS ORDERED: CASIRIVIMAB/IMDEVIMAB 10 ML in SODIUM CHLORIDE 0.9% 50 ML IV ONE (08:30)
--- NOTE | 2021-02-23 10:04 | XRAY Report ---
PROCEDURE: Chest 1 View X-Ray INDICATIONS: chest pain TECHNIQUE: One view of the chest was acquired. COMPARISON: Chest x-ray 06/20/2020 FINDINGS: Surgical changes and devices: None. Lungs and pleura: Moderate, diffuse bilateral pulmonary opacities are present. Mediastinum: Mediastinal contours appear normal. Heart size is enlarged. Bones and chest wall: No suspicious bony lesions. Overlying soft tissues appear unremarkable. IMPRESSION: Bilateral pulmonary opacities most suggestive of pneumonia. Reviewed by: Shea Mcguire MD on 02/23/2021 10:02 AM [facility] Approved by: Shea Mcguire MD on 02/23/2021 10:02 AM [facility] Station ID: [id number]
[2021-02-23] MEDS ORDERED: MORPHINE 2 MG/ML CARPUJECT IVP STA (11:57)
[2021-02-23] MEDS ORDERED: LACTATED RINGERS 1,000 ML IV STA (11:57)
[2021-02-23] MEDS ORDERED: KETOROLAC 15 MG/ML VIAL IVP STA (11:58)
[2021-02-23] MEDS ORDERED: SODIUM CHLORIDE FLUSH 0.9% 10 ML SYRINGE IVP PRN (11:59)
[2021-02-23] MEDS ORDERED: ONDANSETRON ODT 4 MG TABLET TL PRN (11:59)
[2021-02-23 12:40] LABS: CALCIUM 8.5 mg/dL (8.5-10.3); CREATININE 0.8 mg/dL (0.4-1.0); POTASSIUM 3.4 mmol/L (3.5-5.0)
[2021-02-23] MEDS: SODIUM CHLORIDE 0.9% 1,000 ML IV SCH (12:54)
[2021-02-23] MEDS: METOPROLOL SUCCINATE 25 MG TABLET PO SCH (14:09)
--- NOTE | 2021-02-23 14:12 | PHARMACY PROGRESS NOTE ---
- Best Possible Medication History Admit Date and Time: 02/23/21 1159 Processed by: Nursing Medication History completed: Yes As the person ultimately responsible for medication therapy, providers are able to order a medication from an existing home medication list in [facility] via the "Reconcile Routine" prior to Confirmation of that medication by it desktop support specialist. Such practice is discouraged except when the physician, in their clinical judgment, deems that a medical need exists for a medication without regard to previous use.
--- NOTE | 2021-02-23 15:52 | HISTORY & PHYSICAL EXAMINATION ---
Chief Complaint - Chief Complaint Chief Complaint: Generalized weakness and cough History of Present Illness - Admitted From Admitted From:: Home - History Obtained From Records Reviewed: [employer] History obtained from: Patient and [employer] Exam Limitations: None - History of Present Illness HPI Comment/Other: Ms. Quintero is an 86 year old female with an extensive past medical history including afib (on Eliquis) who developed a cough and congestion approximately one week prior to Thanksgiving. She has gotten progressively weaker. At baseline she walks with a walker due to "bone on bone" on her right knee, and she reports that just prior to admission she fell and was unable to get up due to her weakness. She called 911 and was brought to the ED. She reports that over the past week she has experienced fever, chills, myalgia, weakness, fatigue, a cough and congestion and thought she had pneumonia. She is unvacci nated against COVID 19. She tested positive for COVID in the ED. Denies shortness of breath, chest pain, or palpitations. Regarding her atrial fibrillation, she was diagnosed approximately 10 years ago and has been on Eliquis ever since. She is also s/p 4 vessel bypass in 2009 for coronary artery disease. She reports she has not taken her medication since she got sick, for a little over a week. She is concerned that she hasn't taken her anticoagulation during that time period given her risk for blood clots. On x-ray she was found to have COVID pneumonia with extensive bilateral infiltrates. She received monoclonal antibodies in the ER. Given her progressive weakness in the setting of her COVID pneumonia and medical comorbidities the decision was made to admit her under observation for closer monitoring. After discussion with the Pt at bedside, she has elected to have a Do Not Resuscitate order placed today. She does not want chest compressions or intubation should her heart stop or her breathing worsen. "If my heart stops that is my sign it's my time to go." She is not currently hypoxic or short of breath. History - Past Medical History Cardiovascular: reports: Hypertension, Coronary artery disease, [place], Atrial fibrillation Respiratory: reports: Asthma Neuro: reports: None Endocrine/Autoimmune: reports: None GI: reports: None STEEL BURNER: reports: None : reports: Kidney stones HEENT: reports: None Psych: reports: Anxiety Musculoskeletal: reports: Osteoarthritis, Other Derm: reports: Other MRSA Hx?: No - Past Surgical History General: reports: Cholecystectomy, Other /STEEL BURNER: reports: Hysterectomy Cardiovascular: reports: CABG HEENT: reports: Tonsil/Adenoidectomy - Family & Social History Family History Comment/Other: Her parents of old age. Her children are healthy. Social History Notes: She lives across the street in the [facility]. 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 Her children have been living with her for couple of months. She has 3 children who all live in [place]. She has 4 grandchildren. She does not smoke or use tobacco products, does not drink alcohol, and denies use of marijuana or illicit drugs such as meth, heroin or cocaine. She does not smoke tobacco products or use any recreational substances. - Substance History Use: Uses substance without health or social issues: NONE Abuse: Recurrent use of substance despite neg consequences: NONE Dependence: Experiences withdrawal or developed tolerances: NONE - POLST Patient has POLST: No POLST Status: DNR (Discussed with Pt, she elected to be DNR status) Meds/Allgy - Home Medications Home Medications: Ambulatory Orders Medication Instructions Recorded Confirmed Albuterol Sulfate [Albuterol 2 puffs INH Q4H PRN 12/25/19 02/23/21 Sulfate Hfa] Apixaban [Eliquis] 5 mg PO BID 12/25/19 02/23/21 Metoprolol Succinate [Toprol Xl] 25 mg PO DAILY 12/25/19 02/23/21 - Allergies Allergies/Adverse Reactions: Allergies Allergy/AdvReac Type Severity Reaction Status Date / Time amoxicillin Allergy Unknown Verified 02/23/21 02:49 iodine Allergy Hives Verified 02/23/21 02:49 shellfish derived Allergy Hives Verified 02/23/21 02:49 lactose AdvReac Cramps Verified 02/23/21 02:49 Review of Systems - Constitutional Constitutional: reports: Fatigue, Malaise, Weakness. denies: Fever (Reports fevers at home but not currently), Chills - Eyes Eyes: denies: Pain, Blurred vision - Ears, Nose & Throat Ears, Nose & Throat: reports: Nasal congestion. denies: Ear pain, Nasal discharge, Sore throat - Cardiovascular Cariovascular: reports: Irregular heart rate. denies: Palpitations, Chest pain, Edema, Lightheadedness, Syncope - Respiratory Respiratory: reports: Cough, Sputum production, Wheezing. denies: Snoring, Hemoptysis, Orthopnea - Gastrointestinal Gastrointestinal: reports: Constipation (constipation at baseline). denies: Abdominal pain, Diarrhea - Genitourinary Genitourinary: denies: Dysuria, Frequency, Urgency, Incontinence - Musculoskeletal Musculoskeletal: denies: Muscle pain, Back pain - Integumentary Integumentary: denies: Rash, Lesions - Neurological Neurological: reports: General weakness. denies: Headache, Dizziness, Abnormal gait - Endocrine Endocrine: denies: Polyuria, Polydypsia, Polyphagia - Hematologic/Lymphatic Hematologic/Lymphatic: reports: Bruising - All Other Systems All Other Systems: reports: Reviewed and negative Prior Level of Functionality: Prior to getting sick she was living independently and walking with a walker. Able to prepare her meals and perform ADLs and iADLs without assistance. Exam - Vital Signs Reviewed Vital Signs: Yes Vital Signs: Vital Signs x48h Temp Pulse Pulse Resp BP BP Pulse Ox 02/23/21 13:00 36.3 C L 94 16 129/60 95 02/23/21 11:30 81 29 H 162/93 H 96 02/23/21 11:00 74 20 126/89 H 95 02/23/21 10:30 75 24 107/47 L 95 02/23/21 10:00 82 24 153/66 H 95 02/23/21 09:30 81 27 H 115/61 96 02/23/21 09:00 79 31 H 123/68 92 02/23/21 08:30 85 28 H 162/67 H 95 02/23/21 08:00 86 30 H 159/105 H 95 02/23/21 07:52 87 29 H 166/73 H 95 - Physical Exam General Appearance: positive: No acute distress, Alert Eyes Bilateral: positive: Normal inspection, PERRL, No scleral icterus ENT: positive: ENT inspection nml, No signs of dehydration Neck: positive: Nml inspection Respiratory: positive: Chest non-tender, No respiratory distress, Wheezes Cardiovascular: positive: No murmur, Irregularly irregular Peripheral Pulses: positive: 2+ Abdomen: positive: Non-tender, No organomegaly, Nml bowel sounds, No distention Back: positive: Nml inspection Skin: positive: Warm, Dry, Pallor Extremities: positive: Non-tender, Full ROM, Nml appearance, No pedal edema Neurologic/Psychiatric: positive: Oriented x3, Sensation nml, Mood/affect nml Sepsis Event Note (H) - Evaluation Current Stage of Sepsis: Ruled out Conclusion/Plan - Problem List (1) Pneumonia due to COVID-19 virus Conclusion/Plan: Pt is unvaccinated. She has a history of asthma. She developed cough, fever and chills approximately one week prior to . She has progressively gotten weaker and this morning fell and was unable to get back up. 911 was called and she was brought to the ER. CXR revealed bilateral infiltrates consistent with pneumonia and her COVID test was positive. WBC was 5.2. She is not short of breath and has not had hypoxia. In the ER she received monoclonal antibodies. She was admitted for observation and will be closely monitored as her unvaccinated status, advanced age and asthma place her at higher risk for hypoxia and worsening disease. As she is not hypoxic will not start Dexamethasone or Remdesvir at this time. -Notify provider if she becomes hypoxic (2) Atrial fibrillation Conclusion/Plan: Diagosed approximately 10 years ago per patient. She has been on Eliquis since then, however reports that she has not consistently taken the medication this week due to being ill. Will plan to resume her home meds for prevention given her long-term use of these for prevention. -Resume home dose of Metoprolol and Eliquis Qualifiers: Atrial fibrillation type: paroxysmal Qualified Code(s): I48.0 - Paroxysmal atrial fibrillation (3) Generalized weakness Conclusion/Plan: Reports she is independent with a walker at baseline but has grown progressively weaker over the past week to the point she was unable to get up after a fall at home. She has a history of falls. Per her report this morning she hit her knee and was unable to get back up. After receiving her monoclonal antibodies and IVF she started feeling better per her report but will have PT evaluate her weakness when able. -PT consult (4) Hyponatremia Conclusion/Plan: In the ED her Na was 128. On recheck this afternoon it was 133. She currently is receiving IVF, will continue her NS infusion at 100ml/hr. She is likely somewhat dehydrated due to being ill this week. -NS @ 100ml/hr (5) History of coronary artery disease Conclusion/Plan: Stable. She has a history of 4 vessel CABG in 2010. No current chest pain or palpitations. She is on anticoagulation therapy for her afib. - Lab Results Fish Bones: 02/23/21 03:08 02/23/21 12:26 - Diagnostic Imaging Results Diagnostic Imaging Results: positive: Final report reviewed Diagnostic Imaging Results Comments: 02/23 Chest x-ray- bilateral pulmonary opacities most suggestive of pneumonia - EKG Results EKG Interpreted Independently: Yes
[2021-02-23] MEDS: SODIUM CHLORIDE FLUSH 0.9% 10 ML SYRINGE IVP SCH (21:34)
[2021-02-23] MEDS: APIXABAN 5 MG TABLET PO SCH (21:34)
[2021-02-23] MEDS ORDERED: DIPHENOX/ATROPINE 2.5/0.025 MG TABLET PO PRN (23:09)
[2021-02-24] MEDS: SODIUM CHLORIDE 0.9% 1,000 ML IV SCH (00:15)
[2021-02-24] MEDS: SODIUM CHLORIDE FLUSH 0.9% 10 ML SYRINGE IVP SCH ×3 (01:49→16:40)
[2021-02-24 06:18] LABS: BASOPHILS % (AUTO) 0.4 %; EOSINOPHILS % (AUTO) 0.7 %; HCT - HEMATOCRIT 28.6 % (37.0-47.0); HGB - HEMOGLOBIN 9.9 g/dL (12.0-16.0); LYMPHOCYTES # (AUTO) 0.6 10^3/uL (1.5-3.5); LYMPHOCYTES % (AUTO) 13.1 %; MEAN CORPUSCULAR HEMOGLOBIN 32.5 pg (27.0-31.0); MEAN CORPUSCULAR HGB CONC 34.6 g/dL (32.0-36.0); MEAN CORPUSCULAR VOLUME 93.8 fL (81.0-99.0); MEAN PLATELET VOLUME 11.1 fL (7.9-10.8); MONOCYTES # (AUTO) 0.3 10^3/uL (0.0-1.0); MONOCYTES % (AUTO) 5.8 %; NEUTROPHILS # (AUTO) 3.6 10^3/uL (1.5-6.6); NEUTROPHILS % (AUTO) 78.5 %; PLT - PLATELET COUNT 166 10^3/uL (130-450); RED BLOOD COUNT 3.05 10^6/uL (4.20-5.40); RED CELL DISTRIBUTION WIDTH 13.7 % (12.0-15.0); WHITE BLOOD COUNT 4.5 x10^3/uL (4.8-10.8)
[2021-02-24 06:29] LABS: CALCIUM 8.1 mg/dL (8.5-10.3); CREATININE 0.7 mg/dL (0.4-1.0); POTASSIUM 3.3 mmol/L (3.5-5.0)
[2021-02-24] MEDS: ACETAMINOPHEN 325 MG TABLET PO PRN (06:55)
[2021-02-24] MEDS ORDERED: ALBUTEROL NEB 2.5 MG/3 ML INH PRN (07:12)
[2021-02-24] MEDS: ALBUTEROL 1 PUFF INH PRN ×4 (07:36→18:12)
[2021-02-24] MEDS: APIXABAN 5 MG TABLET PO SCH ×2 (08:16→21:59)
[2021-02-24] MEDS: METOPROLOL SUCCINATE 25 MG TABLET PO SCH (08:17)
[2021-02-24] MEDS ORDERED: POTASSIUM CHLORIDE 20 MEQ TABLET PO ONE (08:24)
--- NOTE | 2021-02-24 09:25 | XRAY Report ---
PROCEDURE: Chest 1 View X-Ray INDICATIONS: sob TECHNIQUE: One view of the chest was acquired. COMPARISON: 02/23/2021 FINDINGS: Surgical changes and devices: Multiple median sternotomy wires appear intact. Stable postsurgical otto nges from prior CABG. Lungs and pleura: No pneumothorax or pleural effusion. Stable to slight progression of diffusely scat tered bilateral pulmonary airspace opacities most pronounced in the right upper lung zone and left tita ng base. Mediastinum: Mediastinal contours appear normal. Heart size is normal. Bones and chest wall: No suspicious bony lesions. Overlying soft tissues appear unremarkable. IMPRESSION: Stable to slight progression of diffusely scattered bilateral pulmonary airspace opacities consistent with multifocal pneumonia. Reviewed by: Rashaun Davies MD on 02/24/2021 9:24 AM PST Approved by: Rashaun Davies MD on 02/24/2021 9:24 AM PST Station ID: [id number]
[2021-02-24] MEDS ORDERED: REMDESIVIR 100MG VIAL 200 MG in SODIUM CHLORIDE 0.9% 250 ML IV ONE (12:00)
[2021-02-24] MEDS: DEXAMETHASONE 10 MG/ML VIAL IVP SCH (14:05)
--- NOTE | 2021-02-24 14:46 | PROVIDER PROGRESS NOTE ---
Subjective - Prog Note Date Prog Note Date: 02/24/21 - Subjective Subjective: pt's daughter Marcia and pt both refused to have Remdesivir but ok for Decatron, and continue home Eliquis. Updated pt's current medical condition to pt's daughter by phone, answered her questions and concerns. Current Medications - Current Medications Current Medications: Active Medications Acetaminophen (Acetaminophen 325 Mg Tablet) 650 mg PO Q4HR PRN PRN Reason: Pain 1 to 4 Last Admin: 02/24/21 06:55 Dose: 650 mg Documented by: Albuterol (Albuterol Neb 2.5 Mg/3 Ml) 2.5 mg INH RTQ4H PRN PRN Reason: Wheezing Albuterol (Albuterol 1 Puff) 2 puffs INH RTQ4H PRN PRN Reason: Wheezing Last Admin: 02/24/21 11:40 Dose: 2 puffs Documented by: Apixaban (Apixaban 5 Mg Tablet) 5 mg PO BID [facility] Last Admin: 02/24/21 08:16 Dose: 5 mg Documented by: Cholecalciferol (Cholecalciferol 25 Mcg Tablet) 50 mcg PO DAILY [facility] Dexamethasone (Dexamethasone 10 Mg/Ml Vial) 6 mg IVP DAILY [facility] Last Admin: 02/24/21 14:05 Dose: 6 mg Documented by: Diphenoxylate HCl/Atropine (Diphenox/Atropine 2.5/0.025 Mg Tablet) 1 tab PO QID PRN PRN Reason: Diarrhea Last Admin: 02/24/21 00:02 Dose: 1 tab Documented by: Metoprolol Succinate (Metoprolol Succinate 25 Mg Tablet) 25 mg PO DAILY [facility] Last Admin: 02/24/21 08:17 Dose: 25 mg Documented by: Multivitamins (Multivitamin Tablet) 1 tab PO DAILYWM [facility] Ondansetron HCl (Ondansetron Odt 4 Mg Tablet) 4 mg TL Q6HR PRN PRN Reason: Nausea / Vomiting Sodium Chloride (Sodium Chloride Flush 0.9% 10 Ml Syringe) 10 ml IVP PRN PRN PRN Reason: NEEDED PER PROVIDER ORDERS Last Admin: 02/24/21 14:07 Dose: 10 ml Documented by: Sodium Chloride (Sodium Chloride Flush 0.9% 10 Ml Syringe) 10 ml IVP 0100,0900,1700 [facility] Last Admin: 02/24/21 08:25 Dose: Not Given Documented by: Albuterol Sulfate [Albuterol Sulfate Hfa] 2 puffs INH Q4H PRN 12/25/19 Apixaban [Eliquis] 5 mg PO BID 12/25/19 Metoprolol Succinate [Toprol Xl] 25 mg PO DAILY 12/25/19 Objective - Vital Signs/Intake & Output Vital Signs: Vital Signs x48h Temp Pulse Pulse Resp BP Pulse Ox 02/24/21 14:09 36.6 C 61 22 140/55 H 94 02/24/21 11:40 71 22 02/24/21 08:15 86 138/67 H 97 02/24/21 07:40 37 C 75 24 94 02/24/21 07:37 75 24 Intake & Output: Intake & Output 02/21/21 02/22/21 02/23/21 02/24/21 23:59 23:59 23:59 23:59 Intake Total 2534.5 1490 Output Total 200 1000 Balance 2334.5 490 - Objective General Appearance: positive: Alert, Mild distress. negative: Lethargic Eyes Bilateral: positive: Normal inspection, No lid inflammation ENT: positive: ENT inspection nml, No signs of dehydration. negative: Purulent nasal drainage Neck: positive: Nml inspection, Trachea midline. negative: Tracheal deviation Respiratory: positive: Chest non-tender, No respiratory distress, Wheezes, Rales Cardiovascular: positive: Regular rate & rhythm. negative: Tachycardia, Bradycardia, Systolic murmur Peripheral Pulses: 2+ Radial (R), 2+ Radial (L) Abdomen: positive: Non-tender, Nml bowel sounds, No distention. negative: Tenderness Back: positive: Nml inspection Skin: positive: Color nml, Warm, Dry. negative: Cyanosis Extremities: positive: Non-tender, Nml appearance, No pedal edema Neurologic/Psychiatric: positive: Oriented x3, Sensation nml, Mood/affect nml. negative: Weakness, Sensory loss, Facial droop, Slurred/abnml speech, Depressed mood/affect - Lab Results Fish Bones: 02/24/21 06:05 02/24/21 06:05 Other Labs: Lab Results x24hrs 02/24/21 02/24/21 Range/Units 06:05 06:05 WBC 4.5 L (4.8-10.8) x10^3/uL RBC 3.05 L (4.20-5.40) 10^6/uL Hgb 9.9 L (12.0-16.0) g/dL Hct 28.6 L (37.0-47.0) % MCV 93.8 (81.0-99.0) fL MCH 32.5 H (27.0-31.0) pg MCHC 34.6 (32.0-36.0) g/dL RDW 13.7 (12.0-15.0) % Plt Count 166 (130-450) 10^3/uL MPV 11.1 H (7.9-10.8) fL Neut # (Auto) 3.6 (1.5-6.6) 10^3/uL Lymph # (Auto) 0.6 L (1.5-3.5) 10^3/uL [place] # (Auto) 0.3 (0.0-1.0) 10^3/uL Eos # (Auto) 0.0 (0.0-0.7) 10^3/uL Baso # (Auto) 0.0 (0.0-0.1) 10^3/uL Absolute Nucleated RBC 0.00 x10^3/uL Nucleated RBC % 0.0 /100WBC Sodium 132 L (135-145) mmol/L Potassium 3.3 L (3.5-5.0) mmol/L Chloride 100 L (101-111) mmol/L Carbon Dioxide 20 L (21-32) mmol/L Anion Gap 12.0 (6-13) BUN 15 (6-20) mg/dL Creatinine 0.7 (0.4-1.0) mg/dL Estimated GFR (MDRD) 80 L (>89) Glucose 83 (70-100) mg/dL Calcium 8.1 L (8.5-10.3) mg/dL Magnesium 2.0 (1.7-2.8) mg/dL ABX Reporting Has patient been on IV antibiotics over the past 48 hours?: No Sepsis Event Note (H) - Evaluation Current Stage of Sepsis: Ruled out Assessment/Plan - Problem List (1) Respiratory failure with hypoxia Impression: Pt's O2 sat was down to 88% on room air by RT assessment, now pt need 2 liter of O2 by NC and has 94% O2 sat. after she had O2 by WA, she did not present acute respiratory distress now. CXR reveals stable to mild progressive multifocal Pneumonia. It is likely caused by her Covid 19 infection. pt and her daughter refused to have Remdesivir treatment, but ok for Decatron, continue home Eliquis. Continue supplemental oxygen as needed. (2) Pneumonia due to COVID-19 virus Patient become hypoxia on last night, continue need Oxygen support. CXR reveals stable to mild progressive multifocal Pneumonia. She is COVID-19 positive. She was unvaccinated. pt and her daughter refused to have Remdesivir treatment, but ok for Decatron, continue home Eliquis. Continue supplemental oxygen as needed. (3) Atrial fibrillation Stable, continue home dose of Metoprolol and Eliquis (4) Generalized weakness Conclusion/Plan: continue PT consult. per Reports, she is independent with a walker at baseline but has grown progressively weaker over the past week to the point she was unable to get up after a fall at home. She has a history of falls. Per her report this morning she hit her knee and was unable to get back up. she denies pain and injury. (5) Hyponatremia Conclusion/Plan: improved. Na is 132 now. hold IVF now, since pt has Covid 19 infection and easy to have pulmonary edema, and pt ate her regular diet. pt had creatinine 0.7 and BUN 17. (6) History of coronary artery disease Conclusion/Plan: Stable. continue home meds Metoprolol and Eliquis, She is on anticoagulation therapy for her afib. (7) hx of asthma Patient has history of asthma, we will continue decatrol and MDI, Supplemental oxygen as needed
[2021-02-24] MEDS: CHOLECALCIFEROL 25 MCG TABLET PO SCH (16:40)
[2021-02-25] MEDS: SODIUM CHLORIDE FLUSH 0.9% 10 ML SYRINGE IVP SCH ×3 (01:08→20:33)
[2021-02-25] MEDS: ALBUTEROL 1 PUFF INH PRN ×4 (01:13→19:00)
[2021-02-25 05:25] LABS: BASOPHILS % (AUTO) 0.3 %; HCT - HEMATOCRIT 27.9 % (37.0-47.0); HGB - HEMOGLOBIN 9.7 g/dL (12.0-16.0); LYMPHOCYTES % (AUTO) 13.9 %; MEAN CORPUSCULAR HEMOGLOBIN 32.4 pg (27.0-31.0); MEAN CORPUSCULAR HGB CONC 34.8 g/dL (32.0-36.0); MEAN CORPUSCULAR VOLUME 93.3 fL (81.0-99.0); MEAN PLATELET VOLUME 11.1 fL (7.9-10.8); MONOCYTES % (AUTO) 8.2 %; NEUTROPHILS % (AUTO) 73.5 %; PLT - PLATELET COUNT 204 10^3/uL (130-450); RED BLOOD COUNT 2.99 10^6/uL (4.20-5.40); RED CELL DISTRIBUTION WIDTH 13.4 % (12.0-15.0); WHITE BLOOD COUNT 3.2 x10^3/uL (4.8-10.8)
[2021-02-25 05:28] LABS: ABNORMAL LYMPHS % (MANUAL) 0 %
[2021-02-25 05:31] LABS: CALCIUM 8.6 mg/dL (8.5-10.3); CREATININE 0.7 mg/dL (0.4-1.0); MAGNESIUM 2.1 mg/dL (1.7-2.8); POTASSIUM 3.6 mmol/L (3.5-5.0)
[2021-02-25 05:46] LABS: BAND NEUTROPHILS % (MANUAL) 12 %; LYMPHOCYTES # (MANUAL) 0.3 10^3/uL (1.5-3.5); LYMPHOCYTES % (MANUAL) 6 %; METAMYELOCYTES % (MANUAL) 1 %; MONOCYTES # (MANUAL) 0.2 10^3/uL (0.0-1.0); NEUTROPHILS # (MANUAL) 2.7 10^3/uL (1.5-6.6); REACTIVE LYMPHS % (MANUAL) 2 %
[2021-02-25 05:47] LABS: DIFFERENTIAL COMMENT MANUAL DIFFERENTIAL; PLATELET ESTIMATE, MANUAL NORMAL (130-450,000) (NORMAL); RBC MORPHOLOGY (MULTIPLE) NORMAL APPEARANCE (NORMAL)
[2021-02-25] MEDS: MULTIVITAMIN TABLET PO SCH (08:44)
[2021-02-25] MEDS: CHOLECALCIFEROL 25 MCG TABLET PO SCH (08:44)
[2021-02-25] MEDS: METOPROLOL SUCCINATE 25 MG TABLET PO SCH (08:44)
[2021-02-25] MEDS: APIXABAN 5 MG TABLET PO SCH ×2 (08:45→20:41)
[2021-02-25] MEDS: DEXAMETHASONE 10 MG/ML VIAL IVP SCH (08:50)
[2021-02-25] MEDS ORDERED: REMDESIVIR 100MG VIAL 100 MG in SODIUM CHLORIDE 0.9% 100ML 100 ML IV SCH (09:00)
--- NOTE | 2021-02-25 11:54 | PROVIDER PROGRESS NOTE ---
Assessment/Plan - Problem List (1) Respiratory failure with hypoxia Assessment/Plan: 02/25 improved. pt had 93% sat on room air without acute respiratory distress. we will continue Decatron, continue home Eliquis. Pt's O2 sat was down to 88% on room air by RT assessment, now pt need 2 liter of O2 by NC and has 94% O2 sat. after she had O2 by NC, she did not present acute respiratory distress now. CXR reveals stable to mild progressive multifocal Pneumonia. It is likely caused by her Covid 19 infection. pt and her daughter refused to have Remdesivir treatment, but ok for Decatron, continue home Eliq uis. Continue supplemental oxygen as needed. (2) Pneumonia due to COVID-19 virus Patient become hypoxia on last night, continue need Oxygen support. CXR reveals stable to mild progressive multifocal Pneumonia. She is COVID-19 positive. She was unvaccinated. pt and her daughter refused to have Remdesivir treatment, but ok for Decatron, continue home Eliquis. Continue supplemental oxygen as needed. (3) Atrial fibrillation Stable, continue home dose of Metoprolol and Eliquis (4) Generalized weakness Conclusion/Plan: continue PT consult. per Reports, she is independent with a walker at baseline but has grown progressively weaker over the past week to the point she was unable to get up after a fall at home. She has a history of falls. Per her report this morning she hit her knee and was unable to get back up. she denies pain and injury. (5) Hyponatremia Conclusion/Plan: 02/25 resolved, Na is 136 improved. Na is 132 now. hold IVF now, since pt has Covid 19 infection and easy to have pulmonary edema, and pt ate her regular diet. pt had creatinine 0.7 and BUN 17. (6) History of coronary artery disease Conclusion/Plan: Stable. continue home meds Metoprolol and Eliquis, She is on anticoagulation therapy for her afib. (7) hx of asthma 02/25 improved. pt's lung sound is improved, wheezing is significant reduced. pt had 93% sat on room air without acute respiratory distress. continue Decatron and continue Albuterol as needed Patient has history of asthma, we will continue decatron and MDI, Supplemental oxygen as needed (8)UTI 02/25/21 UA analysis and UA culture show positive for Klebsiella Oxytoca, but pt has no symptoms, no dysuria, and no fever, not elevated WBC instead slight low WBC. at this point, pt is asymptomatic, we hold antibiotics now. - Current Meds Current Meds: Current Medications Generic Name Dose Route Start Last Admin Trade Name Phoenixq PRN Reason Stop Dose Admin Acetaminophen 650 mg 02/23/21 11:59 02/24/21 06:55 Acetaminophen 325 Mg Tablet PO 650 mg Q4HR PRN Administration Pain 1 to 4 Albuterol 2 puffs 02/24/21 07:22 02/25/21 07:44 Albuterol 1 Puff INH 2 puffs RTQ4H PRN Administration Wheezing Apixaban 5 mg 02/23/21 21:00 02/25/21 08:45 Apixaban 5 Mg Tablet PO 5 mg BID [facility] Administration Cholecalciferol 50 mcg 02/24/21 16:00 02/25/21 08:44 Cholecalciferol 25 Mcg Tablet PO 50 mcg DAILY [facility] Administration Dexamethasone 6 mg 02/24/21 13:00 02/25/21 08:50 Dexamethasone 10 Mg/Ml Vial IVP 6 mg DAILY [facility] Administration Diphenoxylate HCl/Atropine 1 tab 02/23/21 23:09 02/24/21 00:02 Diphenox/Atropine 2.5/0.025 Mg Tablet PO 1 tab QID PRN Administration Diarrhea Metoprolol Succinate 25 mg 02/23/21 14:00 02/25/21 08:44 Metoprolol Succinate 25 Mg Tablet PO 25 mg DAILY [facility] Administration Multivitamins 1 tab 02/25/21 08:00 02/25/21 08:44 Multivitamin Tablet PO 1 tab DAILYWM [facility] Administration Sodium Chloride 10 ml 02/23/21 11:59 02/24/21 14:07 Sodium Chloride Flush 0.9% 10 Ml Syringe IVP 10 ml PRN PRN Administration NEEDED PER PROVIDER ORDERS Sodium Chloride 10 ml 02/23/21 17:00 02/25/21 08:50 Sodium Chloride Flush 0.9% 10 Ml Syringe IVP 10 ml 0100,0900,1700 [facility] Administration - Lab Result Fish Bone Diagrams: 02/25/21 04:38 02/25/21 04:38 - Additional Planning My Orders: My Active Orders 02/24/21 13:00 dexAMETHasone [Decadron] 6 mg IVP DAILY 02/24/21 16:00 Cholecalciferol [Vitamin D3] 50 mcg PO DAILY 02/25/21 CUL, RESPIRATORY [RM] Urgent 02/25/21 08:00 Multivitamin [Theragran] 1 tab PO DAILYWM Subjective - Subjective Patient Reports: Feeling Better, Resting Comfortably Objective Vital Signs: Vital Signs - 24 hr 02/24/21 02/24/21 02/24/21 14:09 15:33 17:00 Temperature 36.6 C 36.6 C Heart Rate 74 Heart Rate [ 61 88 Brachial] Respiratory 22 22 24 Rate Blood Pressure 140/55 H 148/93 H [Left Brachial artery] O2 Saturation 94 95 02/24/21 02/24/21 02/25/21 18:13 20:58 00:49 Temperature 36.6 C 36.7 C Heart Rate 70 Heart Rate [ 84 84 Brachial] Respiratory 20 23 24 Rate Blood Pressure 101/84 H 150/69 H [Left Brachial artery] O2 Saturation 97 95 02/25/21 02/25/21 02/25/21 05:13 07:31 07:47 Temperature 36.4 C L 36.4 C L Heart Rate 78 Heart Rate [ 82 86 Brachial] Respiratory 24 22 22 Rate Blood Pressure 148/83 H 141/63 H [Left Brachial artery] O2 Saturation 96 95 02/25/21 08:42 Temperature Heart Rate Heart Rate [ 90 Brachial] Respiratory Rate Blood Pressure [Left Brachial artery] O2 Saturation 93 Oxygen O2 Source [With Activity] Room air O2 Source Room air I&O (Last 24 Hrs): Intake and Output Totals x24h 02/23/21 02/24/21 02/25/21 23:59 23:59 23:59 Intake Total 2534.5 1830 390 Output Total 200 1700 775 Balance 2334.5 130 -385 General: Alert, Cooperative, No acute distress HEENT: Atraumatic Neck: Supple Lymphatic: no adenopathy Neuro: Alert, Non Focal, Oriented Times 3 Cardiovascular: Regular rate, Normal S1, Normal S2 Respiratory: Chest non-tender, No respiratory distress Abdomen: Normal bowel sounds, Soft, No tenderness Extremities: Normal pulses - Results Results: Laboratory Results WBC 3.2 x10^3/uL (4.8-10.8) L 02/25/21 04:38 RBC 2.99 10^6/uL (4.20-5.40) L 02/25/21 04:38 Hgb 9.7 g/dL (12.0-16.0) L 02/25/21 04:38 Hct 27.9 % (37.0-47.0) L 02/25/21 04:38 MCV 93.3 fL (81.0-99.0) 02/25/21 04:38 MCH 32.4 pg (27.0-31.0) H 02/25/21 04:38 MCHC 34.8 g/dL (32.0-36.0) 02/25/21 04:38 RDW 13.4 % (12.0-15.0) 02/25/21 04:38 Plt Count 204 10^3/uL (130-450) 02/25/21 04:38 MPV 11.1 fL (7.9-10.8) H 02/25/21 04:38 Neut # (Auto) Not Reportable 02/25/21 04:38 Lymph # (Auto) Not Reportable 02/25/21 04:38 [place] # (Auto) Not Reportable 02/25/21 04:38 Eos # (Auto) Not Reportable 02/25/21 04:38 Baso # (Auto) Not Reportable 02/25/21 04:38 Absolute Nucleated RBC Not Reportable 02/25/21 04:38 Total Counted 100 02/25/21 04:38 Band Neuts % (Manual) 12 % (0-10) H 02/25/21 04:38 Reactive Lymphs % (Man) 2 % 02/25/21 04:38 Abnorm Lymph % (Manual) 0 % 02/25/21 04:38 Metamyelocytes % 1 % (-0) H 02/25/21 04:38 Nucleated RBC % Not Reportable 02/25/21 04:38 Neutrophils # (Manual) 2.7 10^3/uL (1.5-6.6) 02/25/21 04:38 Lymphocytes # (Manual) 0.3 10^3/uL (1.5-3.5) L 02/25/21 04:38 Monocytes # (Manual) 0.2 10^3/uL (0.0-1.0) 02/25/21 04:38 Eosinophils # (Manual) 0.0 10^3/uL (0-0.7) 02/25/21 04:38 Basophils # (Manual) 0.0 10^3/uL (0-0.1) 02/25/21 04:38 Differential Comment MANUAL DIFFERENTIAL 02/25/21 04:38 Platelet Estimate NORMAL (130-450,000) (NORMAL) 02/25/21 04:38 RBC Morph Micro Appear NORMAL APPEARANCE (NORMAL) 02/25/21 04:38 Sodium 136 mmol/L (135-145) 02/25/21 04:38 Potassium 3.6 mmol/L (3.5-5.0) 02/25/21 04:38 Chloride 103 mmol/L (101-111) 02/25/21 04:38 Carbon Dioxide 21 mmol/L (21-32) 02/25/21 04:38 Anion Gap 12.0 (6-13) 02/25/21 04:38 BUN 13 mg/dL (6-20) 02/25/21 04:38 Creatinine 0.7 mg/dL (0.4-1.0) 02/25/21 04:38 Estimated GFR (MDRD) 80 (>89) L 02/25/21 04:38 Glucose 170 mg/dL (70-100) H 02/25/21 04:38 Lactic Acid 1.1 mmol/L (0.5-2.2) 02/23/21 03:08 Calcium 8.6 mg/dL (8.5-10.3) 02/25/21 04:38 Magnesium 2.1 mg/dL (1.7-2.8) 02/25/21 04:38 Total Bilirubin 1.4 mg/dL (0.2-1.0) H 02/23/21 03:08 AST 49 IU/L (10-42) H 02/23/21 03:08 ALT 20 IU/L (10-60) 02/23/21 03:08 Alkaline Phosphatase 27 IU/L (42-121) L 02/23/21 03:08 B-Natriuretic Peptide 531 pg/mL (5-100) H 02/23/21 03:08 Total Protein 6.5 g/dL (6.7-8.2) L 02/23/21 03:08 Albumin 3.0 g/dL (3.2-5.5) L 02/23/21 03:08 Globulin 3.5 g/dL (2.1-4.2) 02/23/21 03:08 Albumin/Globulin Ratio 0.9 (1.0-2.2) L 02/23/21 03:08 Lipase 32 U/L (22-51) 02/23/21 03:08 25-OH Vitamin D Total 33 ng/mL (30-100) 02/24/21 13:30 Urine Color YELLOW 02/23/21 04:19 Urine Clarity CLEAR (CLEAR) 02/23/21 04:19 Urine pH 6.0 PH (5.0-7.5) 02/23/21 04:19 Ur Specific Fate 1.020 (1.002-1.030) 02/23/21 04:19 Urine Protein 100 mg/dL (NEGATIVE) H 02/23/21 04:19 Urine Glucose (UA) NEGATIVE mg/dL (NEGATIVE) 02/23/21 04:19 Urine Ketones 15 mg/dL (NEGATIVE) H 02/23/21 04:19 Urine Occult Blood TRACE-INTA (NEGATIVE) 02/23/21 04:19 Urine Nitrite POSITIVE (NEGATIVE) H 02/23/21 04:19 Urine Bilirubin NEGATIVE (NEGATIVE) 02/23/21 04:19 Urine Urobilinogen 0.2 (NORMAL) E.U./dL (NORMAL) 02/23/21 04:19 Ur Leukocyte Esterase NEGATIVE (NEGATIVE) 02/23/21 04:19 Urine RBC 0-5 /HPF (0-5) 02/23/21 04:19 Urine WBC 0-3 /HPF (0-5) 02/23/21 04:19 Ur Squamous Epith Cells FEW Squamous (<= Few) 02/23/21 04:19 Urine Bacteria Many /HPF (None Seen) H 02/23/21 04:19 Ur Microscopic Review INDICATED 02/23/21 04:19 Urine Culture Comments INDICATED 02/23/21 04:19 Nasal Adenovirus (PCR) NOT DETECTED 02/23/21 02:58 Nasal B. parapertussis DNA (PCR) NOT DETECTED 02/23/21 02:58 Nasal Coronavir 229E PCR NOT DETECTED 02/23/21 02:58 Nasal Coronavir HKU1 PCR NOT DETECTED 02/23/21 02:58 Nasal Coronavir NL63 PCR NOT DETECTED 02/23/21 02:58 Nasal Coronavir OC43 PCR NOT DETECTED 02/23/21 02:58 Nasal Enterovir/Rhinovir PCR NOT DETECTED 02/23/21 02:58 Nasal Influenza B PCR NOT DETECTED 02/23/21 02:58 Nasal Influenza A PCR NOT DETECTED 02/23/21 02:58 Nasal Parainfluen 1 PCR NOT DETECTED 02/23/21 02:58 Nasal Parainfluen 2 PCR NOT DETECTED 02/23/21 02:58 Nasal Parainfluen 3 PCR NOT DETECTED 02/23/21 02:58 Nasal Parainfluen 4 PCR NOT DETECTED 02/23/21 02:58 Nasal RSV (PCR) NOT DETECTED 02/23/21 02:58 Nasal B.pertussis DNA PCR NOT DETECTED 02/23/21 02:58 Nasal C.pneumoniae (PCR) NOT DETECTED 02/23/21 02:58 Rustam Human Metapneumo PCR NOT DETECTED 02/23/21 02:58 Nasal M.pneumoniae (PCR) NOT DETECTED 02/23/21 02:58 Nasal SARS-CoV-2 (PCR) DETECTED A 02/23/21 02:58 - Procedures Procedures: Procedures REPLACEMENT OF LEFT LENS WITH SYNTH SUB, PERC APPROACH (06/10/16) RESECTION OF GALLBLADDER, PERCUTANEOUS ENDOSCOPIC APPROACH (12/25/19) REVISION OF EXTRALUMINAL DEVICE IN STOMACH, PERC APPROACH (12/25/19) VENOUS CATHETERIZATION NEC (02/02/14) Sepsis Event Note (H) - Evaluation Current Stage of Sepsis: Ruled out ABX Reporting Has patient been on IV antibiotics over the past 48 hours?: No Current Medications - Current Medications Current Medications: Active Medications Acetaminophen (Acetaminophen 325 Mg Tablet) 650 mg PO Q4HR PRN PRN Reason: Pain 1 to 4 Last Admin: 02/24/21 06:55 Dose: 650 mg Documented by: Albuterol (Albuterol Neb 2.5 Mg/3 Ml) 2.5 mg INH RTQ4H PRN PRN Reason: Wheezing Albuterol (Albuterol 1 Puff) 2 puffs INH RTQ4H PRN PRN Reason: Wheezing Last Admin: 02/25/21 07:44 Dose: 2 puffs Documented by: Apixaban (Apixaban 5 Mg Tablet) 5 mg PO BID [facility] Last Admin: 02/25/21 08:45 Dose: 5 mg Documented by: Cholecalciferol (Cholecalciferol 25 Mcg Tablet) 50 mcg PO DAILY [facility] Last Admin: 02/25/21 08:44 Dose: 50 mcg Documented by: Dexamethasone (Dexamethasone 10 Mg/Ml Vial) 6 mg IVP DAILY [facility] Last Admin: 02/25/21 08:50 Dose: 6 mg Documented by: Diphenoxylate HCl/Atropine (Diphenox/Atropine 2.5/0.025 Mg Tablet) 1 tab PO QID PRN PRN Reason: Diarrhea Last Admin: 02/24/21 00:02 Dose: 1 tab Documented by: Metoprolol Succinate (Metoprolol Succinate 25 Mg Tablet) 25 mg PO DAILY [facility] Last Admin: 02/25/21 08:44 Dose: 25 mg Documented by: Multivitamins (Multivitamin Tablet) 1 tab PO DAILYWM [facility] Last Admin: 02/25/21 08:44 Dose: 1 tab Documented by: Ondansetron HCl (Ondansetron Odt 4 Mg Tablet) 4 mg TL Q6HR PRN PRN Reason: Nausea / Vomiting Sodium Chloride (Sodium Chloride Flush 0.9% 10 Ml Syringe) 10 ml IVP PRN PRN PRN Reason: NEEDED PER PROVIDER ORDERS Last Admin: 02/24/21 14:07 Dose: 10 ml Documented by: Sodium Chloride (Sodium Chloride Flush 0.9% 10 Ml Syringe) 10 ml IVP 0100,0900,1700 [facility] Last Admin: 02/25/21 08:50 Dose: 10 ml Documented by: Albuterol Sulfate [Albuterol Sulfate Hfa] 2 puffs INH Q4H PRN 12/25/19 Apixaban [Eliquis] 5 mg PO BID 12/25/19 Metoprolol Succinate [Toprol Xl] 25 mg PO DAILY 12/25/19
[2021-02-25] MEDS: ACETAMINOPHEN 325 MG TABLET PO PRN (14:44)
[2021-02-25] MEDS ORDERED: ZINC OXIDE 20% OINT 30 GM TUBE TOP PRN (18:05)
[2021-02-26] MEDS: SODIUM CHLORIDE FLUSH 0.9% 10 ML SYRINGE IVP SCH ×2 (03:04→08:52)
[2021-02-26] MEDS: ALBUTEROL 1 PUFF INH PRN ×2 (07:28→11:26)
[2021-02-26] MEDS: METOPROLOL SUCCINATE 25 MG TABLET PO SCH (08:50)
[2021-02-26] MEDS: CHOLECALCIFEROL 25 MCG TABLET PO SCH (08:51)
[2021-02-26] MEDS: APIXABAN 5 MG TABLET PO SCH (08:51)
[2021-02-26] MEDS: MULTIVITAMIN TABLET PO SCH (08:51)
[2021-02-26] MEDS: DEXAMETHASONE 10 MG/ML VIAL IVP SCH (08:51)
[2021-02-26] MEDS ORDERED: guaiFENesin 600 MG TABLET PO SCH (09:00)
--- NOTE | 2021-02-26 13:05 | Discharge Plan ---
Discharge Plan Problem Reviewed?: Yes Disposition: Home Health Service Condition: Stable Prescriptions: Albuterol 2.5 mg INH RTQ4H PRN #100 neb PRN Reason: Wheezing guaiFENesin [Mucinex] 600 mg PO DAILY PRN #15 tablet PRN Reason: Cough Diet: Regular Activity Restrictions: Activity as Tolerated Shower Restrictions: No (fall precaution) Instruction Topics: COVID-19 [facility], COVID-[address] [facility] Department Statement, Nebulizer Use, Asthma Nebulizer Use Ch, Asthma Under Control Ch, Asthma Away Home Health Concerns: Covid 19 pneumonia Plan of Treatment: You were tested positive for Covid 19 pneumonia. After you were treated at hospital, You have a good and stable respiratory status on room air now. You may followup with [facility] and [facility] Covid 19 recommendations. Should you feel shortness of breathing or low O2 saturation, you may present ER or call 911 for help. You are also arranged home health PT/OT/home health Aide to help you. You are also prescribed Nebulizer machine and albuterol for you. You may followup with RT instruction to use it. Care Goals: Stabilization and improvement of your medical conditions Assessment: Discussed the care plan with you, answered your questions and you understood Additional Instructions or Follow Up instructions: You may follow-up with your PCP in 1 to 2 weeks, should your symptoms return or worsen, you may present to ER or call 911 for help Follow-Up Care: Home Health - PT, Home Health - OT No Smoking: If you smoke, Please STOP! Call for help.
--- NOTE | 2021-02-26 13:18 | DISCHARGE SUMMARY ---
Discharge Summary Admit Date: 02/23/21 Discharge Date: 02/26/21 Discharging Provider: Danilo Kumar Primary Care Provider: Perlita Zapata Condition at Discharge: Stable Discharge Disposition: Home Health Service Discharge Facility Name: home - DIAGNOSES Discharge Diagnoses with Status of Each Condition: (1) Respiratory failure with hypoxia stable/resolved. pt Had 93% oxygen saturation on room air. Patient walk around her room without respiratory distress. (2) Pneumonia due to COVID-19 virus stable. pt Had 93% oxygen saturation on room air. Patient has no respiratory distress on rest and exertion. Patient and her daughter refused to have remdesivir treatment In hospital. Patient may follow-up with [facility] for COVID-19 recommendations. (3) Atrial fibrillation Stable, continue home meds (4) Generalized weakness Patient had PT and OT evaluation and treatment in the hospital, patient was recommended to have home health PT and OT and home health aide. (5) Hyponatremia resolved. Patient refused to have lab test on today (6) History of coronary artery disease Stable. continue home meds. (7) hx of asthma stable. Patient is prescribed nebulizer machine (by RT on paper order) and albuterol solution to treat her asthma. (8)UTI stable, UA culture show positive for Klebsiella Oxytoca, but pt is asymptotic, no dysuria, and no fever, not elevated WBC. Patient was not treated with antibiotics in the hospital. - HPI History of Present Illness: refer from Ms. Sanchez's HPI on 02/23/21 Ms. Quintero is an 86 year old female with an extensive past medical history including afib (on Eliquis) who developed a cough and congestion approximately one week prior to . She has gotten progressively weaker. At baseline she walks with a walker due to "bone on bone" on her right knee, and she reports that just prior to admission she fell and was unable to get up due to her weakness. She called 911 and was brought to the ED. She reports that over the past week she has experienced fever, chills, myalgia, weakness, fatigue, a cough and congestion and thought she had pneumonia. She is unvaccinated against COVID 19. She tested positive for COVID in the ED. Denies shortness of breath, chest pain, or palpitations. Regarding her atrial fibrillation, she was diagnosed approximately 10 years ago and has been on Eliquis ever since. She is also s/p 4 vessel bypass in 2010 for coronary artery disease. She reports she has not taken her medication since she got sick, for a little over a week. She is concerned that she hasn't taken her anticoagulation during that time period given her risk for blood clots. On x-ray she was found to have COVID pneumonia with extensive bilateral infiltrates. She received monoclonal antibodies in the ER. Given her progr essive weakness in the setting of her COVID pneumonia and medical comorbidities the decision was made to admit her under observation for closer monitoring. After discussion with the Pt at bedside, she has elected to have a Do Not Resuscitate order placed today. She does not want chest compressions or intubation should her heart stop or her breathing worsen. "If my heart stops that is my sign it's my time to go." She is not currently hypoxic or short of breath. - ALLERGIES Allergies/Adverse Reactions: Allergies Allergy/AdvReac Type Severity Reaction Status Date / Time amoxicillin Allergy Unknown Verified 02/23/21 02:49 iodine Allergy Hives Verified 02/23/21 02:49 shellfish derived Allergy Hives Verified 02/23/21 02:49 lactose AdvReac Cramps Verified 02/23/21 02:49 - MEDICATIONS Home Medications: Ambulatory Orders Medication Instructions Recorded Confirmed Albuterol Sulfate [Albuterol 2 puffs INH Q4H PRN 12/25/19 02/23/21 Sulfate Hfa] Apixaban [Eliquis] 5 mg PO BID 12/25/19 02/23/21 Metoprolol Succinate [Toprol Xl] 25 mg PO DAILY 12/25/19 02/23/21 Albuterol 2.5 mg INH RTQ4H PRN #100 neb 02/26/21 guaiFENesin [Mucinex] 600 mg PO DAILY PRN #15 tablet 02/26/21 - PHYSICAL EXAM AT DISCHARGE General Appearance: positive: No acute distress, Alert. negative: Lethargic Eyes Bilateral: positive: Normal inspection, No lid inflammation ENT: positive: ENT inspection nml, No signs of dehydration. negative: Purulent nasal drainage Neck: positive: Nml inspection, Trachea midline. negative: Tracheal deviation Respiratory: positive: Chest non-tender, No respiratory distress. negative: Rales Cardiovascular: positive: Regular rate & rhythm. negative: Tachycardia, Bradycardia, Systolic murmur Peripheral Pulses: positive: 2+ Abdomen: positive: Non-tender, Nml bowel sounds, No distention. negative: Tenderness Back: positive: Nml inspection Skin: positive: Color nml, Warm, Dry. negative: Cyanosis Extremities: positive: Non-tender, Full ROM, Nml appearance. negative: Calf tenderness Neurologic/Psychiatric: positive: Oriented x3, Motor nml, Sensation nml. negative: Weakness, Sensory loss, Facial droop, Slurred/abnml speech, Depressed mood/affect - LABS Result Diagrams: 02/25/21 04:38 02/25/21 04:38 - SEPSIS Current Stage of Sepsis: Ruled out - FOLLOW UP Follow Up: You were tested positive for Covid 19 pneumonia. After you were treated at hospital, You have a good and stable respiratory status on room air now. You may followup with [facility] Covid 19 recommendations. Should you feel shortness of breathing or low O2 saturation, you may present ER or call 911 for help. You are also arranged home health PT/OT/home health Aide to help you. You are also prescribed Nebulizer machine and albuterol for you. You may followup with RT instruction to use it. You may follow-up with your PCP in 1 to 2 weeks, should your symptoms return or worsen, you may present to ER or call 911 for help - TIME SPENT Time Spent in Discharge (Minutes): 30
[2021-02-26 14:32] VITALS: BP 177/85
== END 2021-02-26 14:05 | disposition home health service (06) | DRG 177 ==
LOC: ED 02:33 → MS3 11:59 → OBSVTOIN 02-24 10:54
PROVIDERS: ADMIT Registered Nurse; ATTEND Nurse Practitioner Gerontology
DX: U07.1 COVID-19 (principal); J12.82 Pneumonia due to coronavirus disease 2019; J96.01 Acute respiratory failure with hypoxia; E87.1 Hypo-osmolality and hyponatremia; N39.0 Urinary tract infection, site not specified; I48.0 Paroxysmal atrial fibrillation; Z91.81 History of falling; Z79.01 Long term (current) use of anticoagulants; J45.909 Unspecified asthma, uncomplicated; R53.1 Weakness; Z79.899 Other long term (current) drug therapy; I25.10 Atherosclerotic heart disease of native coronary artery without angina pectoris; Z95.1 Presence of aortocoronary bypass graft; I25.2 Old myocardial infarction; B96.89 Other specified bacterial agents as the cause of diseases classified elsewhere; Z66 Do not resuscitate; I10 Essential (primary) hypertension; K59.00 Constipation, unspecified
CPT/HCPCS: 36415; 71045; 80048; 80053; 81001; 82306; 83605; 83690; 83735; 83880; 85025; 87040; 87070; 87077; 87086; 87181; 87205; 87631; 94640; 96365; 96375; 97161; 97165; 99283; 99285; A9270; G0378; J7040; J7120; M0243; Q0244; 0202U; 81003

== ENCOUNTER 2021-03-06 11:40 | Outpatient (CLI) | payer MEDICARE, MEDICAID ==
[2021-03-06 12:10] LABS: BASOPHILS # (AUTO) 0.1 10^3/uL (0.0-0.1); BASOPHILS % (AUTO) 0.9 %; EOSINOPHILS # (AUTO) 0.1 10^3/uL (0.0-0.7); HCT - HEMATOCRIT 29.8 % (37.0-47.0); HGB - HEMOGLOBIN 9.6 g/dL (12.0-16.0); LYMPHOCYTES # (AUTO) 1.3 10^3/uL (1.5-3.5); LYMPHOCYTES % (AUTO) 12.6 %; MEAN CORPUSCULAR HEMOGLOBIN 32.7 pg (27.0-31.0); MEAN CORPUSCULAR HGB CONC 32.2 g/dL (32.0-36.0); MEAN CORPUSCULAR VOLUME 101.4 fL (81.0-99.0); MEAN PLATELET VOLUME 10.4 fL (7.9-10.8); MONOCYTES # (AUTO) 0.8 10^3/uL (0.0-1.0); MONOCYTES % (AUTO) 7.8 %; NEUTROPHILS % (AUTO) 75.9 %; NRBC ABSOLUTE COUNT (AUTO) 0.02 x10^3/uL; NUCLEATED RED BLOOD CELLS AUTO 0.2 /100WBC; PLT - PLATELET COUNT 279 10^3/uL (130-450); RED BLOOD COUNT 2.94 10^6/uL (4.20-5.40); WHITE BLOOD COUNT 10.5 x10^3/uL (4.8-10.8)
[2021-03-06 12:26] LABS: ALBUMIN 3.1 g/dL (3.2-5.5); ALBUMIN/GLOBULIN RATIO 0.7 (1.0-2.2); BILIRUBIN,TOTAL 1.7 mg/dL (0.2-1.0); CALCIUM 8.9 mg/dL (8.5-10.3); CREATININE 0.9 mg/dL (0.4-1.0); TOTAL PROTEIN 7.3 g/dL (6.7-8.2)
[2021-03-06 12:41] LABS: THYROID STIMULATING HORMONE 3.16 uIU/mL (0.34-5.60)
[2021-03-06 12:53] LABS: BILIRUBIN,URINE NEGATIVE (NEGATIVE); GLUCOSE, URINE (UA) NEGATIVE (NEGATIVE); KETONES,URINE (UA) NEGATIVE (NEGATIVE); LEUKOCYTE ESTERASE, URINE NEGATIVE (NEGATIVE); NITRITE,URINE NEGATIVE (NEGATIVE); OCCULT BLOOD,URINE NEGATIVE (NEGATIVE); PROTEIN,URINE TRACE mg/dL (NEGATIVE); UROBILINOGEN,URINE 0.2 (NORMAL) E.U./dL (NORMAL)
[2021-03-06 13:12] LABS: CLARITY,URINE CLEAR (CLEAR); RBC,URINE None Seen /HPF (0-5); WBC CLUMPS,URINE NONE SEEN
[2021-03-06 13:13] LABS: BACTERIA,URINE None Seen /HPF (None Seen); EPITHELIAL CELLS,UR None Seen /HPF (<= Few); SQUAMOUS EPITHELIAL CELL,UR MOD Squamous (<= Few)
== END 2021-03-06 11:41 | disposition home or self-care (01) ==
LOC: LAB 11:40
PROVIDERS: ATTEND Internal Medicine
DX: J18.9 Pneumonia, unspecified organism (principal); R06.00 Dyspnea, unspecified; I50.9 Heart failure, unspecified; I48.91 Unspecified atrial fibrillation; R53.1 Weakness; Z79.899 Other long term (current) drug therapy
CPT/HCPCS: 36415; 80053; 81001; 82607; 83880; 84443; 84478; 85025; 87086

== ENCOUNTER 2021-05-09 02:43 | Inpatient (IN) | payer MEDICARE, MEDICAID ==
[2021-05-09 03:06] LABS: BASOPHILS # (AUTO) 0.1 10^3/uL (0.0-0.1); BASOPHILS % (AUTO) 0.5 %; EOSINOPHILS # (AUTO) 0.1 10^3/uL (0.0-0.7); EOSINOPHILS % (AUTO) 0.4 %; HCT - HEMATOCRIT 38.5 % (37.0-47.0); HGB - HEMOGLOBIN 12.6 g/dL (12.0-16.0); LYMPHOCYTES % (AUTO) 12.1 %; MEAN CORPUSCULAR HEMOGLOBIN 32.9 pg (27.0-31.0); MEAN CORPUSCULAR HGB CONC 32.7 g/dL (32.0-36.0); MEAN CORPUSCULAR VOLUME 100.5 fL (81.0-99.0); MEAN PLATELET VOLUME 12.3 fL (7.9-10.8); MONOCYTES # (AUTO) 0.2 10^3/uL (0.0-1.0); MONOCYTES % (AUTO) 1.4 %; NEUTROPHILS # (AUTO) 14.1 10^3/uL (1.5-6.6); NEUTROPHILS % (AUTO) 85.3 %; PLT - PLATELET COUNT 215 10^3/uL (130-450); RED BLOOD COUNT 3.83 10^6/uL (4.20-5.40); RED CELL DISTRIBUTION WIDTH 15.3 % (12.0-15.0); WHITE BLOOD COUNT 16.6 x10^3/uL (4.8-10.8)
[2021-05-09 03:07] LABS: GASTROCCULT POSITIVE (Negative)
[2021-05-09 03:23] LABS: ALBUMIN 4.1 g/dL (3.2-5.5); BILIRUBIN,TOTAL 2.2 mg/dL (0.2-1.0); CALCIUM 9.8 mg/dL (8.5-10.3); CREATININE 0.9 mg/dL (0.4-1.0); POTASSIUM 3.4 mmol/L (3.5-5.0); TOTAL PROTEIN 8.1 g/dL (6.7-8.2)
[2021-05-09] MEDS ORDERED: ONDANSETRON 4 MG/2 ML VIAL IVP STA ×2 (03:24→06:39)
[2021-05-09] MEDS ORDERED: SODIUM CHLORIDE 0.9% 1,000 ML IV STA (03:24)
[2021-05-09] MEDS ORDERED: MORPHINE 2 MG/ML CARPUJECT IVP STA ×3 (03:24→06:28)
--- NOTE | 2021-05-09 03:25 | ED Physician Documentation ---
PD HPI NVD - Stated complaint Stated Complaint: VOMITING,ABD PX - Chief complaint Chief Complaint: Abd Pain - History obtained from History obtained from: Patient - History of Present Illness Timing - onset: Enter time (1400), Yesterday Timing - duration: Hours Timing - details: Abrupt onset, Still present Associated symptoms: Abdominal pain, Hematemesis, Near syncope / syncope Improved by: Laying still, Vomiting Similar symptoms before: Has not had sx before Recently seen: Admitted (in February for COVID has recovered.) - Additonal information Additional information: 86-year-old female with a history of atrial fibrillation who is on Eliquis is s/p CABG with a history of coronary artery disease and she has had COVID in February of last year. Today she is presenting with acute onset of vomiting and diarrhea that started about 2:00 in the afternoon without reason. She is developed abdominal pain associated with this. She has had some blood in her vomitus. Review of Systems Constitutional: denies: Fever Eyes: denies: Decreased vision Ears: denies: Ear pain Nose: denies: Congestion Throat: denies: Sore throat Cardiac: denies: Chest pain / pressure, Palpitations Respiratory: denies: Dyspnea GI: reports: Abdominal Pain, Nausea, Vomiting, Diarrhea, Hematemesis : denies: Dysuria, Frequency Skin: denies: Rash Musculoskeletal: denies: Neck pain, Back pain, Extremity pain Neurologic: reports: Generalized weakness. denies: Focal weakness, Numbness PD PAST MEDICAL HISTORY - Past Medical History Past Medical History: Yes Cardiovascular: Hypertension, Coronary artery disease, MS, Atrial fibrillation Respiratory: Asthma Neuro: None Endocrine/Autoimmune: None GI: None SPINDLE SANDER: None : Kidney stones HEENT: None Psych: Anxiety Musculoskeletal: Osteoarthritis, Other Derm: Other - Past Surgical History Past Surgical History: Yes General: Cholecystectomy, Other /SPINDLE SANDER: Hysterectomy Cardiovascular: CABG HEENT: Tonsil/Adenoidectomy - Present Medications Home Medications: Ambulatory Orders Medication Instructions Recorded Confirmed Albuterol Sulfate [Albuterol 2 puffs INH Q4H PRN 12/25/19 05/09/21 Sulfate Hfa] Apixaban [Eliquis] 5 mg PO BID 12/25/19 05/09/21 Metoprolol Succinate [Toprol Xl] 25 mg PO DAILY 12/25/19 05/09/21 Albuterol 2.5 mg INH RTQ4H PRN #100 neb 02/26/21 guaiFENesin [Mucinex] 600 mg PO DAILY PRN #15 tablet 02/26/21 - Allergies Allergies/Adverse Reactions: Allergies Allergy/AdvReac Type Severity Reaction Status Date / Time amoxicillin Allergy Unknown Verified 05/09/21 03:00 iodine Allergy Hives Verified 05/09/21 03:00 shellfish derived Allergy Hives Verified 05/09/21 03:00 lactose AdvReac Cramps Verified 05/09/21 03:00 - Social History Does the pt smoke?: No Smoking Status: Never smoker Does the pt drink ETOH?: No Does the pt have substance abuse?: No - Immunizations Immunizations are current?: Yes - POLST Patient has POLST: No POLST Status: DNR (Discussed with Pt, she elected to be DNR status) PD ED PE NORMAL - Vitals Vital signs reviewed: Yes - General General: Alert and oriented X 3, Well developed/nourished, Other (pale appearing female with blood around her mouth is shivering still pleasant. ) - HEENT HEENT: Atraumatic, PERRL, EOMI, Other (dry mucous membranes ) - Neck Neck: Supple, no meningeal sign, No bony TTP - Cardiac Cardiac: RRR, No murmur - Respiratory Respiratory: No respiratory distress, Clear bilaterally - Abdomen Abdomen: Soft, Other (large panus. generally tender without reproducible focal tenderness. ) - Back Back: No CVA TTP, No spinal TTP - Derm Derm: Normal color, Warm and dry, No rash - Extremities Extremities: No deformity, Other (pitting edma to the ankles ) - Neuro Neuro: Alert and oriented X 3, ophthalmic technologist 2-12 intact, No motor deficit, No sensory deficit, Normal speech Eye Opening: Spontaneous Motor: Obeys Commands Verbal: Oriented GCS Score: 15 - Psych Psych: Normal mood, Normal affect Results - Vitals Vitals: Vital Signs - 24 hr 05/09/21 05/09/21 05/09/21 02:47 03:04 03:36 Temperature 36.3 C L 36.0 C L Heart Rate 87 82 93 Respiratory 18 26 H 17 Rate Blood Pressure 133/93 H 160/79 H 126/61 O2 Saturation 100 100 97 05/09/21 05/09/21 05/09/21 03:48 03:59 04:46 Temperature Heart Rate 72 79 Respiratory 20 25 H Rate Blood Pressure 126/61 101/85 H O2 Saturation 93 100 100 05/09/21 05/09/21 05/09/21 05:10 05:44 06:16 Temperature 35.8 C L Heart Rate 81 88 85 Respiratory 21 20 23 Rate Blood Pressure 135/85 H 141/65 H 149/66 H O2 Saturation 100 100 100 05/09/21 06:29 Temperature Heart Rate 81 Respiratory 20 Rate Blood Pressure 149/66 H O2 Saturation 100 Oxygen O2 Source [] Room air O2 Source Nasal cannula Oxygen Flow Rate 2 - EKG (time done) 0306 Rate: Rate (enter#) (82) Rhythm: NSR Intervals: Prolonged QT, LBBB (incomplete) Compare to prior EKG: Changed from prior EKG ([facility] 12-24-2019 QT is prolonged. ) Computer interpretation: Agree with computer - Labs Labs: Laboratory Tests 05/09/21 05/09/21 05/09/21 03:01 03:01 03:01 WBC 16.6 H RBC 3.83 L Hgb 12.6 Hct 38.5 MCV 100.5 H MCH 32.9 H MCHC 32.7 RDW 15.3 H Plt Count 215 MPV 12.3 H Neut # (Auto) 14.1 H Lymph # (Auto) 2.0 [place] # (Auto) 0.2 Eos # (Auto) 0.1 Baso # (Auto) 0.1 Absolute Nucleated RBC 0.00 Nucleated RBC % 0.0 Sodium 140 Potassium 3.4 L Chloride 100 L Carbon Dioxide 27 Anion Gap 13.0 BUN 25 H Creatinine 0.9 Estimated GFR (MDRD) 60 L Glucose 210 H Calcium 9.8 Magnesium Total Bilirubin 2.2 H AST 290 H ALT 119 H Alkaline Phosphatase 61 Total Protein 8.1 Albumin 4.1 Globulin 4.0 Albumin/Globulin Ratio 1.0 Lipase 720 H Urine Color Urine Clarity Urine pH Ur Specific [place] Urine Protein Urine Glucose (UA) Urine Ketones Urine Occult Blood Urine Nitrite Urine Bilirubin Urine Urobilinogen Ur Leukocyte Esterase Urine RBC Urine WBC Ur Squamous Epith Cells Urine Bacteria Ur Microscopic Review Urine Culture Comments Nasal Adenovirus (PCR) Nasal B. parapertussis DNA (PCR) Nasal Coronavir 229E PCR Nasal Coronavir HKU1 PCR Nasal Coronavir NL63 PCR Nasal Coronavir OC43 PCR Nasal Enterovir/Rhinovir PCR Nasal Influenza B PCR Nasal Influenza A PCR Nasal Parainfluen 1 PCR Nasal Parainfluen 2 PCR Nasal Parainfluen 3 PCR Nasal Parainfluen 4 PCR Nasal RSV (PCR) Nasal B.pertussis DNA PCR Nasal C.pneumoniae (PCR) [place] Human Metapneumo PCR Nasal M.pneumoniae (PCR) Nasal SARS-CoV-2 (PCR) Gastric Fluid pH 2.0 Gastric Occult Blood POSITIVE A Blood Type Blood Type Recheck Antibody Screen 05/09/21 05/09/21 05/09/21 03:01 03:01 04:10 WBC RBC Hgb Hct MCV MCH MCHC RDW Plt Count MPV Neut # (Auto) Lymph # (Auto) [place] # (Auto) Eos # (Auto) Baso # (Auto) Absolute Nucleated RBC Nucleated RBC % Sodium Potassium Chloride Carbon Dioxide Anion Gap BUN Creatinine Estimated GFR (MDRD) Glucose Calcium Magnesium 2.0 Total Bilirubin AST ALT Alkaline Phosphatase Total Protein Albumin Globulin Albumin/Globulin Ratio Lipase Urine Color YELLOW Urine Clarity CLEAR Urine pH 7.5 Ur Specific [place] 1.020 Urine Protein NEGATIVE Urine Glucose (UA) NEGATIVE Urine Ketones NEGATIVE Urine Occult Blood NEGATIVE Urine Nitrite POSITIVE H Urine Bilirubin NEGATIVE Urine Urobilinogen 1 (NORMAL) Ur Leukocyte Esterase NEGATIVE Urine RBC None Seen Urine WBC 0-3 Ur Squamous Epith Cells NONE SEEN Urine Bacteria Many H Ur Microscopic Review INDICATED Urine Culture Comments INDICATED Nasal Adenovirus (PCR) Nasal B. parapertussis DNA (PCR) Nasal Coronavir 229E PCR Nasal Coronavir HKU1 PCR Nasal Coronavir NL63 PCR Nasal Coronavir OC43 PCR Nasal Enterovir/Rhinovir PCR Nasal Influenza B PCR Nasal Influenza A PCR Nasal Parainfluen 1 PCR Nasal Parainfluen 2 PCR Nasal Parainfluen 3 PCR Nasal Parainfluen 4 PCR Nasal RSV (PCR) Nasal B.pertussis DNA PCR Nasal C.pneumoniae (PCR) [place] Human Metapneumo PCR Nasal M.pneumoniae (PCR) Nasal SARS-CoV-2 (PCR) Gastric Fluid pH Gastric Occult Blood Blood Type Blood Type Recheck O POSITIVE Antibody Screen 05/09/21 05/09/21 04:43 05:00 WBC RBC Hgb Hct MCV MCH MCHC RDW Plt Count MPV Neut # (Auto) Lymph # (Auto) [place] # (Auto) Eos # (Auto) Baso # (Auto) Absolute Nucleated RBC Nucleated RBC % Sodium Potassium Chloride Carbon Dioxide Anion Gap BUN Creatinine Estimated GFR (MDRD) Glucose Calcium Magnesium Total Bilirubin AST ALT Alkaline Phosphatase Total Protein Albumin Globulin Albumin/Globulin Ratio Lipase Urine Color Urine Clarity Urine pH Ur Specific [place] Urine Protein Urine Glucose (UA) Urine Ketones Urine Occult Blood Urine Nitrite Urine Bilirubin Urine Urobilinogen Ur Leukocyte Esterase Urine RBC Urine WBC Ur Squamous Epith Cells Urine Bacteria Ur Microscopic Review Urine Culture Comments Nasal Adenovirus (PCR) NOT DETECTED Nasal B. parapertussis DNA (PCR) NOT DETECTED Nasal Coronavir 229E PCR NOT DETECTED Nasal Coronavir HKU1 PCR NOT DETECTED Nasal Coronavir NL63 PCR NOT DETECTED Nasal Coronavir OC43 PCR NOT DETECTED Nasal Enterovir/Rhinovir PCR NOT DETECTED Nasal Influenza B PCR NOT DETECTED Nasal Influenza A PCR NOT DETECTED Nasal Parainfluen 1 PCR NOT DETECTED Nasal Parainfluen 2 PCR NOT DETECTED Nasal Parainfluen 3 PCR NOT DETECTED Nasal Parainfluen 4 PCR NOT DETECTED Nasal RSV (PCR) NOT DETECTED Nasal B.pertussis DNA PCR NOT DETECTED Nasal C.pneumoniae (PCR) NOT DETECTED [place] Human Metapneumo PCR NOT DETECTED Nasal M.pneumoniae (PCR) NOT DETECTED Nasal SARS-CoV-2 (PCR) NOT DETECTED Gastric Fluid pH Gastric Occult Blood Blood Type O POSITIVE Blood Type Recheck Antibody Screen NEGATIVE - Rads (name of study) CT Radiology: Prelim report reviewed (Impression: 1. Acute pancreatitis with peripancreatic phlegmon. No pseudocyst formation is seen. Bibasilar patchy areas of peripheral consolidation most consistent with a multifocal pneumonia. Specifically, the pattern of disease suggest pulmonary involvement by COVID-19 and clinical correlation), Final report received (COVID-19 and clinical correlation is necessary. A small left pleural effusion is present.), EMP read indepedently, See rad report Procedures - IVC sono (time) 0320 Bedside IVC sono: IVC measures (cm) (1.45), Euvolemia (close) PD MEDICAL DECISION MAKING - ED course Complexity details: reviewed old records, reviewed results, re-evaluated patient, considered differential, d/w patient, d/w pre sales technical consultant (06:29 Dr. Rizo has graciously agreed to host this unfortunate lady in the hospital. ) ED course: 86 y/o female with afib on eliquis has developed vomiting with diarrhea and she has gastrocult positive emesis. She is not volume depleted and has normal H&H to start. Her IVC is 1.45cm nearly normal and I suspect she usually is larger than this as she currently has swollen feet. Fluid is administered at 150ml per hour and the patient is administered IV morphine and zofran. She has some improvement in her pain with the morphine and improvement in her nausea. She is still in significant pain and further pain medication is administered. CT scan of the abdomen pelvis shows acute pancreatitis with a pancreatic phlegmon. The patient's lipase is 720. She requires further morphine with improvement. Departure - Departure Disposition: [facility] DC/[facility] Clinical Impression: Pancreatitis Qualifiers: Chronicity: acute Pancreatitis type: unspecified pancreatitis type Acute pancreatitis complication: unspecified Qualified Code(s): K85.90 - Acute pancreatitis without necrosis or infection, unspecified
[2021-05-09] MEDS ORDERED: MAGNESIUM SULFATE 2 GRAM 2 GM/50 ML BAG IV ONE (03:27)
[2021-05-09 04:24] LABS: BILIRUBIN,URINE NEGATIVE (NEGATIVE); CLARITY,URINE CLEAR (CLEAR); GLUCOSE, URINE (UA) NEGATIVE (NEGATIVE); KETONES,URINE (UA) NEGATIVE (NEGATIVE); LEUKOCYTE ESTERASE, URINE NEGATIVE (NEGATIVE); NITRITE,URINE POSITIVE (NEGATIVE); OCCULT BLOOD,URINE NEGATIVE (NEGATIVE); PH,URINE 7.5 PH (5.0-7.5); PROTEIN,URINE NEGATIVE (NEGATIVE); UROBILINOGEN,URINE 1 (NORMAL) E.U./dL (NORMAL)
[2021-05-09 04:26] LABS: BACTERIA,URINE Many /HPF (None Seen); RBC,URINE None Seen /HPF (0-5); SQUAMOUS EPITHELIAL CELL,UR NONE SEEN (<= Few); WBC,URINE 0-3 /HPF (0-5)
[2021-05-09 05:59] LABS: B. PARAPERTUSSIS- RESP PCR PAN NOT DETECTED; B. PERTUSSIS- RESP PCR PANEL NOT DETECTED; C. PNEUMONIAE- RESP PCR PANEL NOT DETECTED; CORONAVIRUS 229E-RESP PCR NOT DETECTED; CORONAVIRUS HKU1-RESP PCR NOT DETECTED; CORONAVIRUS NL63-RESP PCR NOT DETECTED; CORONAVIRUS OC43-RESP PCR NOT DETECTED; HUMAN METAPNEUMOVIRUS NOT DETECTED; INFLUENZA A- RESP PCR PANEL NOT DETECTED; INFLUENZA B - RESP PCR PANEL NOT DETECTED; M. PNEUMONIAE- RESP PCR PANEL NOT DETECTED; PARAINFLUENZA VIRUS 1 NOT DETECTED; PARAINFLUENZA VIRUS 2 NOT DETECTED; PARAINFLUENZA VIRUS 3 NOT DETECTED; PARAINFLUENZA VIRUS 4 NOT DETECTED; RHINOVIRUS/ENTEROVIRUS NOT DETECTED; RSV- RESP PCR PANEL NOT DETECTED; SARS-CoV-2 -RESP PCR PANEL NOT DETECTED
--- NOTE | 2021-05-09 07:53 | HISTORY & PHYSICAL EXAMINATION ---
Chief Complaint - Chief Complaint Chief Complaint: Abdominal pain with nausea and vomiting History of Present Illness - Admitted From Admitted From:: [facility] Emergency Department - History Obtained From Records Reviewed: [facility] History obtained from: Patient and [employer] Exam Limitations: Patient is drowsy and recieved morphine in ED - History of Present Illness HPI Comment/Other: 86 year old female presented to the hospital with a chief complaint of nausea, vomiting, and abdominal pain for 1 day. The pain is described as "intense, 10/10" that feels "similar to when I had my gallbladder removed". Pain is made w orse with movement and improves with rest. She currently denies nausea and reports that her pain is well controlled, 0/10. In the ED she had an episode of coffee ground emesis that was positive for occult blood. She denies previous episodes with coffee ground emesis or black/ tarry stools. CT of the abdomen showed "acute pancreatitis without pseudocyst or abscess". Admission [place]'s Criteria is 4 and her Lipase is 720. Her past medical history includes atrial fibrillation for 10 years which she takes Eliquis and Metroprol. She also reports asthma which is well controlled with an as needed Albuterol inhaler, last use was several weeks ago. 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 She was recently hospitalized for 4 days with [facility] in January,. History - Past Medical History Cardiovascular: reports: Hypertension, Coronary artery disease, [place], Atrial fibrillation Respiratory: reports: Asthma Neuro: reports: None Endocrine/Autoimmune: reports: None GI: reports: Other (Cholecystitis) POTTERY STRIPER: reports: None : reports: Kidney stones HEENT: reports: None Psych: reports: Anxiety Musculoskeletal: reports: Osteoarthritis Derm: reports: Other MRSA Hx?: No - Past Surgical History General: reports: Cholecystectomy /POTTERY STRIPER: reports: Hysterectomy Cardiovascular: reports: CABG HEENT: reports: Tonsil/Adenoidectomy - Family & Social History Family History: Mother: , Cancer, Father: , Cancer, Sister: , CAD, Brother: Alive and Well Family History Comment/Other: Her parents of old age. Her children are healthy. Living arrangement: At home, Other (Senior Appartment) Living Situation: Alone, Other Social History Notes: She lives alone across the [address] in the [facility]. 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 After that she ran a [employer] here in [place]. She has 3 children who all live in [place]. She has 4 grandchildren. She does not smoke or use tobacco products, does not drink alcohol, and denies use of marijuana or illicit drugs such as meth, heroin or cocaine. - Substance History Use: Uses substance without health or social issues: NONE - POLST Patient has POLST: No POLST Status: DNR (Discussed with Pt, she elected to be DNR status) Meds/Allgy - Home Medications Home Medications: Ambulatory Orders Medication Instructions Recorded Confirmed Albuterol Sulfate [Albuterol 2 puffs INH Q4H PRN 12/25/19 05/09/21 Sulfate Hfa] Apixaban [Eliquis] 5 mg PO BID 12/25/19 05/09/21 Metoprolol Succinate [Toprol Xl] 25 mg PO DAILY 12/25/19 05/09/21 - Allergies Allergies/Adverse Reactions: Allergies Allergy/AdvReac Type Severity Reaction Status Date / Time amoxicillin Allergy Hives Verified 05/09/21 14:07 iodine Allergy Hives Verified 05/09/21 03:00 shellfish derived Allergy Hives Verified 05/09/21 03:00 lactose AdvReac Cramps Verified 05/09/21 03:00 Review of Systems - Constitutional Constitutional: reports: Poor appetite. denies: Fever, Chills, Malaise - Eyes Eyes: reports: Corrective lenses (Nearsighted and farsighted) - Ears, Nose & Throat Ears, Nose & Throat: reports: Other (dry mouth, broken and missing teeth). denies: Hearing aids, Nasal discharge, Dentures - Cardiovascular Cariovascular: reports: Irregular heart rate. denies: Palpitations, Chest pain, Edema, Syncope - Respiratory Respiratory: denies: Cough, Sputum production, SOB at rest - Gastrointestinal Gastrointestinal: reports: Abdominal pain, Nausea, Vomiting, Coffee grounds emesis. denies: Change in bowel habits, Black stools, Bloody stools - Genitourinary Genitourinary: reports: Incontinence. denies: Dysuria, Frequency, Urgency, Flank pain - Musculoskeletal Musculoskeletal: reports: Stiffness, Joint pain (right knee) - Integumentary Integumentary: denies: Rash, Pruritis, Lesions - Neurological Neurological: denies: Numbness, Memory problems - Psychiatric Psychiatric: reports: Anxiety - Endocrine Endocrine: denies: Polyuria, Polydypsia - Hematologic/Lymphatic Hematologic/Lymphatic: reports: Bruising Prior Level of Functionality: Patient reports living independently and using a wheeled walker for ambulation. She is able to prepare meals and preform activities of daily living. Exam - Vital Signs Reviewed Vital Signs: Yes Vital Signs: Vital Signs x48h Temp Pulse Resp BP Pulse Ox 05/09/21 07:33 36.8 C 85 16 117/50 L 95 05/09/21 06:54 36.9 C 89 24 142/58 H 95 05/09/21 06:29 81 20 149/66 H 100 05/09/21 06:16 85 23 149/66 H 100 05/09/21 05:44 88 20 141/65 H 100 05/09/21 05:10 35.8 C L 81 21 135/85 H 100 05/09/21 04:46 79 25 H 101/85 H 100 05/09/21 03:59 72 20 126/61 100 05/09/21 03:48 93 05/09/21 03:36 36.0 C L 93 17 126/61 97 05/09/21 03:04 82 26 H 160/79 H 100 05/09/21 02:47 36.3 C L 87 18 133/93 H 100 - Physical Exam General Appearance: positive: No acute distress, Other (Drowsy) Eyes Bilateral: positive: Normal inspection, PERRL, EOMI ENT: positive: Dry mucous membranes Neck: positive: Nml inspection, Thyroid nml, No JVD, Trachea midline Respiratory: positive: Chest non-tender, No respiratory distress, Breath sounds nml (Clear bilateral breath sounds to auscultation). negative: Wheezes, Rales, Rhonchi Cardiovascular: positive: No murmur, Irregularly irregular Peripheral Pulses: positive: 2+ Abdomen: positive: Nml bowel sounds, Tenderness, Other (Protuberant. 5cm soft, reducible non-tender mass to right upper quadrant.) Back: positive: Nml inspection Skin: positive: Warm, Dry, Other (Fungal rash to bilateral groin. Petechiae to left groin.) Extremities: positive: Non-tender, Full ROM, Nml appearance, Pedal edema (2+) Neurologic/Psychiatric: positive: Oriented x3, Mood/affect nml, Other (Drowsy and forgetful.) Conclusion/Plan - Problem List (1) Pancreatitis Conclusion/Plan: Patient presented to ED today complaining of nausea, vomiting, and abdominal pain for 1 day. She reports pain is similar to when she had cholecystitis. Abd CT showed "Pancreas is edematous with peripancreatic phlegmon consistent with acute pancreatits. No pseudocyst or abscess present". Initial Lipase is 720, white blood cell count 16.6, Glucose 210, AST 290, and LDH 271. [place]'s criteria calculates a 15% predicted mortality. Patient had a Laparoscopic cholecystectomy in 2019. She denies alcohol use or liver disease. Plan: Order triglycerides to rule out hypertriglyceridemia. Hydrate with NS at 150ml/hr. Manage pain with prn Oxycodone and Dilaudid. Manage nausea and vomiting with prn Zofran. NPO until anorexia and pain resolves. Monitor lipase level for trends. Determine Chuy's Criteria again at 48 hours. Qualifiers: Chronicity: acute Pancreatitis type: unspecified pancreatitis type Acute pancreatitis complication: unspecified Qualified Code(s): K85.90 - Acute pancreatitis without necrosis or infection, unspecified (2) Leukocytosis Conclusion/Plan: Patient has elevated white blood cell on admission at 16. She is afebrile and denies chills. Urine analysis was positive for nitrites and bacteria. Patient reports overflow incontinence and denies urgency, frequency, or dysuria. Plan: Obtain blood cultures and a urine culture. Begin empirical antibiotics with IV Rocephin due to allergy to Amoxicillin. Adjust antibiotics according to sensitivity. (3) GI bleed Conclusion/Plan: Suspected GI bleed. Patient reports nausea and vomiting for 1 day. She had a e pisode of coffee ground emesis in the ED and gastric output was occult blood positive. Plan: Keep diet NPO to allow bowel rest. Start PPI. Monitor Hbg and if < 7 or actively bleeding, will transfuse and consult surgery for potential EGD. Hold Eliquis. (4) Atrial fibrillation Conclusion/Plan: Patient has a history of atrial fibrillation and takes Metoprolo 25mg PO daily and Eliquis 5mg PO twice daily. She denies palpitations, chest pain, syncope, or dyspnea. Plan: Resume Lopressor for rate control. Hold Eliquis due to coffee ground emesis on admission. panel monitor while hospitalized. Qualifiers: Atrial fibrillation type: paroxysmal Qualified Code(s): I48.0 - Paroxysmal atrial fibrillation (5) HTN (hypertension) Conclusion/Plan: Patient has a history of hypertension and takes Metoprolol succinate 25mg Po daily. Her SBP is ranging 110-140s. Plan: Resume Metoprolol. Continue to monitor blood pressure and treat as needed. (6) History of coronary artery disease Conclusion/Plan: Patient had a quadruple vessel CABG in 2009. She takes Metoprolol 25mg PO daily and Eliquis 5mg PO twice daily. Plan: Resume home Metoprolol. Hold Eliquis due to coffee ground emesis on admission. - Lab Results Fish Bones: 05/09/21 03:01 05/09/21 03:01 Core Measures - DVT/VTE - Prophylaxis VTE/DVT Device ordered at admit?: Yes
--- NOTE | 2021-05-09 08:12 | CT Report ---
PROCEDURE: CT abdomen and pelvis without contrast INDICATIONS: abdominal pain/vomiting TECHNIQUE: Noncontrast 5 mm thick sections acquired from the diaphragms to the symphysis. 5 mm delilah nal and sagittal reformats were then performed. For radiation dose reduction, the following was used : automated exposure control, adjustment of mA and/or kV according to patient size. COMPARISON: 07/12/2012 FINDINGS: Lower thorax: Heart size is enlarged. There is a small left basal pleural effusion and mild bibasilar atelectasis and or infiltrate. Liver: Normal in size and attenuation. No contour deformity present. Biliary system: No calcified cholelithiasis or pericholecystic inflammation. No evidence of bile du ct dilatation. Pancreas: Pancreas is edematous with peripancreatic phlegmon consistent with acute pancreatitis. No p seudocyst or abscess present. No free air or free fluid. Spleen: Normal in size and density. Adrenals: Normal morphology and density. Reproductive system: Unremarkable as visualized. Urinary system: Normal renal size and attenuation. No renal calculi, hydronephrosis, or solid mass p resent. Urinary bladder unremarkable. Gastrointestinal system: Gastric lap band noted in place with associated reservoir and tubing intact. No obstruction. Appendix: No findings to suggest acute appendicitis. Peritoneal spaces: No mesenteric or retroperitoneal adenopathy. No free air. No free fluid. Vasculature: Atherosclerotic calcification of the abdominal aorta and smaller visceral vessels withou t evidence of aneurysm. Musculoskeletal: Normal bone mineralization. No acute fractures. Abdominal wall intact without cookie dence of ventral or inguinal hernias. Multilevel degenerative disc disease and arthropathy in the lum bar spine results in moderate to severe central stenosis at L3-4 IMPRESSION: 1. Acute pancreatitis without pseudocyst or abscess. 2. Small left pleural effusion and bibasilar atelectasis and or infiltrate. 3. Gastric lap band, aortic atherosclerosis, degenerative disc disease and arthropathy. Note: Final report is concordant with preliminary report provided by [facility]) Reviewed by: Anand Shafer MD on 05/09/2021 7:10 AM [place] Approved by: Anand Shafer MD on 05/09/2021 7:10 AM [place] Station ID: [id number]
[2021-05-09] MEDS: PANTOPRAZOLE 40 MG TABLET PO SCH ×2 (09:55→21:47)
[2021-05-09] MEDS: SODIUM CHLORIDE FLUSH 0.9% 10 ML SYRINGE IVP SCH ×2 (09:55→16:56)
[2021-05-09] MEDS: SODIUM CHLORIDE 0.9% 1,000 ML IV SCH ×2 (09:56→18:29)
[2021-05-09] MEDS: cefTRIAXone 1 GM in SODIUM CHLORIDE 0.9% MINIBAG 100 ML IV SCH (10:00)
[2021-05-09] MEDS: POTASSIUM CHLOR 10 MEQ/100 ML 10 MEQ/100 ML BAG IV SCH ×2 (10:36→11:54)
[2021-05-09] MEDS ORDERED: POTASSIUM CHLOR 10 MEQ/100 ML 10 MEQ/100 ML BAG IV ONE (11:00)
[2021-05-09] MEDS: HYDROmorphone 0.5 MG/0.5 ML SYRINGE IVP PRN ×2 (12:28→21:53)
[2021-05-09] MEDS: SODIUM CHLORIDE FLUSH 0.9% 10 ML SYRINGE IVP PRN (12:28)
[2021-05-09] MEDS: ONDANSETRON 4 MG/2 ML VIAL IVP PRN ×2 (12:28→20:43)
[2021-05-09] MEDS: ZINC OXIDE 20% OINT 30 GM TUBE TOP PRN (14:41)
[2021-05-09] MEDS: NYSTATIN POWDER 15 GM TOP SCH (21:47)
[2021-05-09] MEDS: oxyCODONE 5 MG TABLET PO PRN (23:45)
[2021-05-10] MEDS: ONDANSETRON 4 MG/2 ML VIAL IVP PRN ×4 (00:44→21:45)
[2021-05-10] MEDS: SODIUM CHLORIDE 0.9% 1,000 ML IV SCH ×4 (00:44→23:35)
[2021-05-10] MEDS: SODIUM CHLORIDE FLUSH 0.9% 10 ML SYRINGE IVP SCH ×4 (00:45→23:35)
[2021-05-10] MEDS: oxyCODONE 5 MG TABLET PO PRN ×3 (03:57→22:37)
[2021-05-10 06:35] LABS: BASOPHILS # (AUTO) 0.1 10^3/uL (0.0-0.1); BASOPHILS % (AUTO) 0.3 %; EOSINOPHILS % (AUTO) 0.2 %; HCT - HEMATOCRIT 36.3 % (37.0-47.0); HGB - HEMOGLOBIN 11.6 g/dL (12.0-16.0); LYMPHOCYTES # (AUTO) 2.4 10^3/uL (1.5-3.5); LYMPHOCYTES % (AUTO) 15.1 %; MEAN CORPUSCULAR HEMOGLOBIN 33.2 pg (27.0-31.0); MEAN PLATELET VOLUME 12.7 fL (7.9-10.8); MONOCYTES # (AUTO) 0.7 10^3/uL (0.0-1.0); NEUTROPHILS # (AUTO) 12.9 10^3/uL (1.5-6.6); PLT - PLATELET COUNT 152 10^3/uL (130-450); RED BLOOD COUNT 3.49 10^6/uL (4.20-5.40); RED CELL DISTRIBUTION WIDTH 15.9 % (12.0-15.0); WHITE BLOOD COUNT 16.2 x10^3/uL (4.8-10.8)
[2021-05-10 07:07] LABS: ALBUMIN 3.2 g/dL (3.2-5.5); ALBUMIN/GLOBULIN RATIO 0.9 (1.0-2.2); ALKALINE PHOSPHATASE 54 IU/L (42-121); ALT ALANINE AMINOTRANSFERASE 119 IU/L (10-60); AST ASPARTATE AMINOTRANSFERASE 147 IU/L (10-42); BILIRUBIN,TOTAL 2.7 mg/dL (0.2-1.0); BUN - BLOOD UREA NITROGEN 21 mg/dL (6-20); CALCIUM 8.5 mg/dL (8.5-10.3); CARBON DIOXIDE - CO2 21 mmol/L (21-32); CHLORIDE 109 mmol/L (101-111); CHOL/HDL RATIO 3.2 (<4.4); CHOLESTEROL 150 mg/dL; CREATININE 0.8 mg/dL (0.4-1.0); GFR - MDRD 68 (>89); GLUCOSE 98 mg/dL (70-100); HDL CHOLESTEROL 47 mg/dL; LDL CHOLESTEROL,CALCULATED 92 mg/dL; LIPASE 972 U/L (22-51); SODIUM 143 mmol/L (135-145); TOTAL PROTEIN 6.7 g/dL (6.7-8.2); TRIGLYCERIDES 55 mg/dL; VLDL CHOLESTEROL 11 mg/dL
--- NOTE | 2021-05-10 07:39 | PROVIDER PROGRESS NOTE ---
Assessment/Plan - Problem List (1) Pancreatitis Qualifiers: Chronicity: acute Pancreatitis type: unspecified pancreatitis type Acute pancreatitis complication: unspecified Qualified Code(s): K85.90 - Acute pancreatitis without necrosis or infection, unspecified Assessment/Plan: Patient presented to ED yesterday complaining of nausea, vomiting, and abdominal pain for 1 day. She reported pain is similar to when she had cholecystitis. Abd CT 05/09/2021 showed "Pancreas is edematous with peripancreatic phlegmon consistent with acute pancreatits. No pseudocyst or abscess present". Initial Lipase is 720 and has increased to 972, white blood cell count slightly decreased from 16.6 to 16.2, AST decreased from 290 to 147, Triglycerides were 55. Initial [place]'s criteria was 4 and predicts a 15% mortality. Patient had a Laparoscopic cholecystectomy in 2019. She denies alcohol use or liver disease. Today patient reports pain is well controlled with medication. Last episode of vomiting was at 0200 and did not have coffee ground appearance. She continues to have intermittent nausea that improves with Zofran. She is eager to resume a diet and requested tea. Plan: Continue to hydrate with NS at 150ml/hr. Ok to give sips of herbal tea without sugar or dairy and plan to advance diet wh en abdominal pain and nausea subside. Continue to manage pain with prn Oxycodone and Dilaudid. Continue to manage nausea and vomiting with prn Zofran. Continue to monitor lipase level for trends with anticipated peak at 24 to 48 hours. Determine [place]'s Criteria again at 48 hours. (2) Leukocytosis Assessment/Plan: Patient had elevated white blood cell on admission at 16.6 which is slightly lower today at 16.2 . She continues to be afebrile and denies chills. Preliminary urine culture from 05/09/2021 is growing gram negative bacteria. Patient reports overflow incontinence and denies urgency, frequency, or dysuria. 05/09/2021 Blood culture is negative for growth. Plan: Continue with IV Rocephin due to allergy to Amoxicillin and pending urine sensitivity. Will consider adjusting antibiotics to Macrobid or Ciprofloxacin if E. Coli is confirmed on urine culture. (3) GI bleed Assessment/Plan: Suspected GI bleed. Patient reported nausea and vomiting for 1 day before coming to the hospital. She had an episode of coffee ground emesis in the ED and gastric output was occult blood positive. Hbg remains stable at 11.6. Today she reports her last episode of vomiting was at 0200 and did not contain coffee grounds. She continues to be intermittently nauseated. Plan: Continue bowel rest allowing for sips, chips, and unsweetened herbal tea. Continue Protonix 40mg PO twice daily. Monitor Hbg and if < 7 or actively bleeding, will transfuse and consult surgery for potential EGD. Continue to hold Eliquis and consider resuming if no signs of active bleeding. (4) Atrial fibrillation Qualifiers: Atrial fibrillation type: paroxysmal Qualified Code(s): I48.0 - Paroxysmal atrial fibrillation Assessment/Plan: Patient has a history of atrial fibrillation and takes Metoprolol 25mg PO daily and Eliquis 5mg PO twice daily. She denies palpitations, chest pain, syncope, or dyspnea. Plan: Continue with home Lopressor dose for rate control. Continue to hold Eliquis due to coffee ground emesis on admission. 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 (5) HTN (hypertension) Assessment/Plan: Patient has a history of hypertension and takes Metoprolol succinate 25mg PO daily. Her SBP is ranging 110-140s. Plan: Continue with home Metoprolol dose. Continue to monitor blood pressure and treat as needed. (6) History of coronary artery disease Assessment/Plan: Patient had a quadruple vessel CABG in 2009. She takes Metoprolol 25mg PO daily and Eliquis 5mg PO twice daily. Plan: Continue home Metoprolol dose. Hold Eliquis due to coffee ground emesis on admission. - Current Meds Current Meds: Current Medications Generic Name Dose Route Start Last Admin Trade Name Freq PRN Reason Stop Dose Admin Hydromorphone HCl 0.5 mg 05/09/21 07:35 05/09/21 21:53 Hydromorphone 0.5 Mg/0.5 Ml Syringe IVP 0.5 mg Q2H PRN Administration Pain 8 to 10 Sodium Chloride 1,000 mls @ 150 mls/hr 05/09/21 10:00 05/10/21 00:44 Normal Saline 0.9% IV 150 mls/hr .Q6H40M MOE Administration Ceftriaxone Sodium 1 gm/ 100 mls @ 200 mls/hr 05/09/21 10:00 05/09/21 10:34 Sodium Chloride IV Infused DAILY MOE Infusion Multi-Ingredient Ointment 1 applic 05/09/21 09:23 05/09/21 14:41 Zinc Oxide 20% Oint 30 Gm Tube TOP 1 applic PRN PRN Administration Skin Care Nystatin 1 applic 05/09/21 21:00 05/09/21 21:47 Nystatin Powder 15 Gm TOP 1 applic BID MOE Administration Ondansetron HCl 4 mg 05/09/21 07:35 05/10/21 04:00 Ondansetron 4 Mg/2 Ml Vial IVP 4 mg Q6HR PRN Administration Nausea / Vomiting Oxycodone HCl 5 mg 05/09/21 07:35 05/10/21 03:57 Oxycodone 5 Mg Tablet PO 5 mg Q4HR PRN Administration Pain 5 to 7 Pantoprazole Sodium 40 mg 05/09/21 09:00 05/09/21 21:47 Pantoprazole 40 Mg Tablet PO 40 mg BID MOE Administration Sodium Chloride 10 ml 05/09/21 07:28 05/09/21 12:28 Sodium Chloride Flush 0.9% 10 Ml Syringe IVP 10 ml PRN PRN Administration NEEDED PER PROVIDER ORDERS Sodium Chloride 10 ml 05/09/21 09:00 05/10/21 00:45 Sodium Chloride Flush 0.9% 10 Ml Syringe IVP 10 ml 0100,0900,1700 MOE Administration - Lab Result Fish Bone Diagrams: 05/10/21 06:20 05/10/21 06:20 Subjective - Subjective Patient Reports: Feeling Better, Resting Comfortably, Abdominal Pain (Intermittent abdominal pain that spreads across the lower boarder of the upper right and left abdominal quadrants. Worse with movement and improves with rest and medications.), Other (Patient was laying down in bed. She reports having 8 episodes of nausea and vomiting that ended at 0200. Nausea continues to be intermittent and well controlled with Zofran.) Nursing Reports: Nausea, Other (No vomitting during her shift and was not reported by previous shift.) Objective Vital Signs: Vital Signs - 24 hr 05/09/21 05/09/21 05/09/21 08:00 10:00 10:01 Temperature 37.0 C Heart Rate [ Brachial] Heart Rate [ 80 Monitoring electrodes] Respiratory 20 Rate Blood Pressure 128/56 L [Left Brachial artery] Blood Pressure [Right Brachial artery] O2 Saturation 100 100 99 05/09/21 05/09/21 05/09/21 10:10 10:11 11:30 Temperature 36.9 C Heart Rate [ Brachial] Heart Rate [ 77 Monitoring electrodes] Respiratory 16 Rate Blood Pressure 127/43 L [Left Brachial artery] Blood Pressure [Right Brachial artery] O2 Saturation 99 99 95 05/09/21 05/09/21 05/09/21 12:00 12:38 12:39 Temperature Heart Rate [ Brachial] Heart Rate [ Monitoring electrodes] Respiratory Rate Blood Pressure [Left Brachial artery] Blood Pressure [Right Brachial artery] O2 Saturation 96 87 L 95 05/09/21 05/09/21 05/09/21 13:00 13:02 16:08 Temperature 36.8 C Heart Rate [ Brachial] Heart Rate [ 78 Monitoring electrodes] Respiratory 16 Rate Blood Pressure 143/81 H [Left Brachial artery] Blood Pressure [Right Brachial artery] O2 Saturation 99 98 99 05/09/21 05/09/21 05/10/21 21:00 23:44 06:51 Temperature 37.0 C 36.8 C 37.2 C Heart Rate [ 78 93 Brachial] Heart Rate [ 86 Monitoring electrodes] Respiratory 18 19 19 Rate Blood Pressure 133/56 H 108/81 H [Left Brachial artery] Blood Pressure 138/60 H [Right Brachial artery] O2 Saturation 94 95 93 Oxygen O2 Source [With Activity] Room air O2 Source Room air Oxygen Flow Rate 2 I&O (Last 24 Hrs): Intake and Output Totals x24h 05/08/21 05/09/21 05/10/21 23:59 23:59 23:59 Intake Total 2292.5 937.5 Output Total 1650 200 Balance 642.5 737.5 General: Alert, Oriented x3, Cooperative, No acute distress HEENT: Atraumatic, EOMI, Mucous membr. moist/pink Neck: Supple, No JVD Neuro: Alert, Oriented Times 3 Cardiovascular: Other (Irregularly irregular) Respiratory: Chest non-tender, No respiratory distress, Breath sounds nml, Other (Clear bilateral breath sounds to auscultation. No wheezes, rales, or rhonchi.) Abdomen: Normal bowel sounds, Soft, Other (Protuberant. Abdominal tenderness with palpation to bilateral upper abdominal quadrants. 5cm soft, reducible non- tender mass to right upper quadrant.) Extremities: No clubbing, No edema Comments/Notes: Ecchymosis to bilateral dorsum of the hands. Fungal rash to bilateral groin and petechiae to left groin. - Results Results: Laboratory Results WBC 16.2 x10^3/uL (4.8-10.8) H 05/10/21 06:20 RBC 3.49 10^6/uL (4.20-5.40) L 05/10/21 06:20 Hgb 11.6 g/dL (12.0-16.0) L 05/10/21 06:20 Hct 36.3 % (37.0-47.0) L 05/10/21 06:20 MCV 104.0 fL (81.0-99.0) H 05/10/21 06:20 MCH 33.2 pg (27.0-31.0) H 05/10/21 06:20 MCHC 32.0 g/dL (32.0-36.0) 05/10/21 06:20 RDW 15.9 % (12.0-15.0) H 05/10/21 06:20 Plt Count 152 10^3/uL (130-450) 05/10/21 06:20 MPV 12.7 fL (7.9-10.8) H 05/10/21 06:20 Neut # (Auto) 12.9 10^3/uL (1.5-6.6) H 05/10/21 06:20 Lymph # (Auto) 2.4 10^3/uL (1.5-3.5) 05/10/21 06:20 [place] # (Auto) 0.7 10^3/uL (0.0-1.0) 05/10/21 06:20 Eos # (Auto) 0.0 10^3/uL (0.0-0.7) 05/10/21 06:20 Baso # (Auto) 0.1 10^3/uL (0.0-0.1) 05/10/21 06:20 Absolute Nucleated RBC 0.00 x10^3/uL 05/10/21 06:20 Nucleated RBC % 0.0 /100WBC 05/10/21 06:20 Sodium 143 mmol/L (135-145) 05/10/21 06:20 Potassium 4.0 mmol/L (3.5-5.0) 05/10/21 06:20 Chloride 109 mmol/L (101-111) 05/10/21 06:20 Carbon Dioxide 21 mmol/L (21-32) 05/10/21 06:20 Anion Gap 13.0 (6-13) 05/10/21 06:20 BUN 21 mg/dL (6-20) H 05/10/21 06:20 Creatinine 0.8 mg/dL (0.4-1.0) 05/10/21 06:20 Estimated GFR (MDRD) 68 (>89) L 05/10/21 06:20 Glucose 98 mg/dL (70-100) 05/10/21 06:20 Calcium 8.5 mg/dL (8.5-10.3) 05/10/21 06:20 Magnesium 2.4 mg/dL (1.7-2.8) 05/09/21 07:55 Total Bilirubin 2.7 mg/dL (0.2-1.0) H 05/10/21 06:20 AST 147 IU/L (10-42) H 05/10/21 06:20 ALT 119 IU/L (10-60) H 05/10/21 06:20 Alkaline Phosphatase 54 IU/L (42-121) 05/10/21 06:20 Lactate Dehydrogenase 271 IU/L (91-225) H 05/09/21 13:35 Total Protein 6.7 g/dL (6.7-8.2) 05/10/21 06:20 Albumin 3.2 g/dL (3.2-5.5) 05/10/21 06:20 Globulin 3.5 g/dL (2.1-4.2) 05/10/21 06:20 Albumin/Globulin Ratio 0.9 (1.0-2.2) L 05/10/21 06:20 Triglycerides 55 mg/dL (-149) 05/10/21 06:20 Cholesterol 150 mg/dL (-199) 05/10/21 06:20 LDL Cholesterol, Calc 92 mg/dL (-129) 05/10/21 06:20 VLDL Cholesterol 11 mg/dL 05/10/21 06:20 HDL Cholesterol 47 mg/dL (60-) L 05/10/21 06:20 LDL/HDL Ratio 2.0 (<4.4) 05/10/21 06:20 Cholesterol/HDL Ratio 3.2 (<4.4) 05/10/21 06:20 Lipase 972 U/L (22-51) H 05/10/21 06:20 Urine Color YELLOW 05/09/21 04:10 Urine Clarity CLEAR (CLEAR) 05/09/21 04:10 Urine pH 7.5 PH (5.0-7.5) 05/09/21 04:10 Ur Specific [place] 1.020 (1.002-1.030) 05/09/21 04:10 Urine Protein NEGATIVE mg/dL (NEGATIVE) 05/09/21 04:10 Urine Glucose (UA) NEGATIVE mg/dL (NEGATIVE) 05/09/21 04:10 Urine Ketones NEGATIVE mg/dL (NEGATIVE) 05/09/21 04:10 Urine Occult Blood NEGATIVE (NEGATIVE) 05/09/21 04:10 Urine Nitrite POSITIVE (NEGATIVE) H 05/09/21 04:10 Urine Bilirubin NEGATIVE (NEGATIVE) 05/09/21 04:10 Urine Urobilinogen 1 (NORMAL) E.U./dL (NORMAL) 05/09/21 04:10 Ur Leukocyte Esterase NEGATIVE (NEGATIVE) 05/09/21 04:10 Urine RBC None Seen /HPF (0-5) 05/09/21 04:10 Urine WBC 0-3 /HPF (0-5) 05/09/21 04:10 Ur Squamous Epith Cells NONE SEEN (<= Few) 05/09/21 04:10 Urine Bacteria Many /HPF (None Seen) H 05/09/21 04:10 Ur Microscopic Review INDICATED 05/09/21 04:10 Urine Culture Comments INDICATED 05/09/21 04:10 Nasal Adenovirus (PCR) NOT DETECTED 05/09/21 05:00 Nasal B. parapertussis DNA (PCR) NOT DETECTED 05/09/21 05:00 Nasal Coronavir 229E PCR NOT DETECTED 05/09/21 05:00 Nasal Coronavir HKU1 PCR NOT DETECTED 05/09/21 05:00 Nasal Coronavir NL63 PCR NOT DETECTED 05/09/21 05:00 Nasal Coronavir OC43 PCR NOT DETECTED 05/09/21 05:00 Nasal Enterovir/Rhinovir PCR NOT DETECTED 05/09/21 05:00 Nasal Influenza B PCR NOT DETECTED 05/09/21 05:00 Nasal Influenza A PCR NOT DETECTED 05/09/21 05:00 Nasal Parainfluen 1 PCR NOT DETECTED 05/09/21 05:00 Nasal Parainfluen 2 PCR NOT DETECTED 05/09/21 05:00 Nasal Parainfluen 3 PCR NOT DETECTED 05/09/21 05:00 Nasal Parainfluen 4 PCR NOT DETECTED 05/09/21 05:00 Nasal RSV (PCR) NOT DETECTED 05/09/21 05:00 Nasal B.pertussis DNA PCR NOT DETECTED 05/09/21 05:00 Nasal C.pneumoniae (PCR) NOT DETECTED 05/09/21 05:00 Rustam Human Metapneumo PCR NOT DETECTED 05/09/21 05:00 Nasal M.pneumoniae (PCR) NOT DETECTED 05/09/21 05:00 Nasal SARS-CoV-2 (PCR) NOT DETECTED 05/09/21 05:00 Gastric Fluid pH 2.0 05/09/21 03:01 Gastric Occult Blood POSITIVE (Negative) A 05/09/21 03:01 Blood Type O POSITIVE 05/09/21 04:43 Blood Type Recheck O POSITIVE 05/09/21 03:01 Antibody Screen NEGATIVE 05/09/21 04:43 - Procedures Procedures: Procedures REPLACEMENT OF LEFT LENS WITH SYNTH SUB, PERC APPROACH (06/10/16) RESECTION OF GALLBLADDER, PERCUTANEOUS ENDOSCOPIC APPROACH (12/25/19) REVISION OF EXTRALUMINAL DEVICE IN STOMACH, PERC APPROACH (12/25/19) VENOUS CATHETERIZATION NEC (02/02/14) ABX Reporting Has patient been on IV antibiotics over the past 48 hours?: No
--- NOTE | 2021-05-10 08:10 | PHARMACY PROGRESS NOTE ---
- Best Possible Medication History Admit Date and Time: 05/09/21 0728 Processed by: Nursing Medication History completed: Yes As the person ultimately responsible for medication therapy, providers are able to order a medication from an existing home medication list in [facility] via the "Reconcile Routine" prior to Confirmation of that medication by it support engineer. Such practice is discouraged except when the physician, in their clinical judgment, deems that a medical need exists for a medication without regard to previous use.
[2021-05-10] MEDS: cefTRIAXone 1 GM in SODIUM CHLORIDE 0.9% MINIBAG 100 ML IV SCH (09:01)
[2021-05-10] MEDS: PANTOPRAZOLE 40 MG TABLET PO SCH ×2 (09:01→20:59)
[2021-05-10] MEDS: METOPROLOL SUCCINATE 25 MG TABLET PO SCH (09:03)
[2021-05-10] MEDS: NYSTATIN POWDER 15 GM TOP SCH ×2 (09:05→20:59)
[2021-05-10] MEDS: ALBUTEROL NEB 2.5 MG/3 ML INH PRN ×2 (10:18→16:51)
[2021-05-10] MEDS: SODIUM CHLORIDE FLUSH 0.9% 10 ML SYRINGE IVP PRN (10:33)
[2021-05-10] MEDS: ZINC OXIDE 20% OINT 30 GM TUBE TOP PRN (10:47)
[2021-05-10] MEDS ORDERED: guaiFENesin/DEXTROMETHORPHAN 10 ML UDC PO PRN (11:32)
[2021-05-10] MEDS: guaiFENesin 600 MG TABLET PO SCH ×2 (13:09→20:59)
[2021-05-10] MEDS: MORPHINE 2 MG/ML CARPUJECT IVP PRN (23:57)
[2021-05-11] MEDS: MORPHINE 2 MG/ML CARPUJECT IVP PRN ×7 (03:12→22:33)
[2021-05-11 04:21] LABS: BASOPHILS # (AUTO) 0.1 10^3/uL (0.0-0.1); BASOPHILS % (AUTO) 0.4 %; EOSINOPHILS # (AUTO) 0.1 10^3/uL (0.0-0.7); EOSINOPHILS % (AUTO) 0.9 %; HCT - HEMATOCRIT 33.1 % (37.0-47.0); HGB - HEMOGLOBIN 10.5 g/dL (12.0-16.0); LYMPHOCYTES % (AUTO) 17.7 %; MEAN CORPUSCULAR HEMOGLOBIN 32.8 pg (27.0-31.0); MEAN CORPUSCULAR HGB CONC 31.7 g/dL (32.0-36.0); MEAN CORPUSCULAR VOLUME 103.4 fL (81.0-99.0); MEAN PLATELET VOLUME 12.6 fL (7.9-10.8); MONOCYTES # (AUTO) 0.6 10^3/uL (0.0-1.0); MONOCYTES % (AUTO) 5.4 %; NEUTROPHILS # (AUTO) 8.6 10^3/uL (1.5-6.6); NEUTROPHILS % (AUTO) 75.1 %; PLT - PLATELET COUNT 143 10^3/uL (130-450); RED CELL DISTRIBUTION WIDTH 15.7 % (12.0-15.0); WHITE BLOOD COUNT 11.5 x10^3/uL (4.8-10.8)
[2021-05-11 04:36] LABS: ALBUMIN/GLOBULIN RATIO 0.9 (1.0-2.2); BILIRUBIN,TOTAL 1.6 mg/dL (0.2-1.0); CALCIUM 8.1 mg/dL (8.5-10.3); CREATININE 0.8 mg/dL (0.4-1.0); POTASSIUM 3.5 mmol/L (3.5-5.0); TOTAL PROTEIN 6.3 g/dL (6.7-8.2)
[2021-05-11] MEDS: SODIUM CHLORIDE 0.9% 1,000 ML IV SCH ×3 (06:12→20:03)
--- NOTE | 2021-05-11 08:22 | PROVIDER PROGRESS NOTE ---
Assessment/Plan - Problem List (1) Pancreatitis Qualifiers: Chronicity: acute Pancreatitis type: unspecified pancreatitis type Acute pancreatitis complication: unspecified Qualified Code(s): K85.90 - Acute pancreatitis without necrosis or infection, unspecified Assessment/Plan: Etiology undetermined. Lipase improved from 972 down to 154 on 05/11/2021. Patient reported improvement in abdominal pain. Continue morphine as needed. Zofran as needed for nausea. On clear liquid diet today. Plan to further advance as tolerated. Continue IV hydration with normal saline. (2) UTI (urinary tract infection) Assessment/Plan: Urine culture grew Klebsiella Patient has been on Rocephin 1 g IV daily since 05/09/21. Cell count improved from 16.2 down to 11.5 (3) Leukocytosis Assessment/Plan: Reactive secondary to pancreatitis versus infectious secondary to UTI. White blood cell count has improved from 16.2 down to 11.5. Patient is on Rocephin. We will continue. She is afebrile. (4) GI bleed Assessment/Plan: It was reported that patient had coffee-ground emesis at time of admission which was guaiac positive. There has been no recurrence of Hematemesis. Patient's Eliquis was held. Plan to resume on the evening of 05/11/2021 and observe for any recurrence of coffee-ground emesis or drop in hemoglobin. On Protonix 40 mg p.o. twice daily. (5) Atrial fibrillation Qualifiers: Atrial fibrillation type: paroxysmal Qualified Code(s): I48.0 - Paroxysmal atrial fibrillation Assessment/Plan: Heart rate has been between 70 and 90. Continue 25 mg p.o. daily. Eliquis 5 mg p.o. twice daily resumed on 05/11/2021 evening. (6) HTN (hypertension) Assessment/Plan: On metoprolol succinate 25 mg p.o. daily (7) History of coronary artery disease Assessment/Plan: Patient had a quadruple vessel CABG in 2009. She takes Metoprolol 25mg PO daily and Eliquis 5mg PO twice daily. - Current Meds Current Meds: Current Medications Generic Name Dose Route Start Last Admin Trade Name Freq PRN Reason Stop Dose Admin Albuterol 2.5 mg 05/10/21 09:04 05/10/21 16:51 Albuterol Neb 2.5 Mg/3 Ml INH 2.5 mg RTQ4H PRN Administration Wheezing Guaifenesin 600 mg 05/10/21 13:00 05/10/21 20:59 Guaifenesin 600 Mg Tablet PO 600 mg BID MOE Administration Sodium Chloride 1,000 mls @ 150 mls/hr 05/09/21 10:00 05/11/21 06:12 Normal Saline 0.9% IV 150 mls/hr .Q6H40M MOE Administration Ceftriaxone Sodium 1 gm/ 100 mls @ 200 mls/hr 05/09/21 10:00 05/10/21 09:35 Sodium Chloride IV Infused DAILY MOE Infusion Metoprolol Succinate 25 mg 05/10/21 09:00 05/10/21 09:03 Metoprolol Succinate 25 Mg Tablet PO 25 mg DAILY MOE Administration Morphine Sulfate 2 mg 05/10/21 23:35 05/11/21 06:48 Morphine 2 Mg/Ml Carpuject IVP 2 mg Q2HR PRN Administration Severe Pain Multi-Ingredient Ointment 1 applic 05/09/21 09:23 05/10/21 10:47 Zinc Oxide 20% Oint 30 Gm Tube TOP 1 applic PRN PRN Administration Skin Care Nystatin 1 applic 05/09/21 21:00 05/10/21 20:59 Nystatin Powder 15 Gm TOP 1 applic BID MOE Administration Ondansetron HCl 4 mg 05/09/21 07:35 05/10/21 21:45 Ondansetron 4 Mg/2 Ml Vial IVP 4 mg Q6HR PRN Administration Nausea / Vomiting Oxycodone HCl 5 mg 05/09/21 07:35 05/10/21 22:37 Oxycodone 5 Mg Tablet PO 5 mg Q4HR PRN Administration Pain 5 to 7 Pantoprazole Sodium 40 mg 05/09/21 09:00 05/10/21 20:59 Pantoprazole 40 Mg Tablet PO 40 mg BID MOE Administration Sodium Chloride 10 ml 05/09/21 07:28 05/10/21 10:33 Sodium Chloride Flush 0.9% 10 Ml Syringe IVP 10 ml PRN PRN Administration NEEDED PER PROVIDER ORDERS Sodium Chloride 10 ml 05/09/21 09:00 05/10/21 23:35 Sodium Chloride Flush 0.9% 10 Ml Syringe IVP 10 ml 0100,0900,1700 MOE Administration - Lab Result Fish Bone Diagrams: 05/11/21 04:02 05/11/21 04:02 - Additional Planning My Orders: My Active Orders 05/10/21 09:00 Metoprolol Succinate [Toprol Xl] 25 mg PO DAILY 05/10/21 09:04 Albuterol 2.5 mg INH RTQ4H PRN 05/10/21 09:05 Nebulizer/MDI Tx. [RC] .qid Resp Teach Nebulizer/MDI [RC] .ONCE 05/10/21 10:49 IS [Incentive Spirometry - RT] [RC] .TID 05/10/21 13:00 guaiFENesin [Mucinex] 600 mg PO BID 05/11/21 Lunch Clear Liquid Diet [DIET] 05/12/21 05:00 CBC - COMP BLD CT W/AUTO DIFF [HEME] DAILYLAB COMPREHENSIVE METABOLIC PANEL [CHEM] DAILYLAB LIPASE [CHEM] DAILYLAB 05/13/21 05:00 CBC - COMP BLD CT W/AUTO DIFF [HEME] DAILYLAB 05/14/21 05:00 CBC - COMP BLD CT W/AUTO DIFF [HEME] DAILYLAB 05/15/21 05:00 CBC - COMP BLD CT W/AUTO DIFF [HEME] DAILYLAB 05/16/21 05:00 CBC - COMP BLD CT W/AUTO DIFF [HEME] DAILYLAB Subjective - Subjective Patient Reports: Other (Resting comfortably in bed. Reported sleeping well last night. Reported minimal pain. Denied any significant complaints except for dry mouth.) Objective Vital Signs: Vital Signs - 24 hr 05/10/21 05/10/21 05/10/21 08:47 08:54 10:09 Temperature 37 C 39 C H Heart Rate 98 95 Heart Rate [ 98 Brachial] Heart Rate [ Monitoring electrodes] Respiratory 16 16 18 Rate Blood Pressure 138/81 H [Left Brachial artery] Blood Pressure [Right Brachial artery] O2 Saturation 95 97 05/10/21 05/10/21 05/10/21 13:00 16:27 16:52 Temperature 36.9 C 36.8 C Heart Rate 94 Heart Rate [ 98 Brachial] Heart Rate [ 93 Monitoring electrodes] Respiratory 18 16 18 Rate Blood Pressure 117/57 L [Left Brachial artery] Blood Pressure 136/56 H [Right Brachial artery] O2 Saturation 97 99 05/10/21 05/10/21 05/11/21 20:55 23:27 03:19 Temperature 36.6 C 36.9 C 36.6 C Heart Rate Heart Rate [ 97 87 92 Brachial] Heart Rate [ Monitoring electrodes] Respiratory 18 24 18 Rate Blood Pressure [Left Brachial artery] Blood Pressure 141/61 H 149/68 H 161/56 H [Right Brachial artery] O2 Saturation 98 96 95 05/11/21 04:04 Temperature Heart Rate Heart Rate [ 81 Brachial] Heart Rate [ Monitoring electrodes] Respiratory Rate Blood Pressure [Left Brachial artery] Blood Pressure 142/71 H [Right Brachial artery] O2 Saturation Oxygen O2 Source [With Activity] Room air O2 Source Room air Oxygen Flow Rate 2 I&O (Last 24 Hrs): Intake and Output Totals x24h 05/09/21 05/10/21 05/11/21 23:59 23:59 23:59 Intake Total 2292.5 4277.5 992.5 Output Total 1650 600 250 Balance 642.5 3677.5 742.5 General: Alert, Oriented x3, Cooperative, Mild distress HEENT: PERRLA, EOMI Neck: Supple, No JVD Neuro: Alert, Non Focal, Oriented Times 3 Cardiovascular: Regular rate, Normal S1, Normal S2 Respiratory: Chest non-tender, No respiratory distress, Breath sounds nml, Other (mild crackles in lung bases) Abdomen: Normal bowel sounds, Soft, No masses, Other (obese abdomen. Mild tenderness to palpation in bilateral upper abd quadrants) Extremities: No clubbing, No cyanosis, No edema Skin: No rashes, No breakdown - Results Results: Laboratory Results WBC 11.5 x10^3/uL (4.8-10.8) H 05/11/21 04:02 RBC 3.20 10^6/uL (4.20-5.40) L 05/11/21 04:02 Hgb 10.5 g/dL (12.0-16.0) L 05/11/21 04:02 Hct 33.1 % (37.0-47.0) L 05/11/21 04:02 MCV 103.4 fL (81.0-99.0) H 05/11/21 04:02 MCH 32.8 pg (27.0-31.0) H 05/11/21 04:02 MCHC 31.7 g/dL (32.0-36.0) L 05/11/21 04:02 RDW 15.7 % (12.0-15.0) H 05/11/21 04:02 Plt Count 143 10^3/uL (130-450) 05/11/21 04:02 MPV 12.6 fL (7.9-10.8) H 05/11/21 04:02 Neut # (Auto) 8.6 10^3/uL (1.5-6.6) H 05/11/21 04:02 Lymph # (Auto) 2.0 10^3/uL (1.5-3.5) 05/11/21 04:02 [place] # (Auto) 0.6 10^3/uL (0.0-1.0) 05/11/21 04:02 Eos # (Auto) 0.1 10^3/uL (0.0-0.7) 05/11/21 04:02 Baso # (Auto) 0.1 10^3/uL (0.0-0.1) 05/11/21 04:02 Absolute Nucleated RBC 0.00 x10^3/uL 05/11/21 04:02 Nucleated RBC % 0.0 /100WBC 05/11/21 04:02 Sodium 142 mmol/L (135-145) 05/11/21 04:02 Potassium 3.5 mmol/L (3.5-5.0) 05/11/21 04:02 Chloride 110 mmol/L (101-111) 05/11/21 04:02 Carbon Dioxide 21 mmol/L (21-32) 05/11/21 04:02 Anion Gap 11.0 (6-13) 05/11/21 04:02 BUN 17 mg/dL (6-20) 05/11/21 04:02 Creatinine 0.8 mg/dL (0.4-1.0) 05/11/21 04:02 Estimated GFR (MDRD) 68 (>89) L 05/11/21 04:02 Glucose 72 mg/dL (70-100) 05/11/21 04:02 Calcium 8.1 mg/dL (8.5-10.3) L 05/11/21 04:02 Magnesium 2.4 mg/dL (1.7-2.8) 05/09/21 07:55 Total Bilirubin 1.6 mg/dL (0.2-1.0) H 05/11/21 04:02 AST 66 IU/L (10-42) H 05/11/21 04:02 ALT 79 IU/L (10-60) H 05/11/21 04:02 Alkaline Phosphatase 45 IU/L (42-121) 05/11/21 04:02 Lactate Dehydrogenase 271 IU/L (91-225) H 05/09/21 13:35 Total Protein 6.3 g/dL (6.7-8.2) L 05/11/21 04:02 Albumin 3.0 g/dL (3.2-5.5) L 05/11/21 04:02 Globulin 3.3 g/dL (2.1-4.2) 05/11/21 04:02 Albumin/Globulin Ratio 0.9 (1.0-2.2) L 05/11/21 04:02 Triglycerides 55 mg/dL (-149) 05/10/21 06:20 Cholesterol 150 mg/dL (-199) 05/10/21 06:20 LDL Cholesterol, Calc 92 mg/dL (-129) 05/10/21 06:20 VLDL Cholesterol 11 mg/dL 05/10/21 06:20 HDL Cholesterol 47 mg/dL (60-) L 05/10/21 06:20 LDL/HDL Ratio 2.0 (<4.4) 05/10/21 06:20 Cholesterol/HDL Ratio 3.2 (<4.4) 05/10/21 06:20 Lipase 154 U/L (22-51) H 05/11/21 04:02 Urine Color YELLOW 05/09/21 04:10 Urine Clarity CLEAR (CLEAR) 05/09/21 04:10 Urine pH 7.5 PH (5.0-7.5) 05/09/21 04:10 Ur Specific [place] 1.020 (1.002-1.030) 05/09/21 04:10 Urine Protein NEGATIVE mg/dL (NEGATIVE) 05/09/21 04:10 Urine Glucose (UA) NEGATIVE mg/dL (NEGATIVE) 05/09/21 04:10 Urine Ketones NEGATIVE mg/dL (NEGATIVE) 05/09/21 04:10 Urine Occult Blood NEGATIVE (NEGATIVE) 05/09/21 04:10 Urine Nitrite POSITIVE (NEGATIVE) H 05/09/21 04:10 Urine Bilirubin NEGATIVE (NEGATIVE) 05/09/21 04:10 Urine Urobilinogen 1 (NORMAL) E.U./dL (NORMAL) 05/09/21 04:10 Ur Leukocyte Esterase NEGATIVE (NEGATIVE) 05/09/21 04:10 Urine RBC None Seen /HPF (0-5) 05/09/21 04:10 Urine WBC 0-3 /HPF (0-5) 05/09/21 04:10 Ur Squamous Epith Cells NONE SEEN (<= Few) 05/09/21 04:10 Urine Bacteria Many /HPF (None Seen) H 05/09/21 04:10 Ur Microscopic Review INDICATED 05/09/21 04:10 Urine Culture Comments INDICATED 05/09/21 04:10 Nasal Adenovirus (PCR) NOT DETECTED 05/09/21 05:00 Nasal B. parapertussis DNA (PCR) NOT DETECTED 05/09/21 05:00 Nasal Coronavir 229E PCR NOT DETECTED 05/09/21 05:00 Nasal Coronavir HKU1 PCR NOT DETECTED 05/09/21 05:00 Nasal Coronavir NL63 PCR NOT DETECTED 05/09/21 05:00 Nasal Coronavir OC43 PCR NOT DETECTED 05/09/21 05:00 Nasal Enterovir/Rhinovir PCR NOT DETECTED 05/09/21 05:00 Nasal Influenza B PCR NOT DETECTED 05/09/21 05:00 Nasal Influenza A PCR NOT DETECTED 05/09/21 05:00 Nasal Parainfluen 1 PCR NOT DETECTED 05/09/21 05:00 Nasal Parainfluen 2 PCR NOT DETECTED 05/09/21 05:00 Nasal Parainfluen 3 PCR NOT DETECTED 05/09/21 05:00 Nasal Parainfluen 4 PCR NOT DETECTED 05/09/21 05:00 Nasal RSV (PCR) NOT DETECTED 05/09/21 05:00 Nasal B.pertussis DNA PCR NOT DETECTED 05/09/21 05:00 Nasal C.pneumoniae (PCR) NOT DETECTED 05/09/21 05:00 [place] Human Metapneumo PCR NOT DETECTED 05/09/21 05:00 Nasal M.pneumoniae (PCR) NOT DETECTED 05/09/21 05:00 Nasal SARS-CoV-2 (PCR) NOT DETECTED 05/09/21 05:00 Gastric Fluid pH 2.0 05/09/21 03:01 Gastric Occult Blood POSITIVE (Negative) A 05/09/21 03:01 Blood Type O POSITIVE 05/09/21 04:43 Blood Type Recheck O POSITIVE 05/09/21 03:01 Antibody Screen NEGATIVE 05/09/21 04:43 - Procedures Procedures: Procedures REPLACEMENT OF LEFT LENS WITH SYNTH SUB, PERC APPROACH (06/10/16) RESECTION OF GALLBLADDER, PERCUTANEOUS ENDOSCOPIC APPROACH (12/25/19) REVISION OF EXTRALUMINAL DEVICE IN STOMACH, PERC APPROACH (12/25/19) VENOUS CATHETERIZATION NEC (02/02/14) ABX Reporting Has patient been on IV antibiotics over the past 48 hours?: Yes
[2021-05-11] MEDS: cefTRIAXone 1 GM in SODIUM CHLORIDE 0.9% MINIBAG 100 ML IV SCH (08:53)
[2021-05-11] MEDS: guaiFENesin 600 MG TABLET PO SCH ×2 (08:53→20:05)
[2021-05-11] MEDS: PANTOPRAZOLE 40 MG TABLET PO SCH ×2 (08:53→20:05)
[2021-05-11] MEDS: NYSTATIN POWDER 15 GM TOP SCH ×2 (08:54→20:03)
[2021-05-11] MEDS: METOPROLOL SUCCINATE 25 MG TABLET PO SCH (08:54)
[2021-05-11] MEDS: SODIUM CHLORIDE FLUSH 0.9% 10 ML SYRINGE IVP PRN ×2 (09:55→13:43)
[2021-05-11] MEDS: ONDANSETRON 4 MG/2 ML VIAL IVP PRN (09:55)
[2021-05-11] MEDS: SODIUM CHLORIDE FLUSH 0.9% 10 ML SYRINGE IVP SCH ×2 (10:43→16:01)
[2021-05-11] MEDS: oxyCODONE 5 MG TABLET PO PRN ×2 (11:04→20:04)
[2021-05-11] MEDS: APIXABAN 5 MG TABLET PO SCH (20:05)
[2021-05-11] MEDS: ZINC OXIDE 20% OINT 30 GM TUBE TOP PRN (21:00)
[2021-05-12] MEDS: SODIUM CHLORIDE 0.9% 1,000 ML IV SCH ×2 (03:20→07:58)
[2021-05-12] MEDS: SODIUM CHLORIDE FLUSH 0.9% 10 ML SYRINGE IVP SCH ×3 (03:21→15:45)
[2021-05-12] MEDS: ONDANSETRON 4 MG/2 ML VIAL IVP PRN ×3 (05:38→22:21)
[2021-05-12 05:41] LABS: BASOPHILS # (AUTO) 0.1 10^3/uL (0.0-0.1); BASOPHILS % (AUTO) 0.4 %; EOSINOPHILS # (AUTO) 0.2 10^3/uL (0.0-0.7); EOSINOPHILS % (AUTO) 1.7 %; HCT - HEMATOCRIT 34.1 % (37.0-47.0); HGB - HEMOGLOBIN 10.9 g/dL (12.0-16.0); LYMPHOCYTES % (AUTO) 16.4 %; MEAN CORPUSCULAR VOLUME 103.3 fL (81.0-99.0); MEAN PLATELET VOLUME 12.8 fL (7.9-10.8); MONOCYTES # (AUTO) 0.8 10^3/uL (0.0-1.0); MONOCYTES % (AUTO) 6.1 %; NEUTROPHILS # (AUTO) 9.2 10^3/uL (1.5-6.6); PLT - PLATELET COUNT 169 10^3/uL (130-450); RED CELL DISTRIBUTION WIDTH 15.6 % (12.0-15.0); WHITE BLOOD COUNT 12.3 x10^3/uL (4.8-10.8)
[2021-05-12] MEDS: MORPHINE 2 MG/ML CARPUJECT IVP PRN ×2 (05:45→15:44)
[2021-05-12 05:55] LABS: ALBUMIN 2.7 g/dL (3.2-5.5); ALBUMIN/GLOBULIN RATIO 0.8 (1.0-2.2); BILIRUBIN,TOTAL 1.2 mg/dL (0.2-1.0); CREATININE 0.7 mg/dL (0.4-1.0); POTASSIUM 3.4 mmol/L (3.5-5.0); TOTAL PROTEIN 6.2 g/dL (6.7-8.2)
[2021-05-12] MEDS ORDERED: POTASSIUM CHLORIDE 20 MEQ TABLET PO ONE (07:35)
--- NOTE | 2021-05-12 07:47 | PROVIDER PROGRESS NOTE ---
Subjective - Prog Note Date Prog Note Date: 05/12/21 - Subjective Subjective: She has no more nausea or vomiting but still has abdominal pain. This is improved since admission but still has discomfort especially with meals. Current Medications - Current Medications Current Medications: Active Medications Albuterol (Albuterol Neb 2.5 Mg/3 Ml) 2.5 mg INH RTQ4H PRN PRN Reason: Wheezing Last Admin: 05/10/21 16:51 Dose: 2.5 mg Apixaban (Apixaban 5 Mg Tablet) 5 mg PO BID [facility] Last Admin: 05/11/21 20:05 Dose: 5 mg Guaifenesin (Guaifenesin 600 Mg Tablet) 600 mg PO BID [facility] Last Admin: 05/11/21 20:05 Dose: 600 mg Potassium Chloride/Dextrose/Sod Cl (D5.45ns W/20 Meq Kcl) 1,000 mls @ 100 mls/hr IV .Q10H [facility] Stop: 05/12/21 17:59 Last Admin: 05/12/21 07:55 Dose: 100 mls/hr Potassium Chloride (Potassium Chloride) 10 meq in 100 mls @ 100 mls/hr IV Q1H [facility] Stop: 05/12/21 10:59 Metoprolol Succinate (Metoprolol Succinate 25 Mg Tablet) 25 mg PO DAILY [facility] Last Admin: 05/11/21 08:54 Dose: 25 mg Morphine Sulfate (Morphine 2 Mg/Ml Carpuject) 2 mg IVP Q2HR PRN PRN Reason: Severe Pain Last Admin: 05/12/21 05:45 Dose: 2 mg Multi-Ingredient Ointment (Zinc Oxide 20% Oint 30 Gm Tube) 1 applic TOP PRN PRN PRN Reason: Skin Care Last Admin: 05/11/21 21:00 Dose: 1 applic Nystatin (Nystatin Powder 15 Gm) 1 applic TOP BID [facility] Last Admin: 05/11/21 20:03 Dose: 1 applic Ondansetron HCl (Ondansetron 4 Mg/2 Ml Vial) 4 mg IVP Q6HR PRN PRN Reason: Nausea / Vomiting Last Admin: 05/12/21 05:38 Dose: 4 mg Oxycodone HCl (Oxycodone 5 Mg Tablet) 5 mg PO Q4HR PRN PRN Reason: Pain 5 to 7 Last Admin: 05/11/21 20:04 Dose: 5 mg Pantoprazole Sodium (Pantoprazole 40 Mg Tablet) 40 mg PO QDAC MOE Sodium Chloride (Sodium Chloride Flush 0.9% 10 Ml Syringe) 10 ml IVP PRN PRN PRN Reason: NEEDED PER PROVIDER ORDERS Last Admin: 05/11/21 13:43 Dose: 10 ml Sodium Chloride (Sodium Chloride Flush 0.9% 10 Ml Syringe) 10 ml IVP 0100,0900,1700 MOE Last Admin: 05/12/21 03:21 Dose: 10 ml Albuterol Sulfate [Albuterol Sulfate Hfa] 2 puffs INH Q4H PRN 12/25/19 Apixaban [Eliquis] 5 mg PO BID 12/25/19 Metoprolol Succinate [Toprol Xl] 25 mg PO DAILY 12/25/19 Objective - Vital Signs/Intake & Output Reviewed Vital Signs: Yes Vital Signs: Vital Signs x48h Temp Pulse Resp BP Pulse Ox 05/12/21 06:12 36.8 C 92 18 148/97 H 97 05/12/21 00:53 36.9 C 73 18 138/57 H 97 Intake & Output: Intake & Output 05/09/21 05/10/21 05/11/21 05/12/21 23:59 23:59 23:59 23:59 Intake Total 2292.5 4277.5 3342.5 1120 Output Total 1650 600 700 250 Balance 642.5 3677.5 2642.5 870 - Objective General Appearance: positive: Alert, Mild distress Eyes Bilateral: positive: Normal inspection, Conjunctivae nml ENT: positive: ENT inspection nml Neck: positive: Nml inspection Respiratory: positive: No respiratory distress, Other (Diminished in bases.). negative: Wheezes Cardiovascular: positive: Irregularly irregular. negative: Tachycardia Abdomen: positive: Nml bowel sounds, No distention, Tenderness (Diffuse tenderness.). negative: Non-tender, Guarding, Rebound Skin: positive: Warm, Dry, Other (Multiple areas of ecchymosis over her upper extremities.) Extremities: positive: No pedal edema Neurologic/Psychiatric: negative: Disoriented to person, Disoriented to place - Lab Results Fish Bones: 05/12/21 04:25 05/12/21 04:25 Other Labs: Lab Results x24hrs 05/12/21 05/12/21 Range/Units 04:25 04:25 WBC 12.3 H (4.8-10.8) x10^3/uL RBC 3.30 L (4.20-5.40) 10^6/uL Hgb 10.9 L (12.0-16.0) g/dL Hct 34.1 L (37.0-47.0) % MCV 103.3 H (81.0-99.0) fL MCH 33.0 H (27.0-31.0) pg MCHC 32.0 (32.0-36.0) g/dL RDW 15.6 H (12.0-15.0) % Plt Count 169 (130-450) 10^3/uL MPV 12.8 H (7.9-10.8) fL Neut # (Auto) 9.2 H (1.5-6.6) 10^3/uL Lymph # (Auto) 2.0 (1.5-3.5) 10^3/uL [place] # (Auto) 0.8 (0.0-1.0) 10^3/uL Eos # (Auto) 0.2 (0.0-0.7) 10^3/uL Baso # (Auto) 0.1 (0.0-0.1) 10^3/uL Absolute Nucleated RBC 0.00 x10^3/uL Nucleated RBC % 0.0 /100WBC Sodium 141 (135-145) mmol/L Potassium 3.4 L (3.5-5.0) mmol/L Chloride 113 H (101-111) mmol/L Carbon Dioxide 18 L (21-32) mmol/L Anion Gap 10.0 (6-13) BUN 14 (6-20) mg/dL Creatinine 0.7 (0.4-1.0) mg/dL Estimated GFR (MDRD) 80 L (>89) Glucose 68 L (70-100) mg/dL Calcium 8.0 L (8.5-10.3) mg/dL Total Bilirubin 1.2 H (0.2-1.0) mg/dL AST 35 (10-42) IU/L ALT 54 (10-60) IU/L Alkaline Phosphatase 43 (42-121) IU/L Total Protein 6.2 L (6.7-8.2) g/dL Albumin 2.7 L (3.2-5.5) g/dL Globulin 3.5 (2.1-4.2) g/dL Albumin/Globulin Ratio 0.8 L (1.0-2.2) Lipase 58 H (22-51) U/L Assessment/Plan - Problem List (1) Pancreatitis Impression: This is improved. CT showed evidence of pancreatitis and her lipase peaked at 900. Lipase is now the normal limits and her pain is improved although still present. We do not have a clear cause of her pancreatitis. She has a history of a cholecystectomy and her triglycerides were not elevated. Her LFTs were initially elevated on admission but have improved on a daily basis. CT showed no biliary ductal dilation. I have ordered for a right upper quadrant ultrasound today for further evaluation of this. If this is unremarkable then she will likely need an endoscopic ultrasound on an outpatient basis or MRCP to evaluate for potential underlying mass. We will we will place her on liquid diet after the ultrasound given she still has abdominal pain and we will look to advance slowly. Continue pain control with morphine and oxycodone as needed. Qualifiers: Chronicity: acute Pancreatitis type: unspecified pancreatitis type Acute pancreatitis complication: unspecified Qualified Code(s): K85.90 - Acute pancreatitis without necrosis or infection, unspecified (2) Coffee ground emesis Impression: She reportedly had coffee-ground emesis prior to admission but there has been no recurrence of this. Gastric occult blood was positive. Her hemoglobin has been stable and yesterday her Eliquis was resumed. We will monitor for evidence of bleeding and will continue Protonix 40 mg daily. We will discuss with general surgery if they will consider endoscopy. (3) Leukocytosis Impression: Her white count is slightly increased today at 12,000. This is likely reactive secondary to the pancreatitis. Her urine culture grew Klebsiella but this is asymptomatic bacteriuria we will not treat this. (4) Asymptomatic bacteriuria Impression: Urine culture grew Klebsiella and she received 3 days of IV ceftriaxone. She has no symptoms suggesting infection and we will discontinue antibiotics. (5) Atrial fibrillation Impression: She is rate controlled on her current dose of metoprolol which we will continue. We have also resumed Eliquis we will monitor for evidence of bleeding. Qualifiers: Atrial fibrillation type: paroxysmal Qualified Code(s): I48.0 - Paroxysmal atrial fibrillation (6) History of coronary artery disease Impression: Stable. Continue Eliquis and metoprolol.
[2021-05-12] MEDS ORDERED: D5.45NS W/20 MEQ KCL 1,000 ML IV SCH (08:00)
[2021-05-12] MEDS ORDERED: PANTOPRAZOLE 40 MG TABLET PO SCH (09:00)
[2021-05-12] MEDS: METOPROLOL SUCCINATE 25 MG TABLET PO SCH (10:35)
[2021-05-12] MEDS: guaiFENesin 600 MG TABLET PO SCH ×2 (10:36→20:56)
[2021-05-12] MEDS: APIXABAN 5 MG TABLET PO SCH ×2 (10:36→20:56)
[2021-05-12] MEDS: NYSTATIN POWDER 15 GM TOP SCH ×2 (10:37→19:30)
[2021-05-12] MEDS: POTASSIUM CHLOR 10 MEQ/100 ML 10 MEQ/100 ML BAG IV SCH ×2 (10:37→12:26)
[2021-05-12] MEDS: PANTOPRAZOLE 40 MG TABLET PO SCH (10:47)
--- NOTE | 2021-05-12 12:10 | Ultrasound Report ---
PROCEDURE: Abdomen Limited INDICATIONS: Pancreatitis. Elevated LFT's. TECHNIQUE: Real-time focused scanning was performed of the abdomen, with image documentation. COMPARISON: CT abdomen/pelvis 05/09/2021, ultrasound 12/24/2019 FINDINGS: The liver is normal in size with mildly coarsened echotexture. Possible subtle nodularity of the live r surface may be present. A cyst in the right hepatic lobe measures 0.9 x 0.7 x 0.7 cm. Status post cholecystectomy. The common bile duct measures up to 14 mm in diameter proximally, and 8 mm distally near the pancreat ic head. There is mild prominence of the central intrahepatic biliary ducts. The main pancreatic duct measures 4 mm in diameter. The visualized portion of the pancreatic head is otherwise grossly unremarkable. Right kidney measures 10.4 cm in length with cortical thickness of 1.4 cm. No hydronephrosis. A small amount of free fluid is seen in the upper abdomen. IMPRESSION: 1.Mild intrahepatic and extrahepatic biliary ductal dilatation to the level of the pancreatic head ma y be related to partial obstruction from recent pancreatitis and/or chronic dilation related to prior cholecystectomy. No obstructing calculus is seen. 2.Status post cholecystectomy. 3.Possible subtle nodularity of the liver surface and coarsened echotexture are nonspecific, but may indicate mild or developing cirrhosis. Recommend clinical correlation. 4.Small amount of free fluid in the right upper quadrant is likely reactive. Reviewed by: Devin Morrison MD on 05/12/2021 12:09 PM PST Approved by: Devin Morrison MD on 05/12/2021 12:09 PM PST Station ID: [id number]
[2021-05-12] MEDS: oxyCODONE 5 MG TABLET PO PRN (17:57)
[2021-05-12] MEDS: SODIUM CHLORIDE FLUSH 0.9% 10 ML SYRINGE IVP PRN (18:06)
[2021-05-12] MEDS: ZINC OXIDE 20% OINT 30 GM TUBE TOP PRN (19:30)
[2021-05-12] MEDS ORDERED: SODIUM CHLORIDE 0.9% 500 ML IV PRN (19:31)
[2021-05-13] MEDS: SODIUM CHLORIDE FLUSH 0.9% 10 ML SYRINGE IVP SCH ×3 (03:15→15:42)
[2021-05-13 05:49] LABS: BASOPHILS # (AUTO) 0.1 10^3/uL (0.0-0.1); BASOPHILS % (AUTO) 0.5 %; EOSINOPHILS # (AUTO) 0.3 10^3/uL (0.0-0.7); EOSINOPHILS % (AUTO) 2.5 %; HCT - HEMATOCRIT 33.9 % (37.0-47.0); LYMPHOCYTES # (AUTO) 2.3 10^3/uL (1.5-3.5); LYMPHOCYTES % (AUTO) 21.3 %; MEAN CORPUSCULAR HEMOGLOBIN 32.4 pg (27.0-31.0); MEAN CORPUSCULAR HGB CONC 32.4 g/dL (32.0-36.0); MONOCYTES # (AUTO) 0.9 10^3/uL (0.0-1.0); MONOCYTES % (AUTO) 8.1 %; NEUTROPHILS # (AUTO) 7.1 10^3/uL (1.5-6.6); NEUTROPHILS % (AUTO) 67.1 %; PLT - PLATELET COUNT 185 10^3/uL (130-450); RED BLOOD COUNT 3.39 10^6/uL (4.20-5.40); RED CELL DISTRIBUTION WIDTH 15.3 % (12.0-15.0); WHITE BLOOD COUNT 10.5 x10^3/uL (4.8-10.8)
[2021-05-13 06:07] LABS: ALBUMIN 2.6 g/dL (3.2-5.5); BILIRUBIN,DIRECT 0.3 mg/dL (0.1-0.5); BILIRUBIN,TOTAL 1.1 mg/dL (0.2-1.0); CALCIUM 8.2 mg/dL (8.5-10.3); CREATININE 0.7 mg/dL (0.4-1.0); POTASSIUM 3.6 mmol/L (3.5-5.0); TOTAL PROTEIN 5.9 g/dL (6.7-8.2)
[2021-05-13] MEDS: PANTOPRAZOLE 40 MG TABLET PO SCH (06:36)
[2021-05-13] MEDS: APIXABAN 5 MG TABLET PO SCH ×2 (08:45→21:47)
[2021-05-13] MEDS: guaiFENesin 600 MG TABLET PO SCH ×2 (08:45→21:47)
[2021-05-13] MEDS: NYSTATIN POWDER 15 GM TOP SCH ×2 (08:45→21:47)
[2021-05-13] MEDS: polyethylene glycoL 3350 17 GM PACKET PO SCH (08:55)
[2021-05-13] MEDS ORDERED: METOPROLOL SUCCINATE 25 MG TABLET PO SCH (09:00)
[2021-05-13] MEDS: oxyCODONE 5 MG TABLET PO PRN ×2 (09:27→14:03)
[2021-05-13] MEDS: ACETAMINOPHEN 500 MG TABLET PO SCH ×2 (11:32→21:47)
--- NOTE | 2021-05-13 11:45 | XRAY Report ---
PROCEDURE: Foot 3 View RT INDICATIONS: MTP and arch pain. Erythema. TECHNIQUE: 4 views of the foot were acquired. COMPARISON: None. FINDINGS: BONES: No acute, displaced fracture or dislocation. Large calcaneal enthesophytes. Extension at the M TPs and flexion at the PIPs. SOFT TISSUES: No focal abnormality. IMPRESSION: 1.No acute osseous abnormality. Reviewed by: Fox Trevizo MD on 05/13/2021 11:44 AM [facility] Approved by: Fox Trevizo MD on 05/13/2021 11:44 AM [facility] Station ID: [id number]
--- NOTE | 2021-05-13 12:15 | PROVIDER PROGRESS NOTE ---
Subjective - Prog Note Date Prog Note Date: 05/13/21 - Subjective Subjective: Her abdominal pain is much improved today. No nausea or vomiting. She will have a bowel movement yesterday. She is requiring less narcotics. Her biggest complaint today is right toe pain that began this morning and radiates to the arch of her foot. It is quite sharp in nature and is worse with activity as she puts weight on that foot. She denies a history of gout or some episode of pain in the past. Current Medications - Current Medications Current Medications: Active Medications Acetaminophen (Acetaminophen 500 Mg Tablet) 1,000 mg PO TID [facility] Last Admin: 05/13/21 11:32 Dose: 1,000 mg Albuterol (Albuterol Neb 2.5 Mg/3 Ml) 2.5 mg INH RTQ4H PRN PRN Reason: Wheezing Last Admin: 05/10/21 16:51 Dose: 2.5 mg Apixaban (Apixaban 5 Mg Tablet) 5 mg PO BID [facility] Last Admin: 05/13/21 08:45 Dose: 5 mg Guaifenesin (Guaifenesin 600 Mg Tablet) 600 mg PO BID [facility] Last Admin: 05/13/21 08:45 Dose: 600 mg Sodium Chloride (Normal Saline 0.9%) 500 mls @ 20 mls/hr IV Q24H PRN PRN Reason: TKO RATE Metoprolol Succinate (Metoprolol Succinate 25 Mg Tablet) 50 mg PO DAILY [facility] Last Admin: 05/13/21 08:45 Dose: 50 mg Multi-Ingredient Ointment (Zinc Oxide 20% Oint 30 Gm Tube) 1 applic TOP PRN PRN PRN Reason: Skin Care Last Admin: 05/12/21 19:30 Dose: 1 applic Nystatin (Nystatin Powder 15 Gm) 1 applic TOP BID [facility] Last Admin: 05/13/21 08:45 Dose: 1 applic Ondansetron HCl (Ondansetron 4 Mg/2 Ml Vial) 4 mg IVP Q6HR PRN PRN Reason: Nausea / Vomiting Last Admin: 05/12/21 22:21 Dose: 4 mg Oxycodone HCl (Oxycodone 5 Mg Tablet) 5 mg PO Q4HR PRN PRN Reason: Pain 5 to 7 Last Admin: 05/13/21 09:27 Dose: 5 mg Pantoprazole Sodium (Pantoprazole 40 Mg Tablet) 40 mg PO QDAC [facility] Last Admin: 05/13/21 06:36 Dose: 40 mg Polyethylene Glycol (Polyethylene Glycol 3350 17 Gm Packet) 17 gm PO DAILY [facility] Last Admin: 05/13/21 08:55 Dose: 17 gm Sodium Chloride (Sodium Chloride Flush 0.9% 10 Ml Syringe) 10 ml IVP PRN PRN PRN Reason: NEEDED PER PROVIDER ORDERS Last Admin: 05/12/21 18:06 Dose: 10 ml Sodium Chloride (Sodium Chloride Flush 0.9% 10 Ml Syringe) 10 ml IVP 0100,0900,1700 [facility] Last Admin: 05/13/21 08:45 Dose: 10 ml Albuterol Sulfate [Albuterol Sulfate Hfa] 2 puffs INH Q4H PRN 12/25/19 Apixaban [Eliquis] 5 mg PO BID 12/25/19 Metoprolol Succinate [Toprol Xl] 25 mg PO DAILY 12/25/19 Objective - Vital Signs/Intake & Output Reviewed Vital Signs: Yes Vital Signs: Vital Signs x48h Temp Pulse Resp BP BP Pulse Ox 05/13/21 08:48 93 151/56 H 05/13/21 08:44 107 H 157/67 H 05/13/21 08:10 36.8 C 91 18 162/78 H 96 05/13/21 05:37 37.2 C 98 17 145/68 H 96 Intake & Output: Intake & Output 05/10/21 05/11/21 05/12/21 05/13/21 23:59 23:59 23:59 23:59 Intake Total 4277.5 3342.5 4031.667 480 Output Total 600 700 800 525 Balance 3677.5 2642.5 3231.667 -45 - Objective General Appearance: positive: No acute distress, Alert Eyes Bilateral: positive: Normal inspection, Conjunctivae nml ENT: positive: ENT inspection nml Neck: positive: Nml inspection Respiratory: positive: No respiratory distress. negative: Wheezes, Rales Cardiovascular: positive: Irregularly irregular. negative: Tachycardia Abdomen: positive: Non-tender, No distention. negative: Tenderness Skin: positive: Warm, Dry Extremities: positive: No pedal edema, Other (The right foot has osteoarthritic changes. There is edema of the first metatarsophalangeal joint. It is tender to palpation over the plantar aspect of the foot radiating to the arch. The joint is warm to touch.) Neurologic/Psychiatric: negative: Disoriented to person - Lab Results Fish Bones: 05/13/21 04:53 05/13/21 04:53 Other Labs: Lab Results x24hrs 05/13/21 05/13/21 Range/Units 04:53 04:53 WBC 10.5 (4.8-10.8) x10^3/uL RBC 3.39 L (4.20-5.40) 10^6/uL Hgb 11.0 L (12.0-16.0) g/dL Hct 33.9 L (37.0-47.0) % MCV 100.0 H (81.0-99.0) fL MCH 32.4 H (27.0-31.0) pg MCHC 32.4 (32.0-36.0) g/dL RDW 15.3 H (12.0-15.0) % Plt Count 185 (130-450) 10^3/uL MPV 12.0 H (7.9-10.8) fL Neut # (Auto) 7.1 H (1.5-6.6) 10^3/uL Lymph # (Auto) 2.3 (1.5-3.5) 10^3/uL Dougherty # (Auto) 0.9 (0.0-1.0) 10^3/uL Eos # (Auto) 0.3 (0.0-0.7) 10^3/uL Baso # (Auto) 0.1 (0.0-0.1) 10^3/uL Absolute Nucleated RBC 0.00 x10^3/uL Nucleated RBC % 0.0 /100WBC Sodium 138 (135-145) mmol/L Potassium 3.6 (3.5-5.0) mmol/L Chloride 111 (101-111) mmol/L Carbon Dioxide 18 L (21-32) mmol/L Anion Gap 9.0 (6-13) BUN 10 (6-20) mg/dL Creatinine 0.7 (0.4-1.0) mg/dL Estimated GFR (MDRD) 80 L (>89) Glucose 123 H (70-100) mg/dL Calcium 8.2 L (8.5-10.3) mg/dL Total Bilirubin 1.1 H (0.2-1.0) mg/dL Direct Bilirubin 0.3 (0.1-0.5) mg/dL AST 22 (10-42) IU/L ALT 37 (10-60) IU/L Alkaline Phosphatase 39 L (42-121) IU/L Total Protein 5.9 L (6.7-8.2) g/dL Albumin 2.6 L (3.2-5.5) g/dL Globulin 3.3 (2.1-4.2) g/dL Assessment/Plan - Problem List (1) Pancreatitis Impression: This is much improved. Her lipase is within normal limits and her pain is better controlled today. The etiology of the pancreatitis is still not clear. Ultrasound yesterday showed some ductal dilation which may be due to a cholecystectomy or the acute pancreatitis. There is no obvious stone. I discussed with her that we could consider MRCP but this could also be done on an outpatient basis and she may ultimately need an endoscopic ultrasound. We we will advance her diet today and if he does well the plan will be to discharge home tomorrow. If she has further pain we will consider MRCP tomorrow. Qualifiers: Chronicity: acute Pancreatitis type: unspecified pancreatitis type Acute pancreatitis complication: unspecified Qualified Code(s): K85.90 - Acute pancreatitis without necrosis or infection, unspecified (2) Coffee ground emesis Impression: There has been no evidence of coffee-ground emesis during this hospitalization her hemoglobin has been stable. Her Eliquis was resumed without evidence of bleeding. We will continue PPI. (3) Pain of right great toe Impression: This is new onset and not associated with trauma. Differential includes gout versus arthritis. I ordered foot x-rays morning which showed no acute abnormalities. We will trial Tylenol 1 g 3 times daily and if there is no relief then we will give her a dose of colchicine. Check a uric acid. We will hold off on NSAIDs given she is on Eliquis and the concern that she had coffee- ground emesis initially. (4) Leukocytosis Impression: This is resolved and was likely reactive secondary to pancreatitis. (5) Asymptomatic bacteriuria Impression: Urine culture grew Klebsiella but she has no symptoms of urinary tract inf ection. She completed 3 days of ceftriaxone. Antibiotics have been discontinued. (6) Atrial fibrillation Impression: She is rate controlled. Continue metoprolol and Eliquis. Qualifiers: Atrial fibrillation type: paroxysmal Qualified Code(s): I48.0 - Paroxysmal atrial fibrillation (7) History of coronary artery disease Impression: Stable. Continue home medications.
[2021-05-13] MEDS ORDERED: COLCHICINE 0.6 MG TABLET PO ONE (16:00)
[2021-05-14] MEDS: SODIUM CHLORIDE FLUSH 0.9% 10 ML SYRINGE IVP SCH ×2 (00:40→08:08)
[2021-05-14] MEDS: oxyCODONE 5 MG TABLET PO PRN (00:40)
[2021-05-14 05:49] LABS: BASOPHILS % (AUTO) 0.4 %; EOSINOPHILS # (AUTO) 0.2 10^3/uL (0.0-0.7); EOSINOPHILS % (AUTO) 3.5 %; HCT - HEMATOCRIT 30.5 % (37.0-47.0); HGB - HEMOGLOBIN 10.1 g/dL (12.0-16.0); LYMPHOCYTES # (AUTO) 1.6 10^3/uL (1.5-3.5); LYMPHOCYTES % (AUTO) 23.1 %; MEAN CORPUSCULAR HEMOGLOBIN 32.7 pg (27.0-31.0); MEAN CORPUSCULAR HGB CONC 33.1 g/dL (32.0-36.0); MEAN CORPUSCULAR VOLUME 98.7 fL (81.0-99.0); MEAN PLATELET VOLUME 11.8 fL (7.9-10.8); MONOCYTES # (AUTO) 0.7 10^3/uL (0.0-1.0); MONOCYTES % (AUTO) 9.5 %; NEUTROPHILS # (AUTO) 4.3 10^3/uL (1.5-6.6); NEUTROPHILS % (AUTO) 62.3 %; PLT - PLATELET COUNT 189 10^3/uL (130-450); RED BLOOD COUNT 3.09 10^6/uL (4.20-5.40); RED CELL DISTRIBUTION WIDTH 14.9 % (12.0-15.0); WHITE BLOOD COUNT 6.9 x10^3/uL (4.8-10.8)
[2021-05-14 06:06] LABS: ALBUMIN 2.3 g/dL (3.2-5.5); BILIRUBIN,DIRECT 0.3 mg/dL (0.1-0.5); BILIRUBIN,TOTAL 0.9 mg/dL (0.2-1.0); CALCIUM 8.2 mg/dL (8.5-10.3); CREATININE 0.6 mg/dL (0.4-1.0); POTASSIUM 3.6 mmol/L (3.5-5.0); TOTAL PROTEIN 5.5 g/dL (6.7-8.2); URIC ACID 4.4 mg/dL (2.6-7.2)
[2021-05-14] MEDS: PANTOPRAZOLE 40 MG TABLET PO SCH (06:59)
[2021-05-14] MEDS: ACETAMINOPHEN 500 MG TABLET PO SCH ×2 (07:03→13:58)
[2021-05-14] MEDS: NYSTATIN POWDER 15 GM TOP SCH (08:07)
[2021-05-14] MEDS: polyethylene glycoL 3350 17 GM PACKET PO SCH (08:07)
[2021-05-14] MEDS: APIXABAN 5 MG TABLET PO SCH (08:07)
[2021-05-14] MEDS: ZINC OXIDE 20% OINT 30 GM TUBE TOP PRN (08:08)
[2021-05-14] MEDS: guaiFENesin 600 MG TABLET PO SCH (08:08)
[2021-05-14] MEDS ORDERED: amLODIPine 5 MG TABLET PO SCH (09:00)
[2021-05-14] MEDS ORDERED: METOPROLOL SUCCINATE 50 MG TABLET PO SCH (09:00)
[2021-05-14] MEDS ORDERED: COLCHICINE 0.6 MG TABLET PO SCH (10:00)
[2021-05-14] MEDS: ALBUTEROL NEB 2.5 MG/3 ML INH PRN (10:23)
--- NOTE | 2021-05-14 10:27 | Discharge Plan ---
Discharge Plan Problem Reviewed?: Yes Disposition: Home Health Service Condition: Stable Prescriptions: oxyCODONE [Roxicodone] 5 mg PO Q6HR PRN #10 tablet PRN Reason: Pain 5 to 7 Colchicine [Colcrys] 0.6 mg PO DAILY #7 tablet polyethylene glycoL 3350 [Miralax] 17 gm PO DAILY #10 packet amLODIPine [Norvasc] 5 mg PO DAILY #30 tablet Pantoprazole [Protonix] 40 mg PO DAILY #30 tablet Metoprolol Succinate [Toprol Xl] 50 mg PO DAILY #30 tablet Acetaminophen [Tylenol] 1,000 mg PO TID #30 tablet Diet: Soft Activity Restrictions: Activity as Tolerated Assistance Devices: Walker Instruction Topics: Colchicine tablets or capsules, Polyethylene Glycol powder, Acetaminophen tablets or caplets, Metoprolol tablets, Oxycodone tablets or capsules, Amlodipine, Pancreatitis Acute Dc Health Concerns: You were admitted to the hospital because of pancreatitis. The cause of this is not clear. The most common causes are alcohol or gallstones you do not drink alcohol and you had your gallbladder removed. Your pain has since been controlled and you are tolerating a diet. You also had right toe pain which is felt to potentially be secondary to gout. Plan of Treatment: Please continue with a soft diet as tolerated and advance over the next few days. You may take oxycodone as needed for pain control. Please follow-up with your primary care physician and a referral to GI as recommended for consideration of endoscopic ultrasound or MRCP for evaluation of what may have caused the pancreatitis. You may also take colchicine 0.6 mg a day until your right toe pain resolves. If your pain persists then please follow-up with your primary care physician or vacuum frame operator. The x-ray obtained did not show evidence of fracture or any abnormalities. Please do not take ibuprofen as this can increase your risk of bleeding. Please take Tylenol as needed for pain control. Please also begin to take amlodipine 5 mg to help with your blood pressure. I have increased the dose of the metoprolol to 50 mg once a day instead of 25 mg once a day to help control your blood pressure as well. You may also take MiraLAX daily as needed for constipation. Care Goals: The goal is to evaluate the etiology of your pancreatitis to prevent future episodes. Assessment: The patient expressed understanding of the treatment plan. Additional Instructions or Follow Up instructions: Please follow-up with your primary care physician within 1 week. If your foot pain persistent please see a vacuum frame operator. Please discuss with your primary care physician regarding a referral to GI for consideration of further work-up of the cause of your pancreatitis. Follow-Up Care: Home Health - PT No Smoking: If you smoke, Please STOP! Call for help. Follow-up with: Perlita Rodgers MD [Primary Care Provider] -
[2021-05-14 12:26] VITALS: BP 146/62
--- NOTE | 2021-05-14 15:44 | DISCHARGE SUMMARY ---
Discharge Summary Admit Date: 05/09/21 Discharge Date: 05/14/21 Discharging Provider: Heladio Palumbo Primary Care Provider: Perlita Rodgers Code Status: Do Not Attempt Resuscitation Condition at Discharge: Stable Discharge Disposition: Home Health Service - DIAGNOSES Admission Diagnoses: Pancreatitis Leukocytosis GI bleed Atrial fibrillation Hypertension History of coronary artery disease Discharge Diagnoses with Status of Each Condition: Pancreatitis - resolved. Coffee-ground emesis - resolved. Pain of right great toe - improved. Leukocytosis - resolved. Asymptomatic bacteriuria - stable. Atrial fibrillation - stable. History of coronary artery disease - stable. - HPI History of Present Illness: 86 year old female presented to the hospital with a chief complaint of nausea, vomiting, and abdominal pain for 1 day. The pain is described as "intense, 10/10" that feels "similar to when I had my gallbladder removed". Pain is made worse with movement and improves with rest. She currently denies nausea and reports that her pain is well controlled, 0/10. In the ED she had an episode of coffee ground emesis that was positive for occult blood. She denies previous episodes with coffee ground emesis or black/ tarry stools. CT of the abdomen showed "acute pancreatitis without pseudocyst or abscess". Admission Chuy's Criteria is 4 and her Lipase is 720. Her past medical history includes atrial fibrillation for 10 years which she takes Eliquis and Metroprol. She also reports asthma which is well controlled with an as needed Albuterol inhaler, last use was several weeks ago. 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 She was recently hospitalized for 4 days with [facility] in January,. - HOSPITAL COURSE Hospital Course: She was admitted for acute pancreatitis although the etiology of this was not clear initially. She was made n.p.o. and treated with IV fluids and pain control. Her LFTs were initially elevated but these improved on a daily basis and are now within normal limits. Her lipase also trended down on a daily basis. We did order an ultrasound which showed mild ductal dilation but no evidence of gallstones and was felt that the dilation was likely due to history of cholecystectomy or the acute pancreatitis. Her triglycerides were within normal limits. We discussed with the patient that we do not have a clear cause of her pancreatitis but that it may potentially be idiopathic but further work- up can be considered on outpatient basis including MRCP and endoscopic ultrasound. We did not do MRCP during his hospitalization as her pain improved and her LFTs were within normal limits and it was thought that it would not be of much yield at this time and that she would benefit from following up with GI for their input. Her diet was advanced and she has been tolerating a soft diet. She was encouraged to follow-up with her primary care physician and to consider a GI referral. She reportedly had coffee-ground emesis prior to admission but she had no episodes of emesis during this hospitalization. She was positive for occult blood but her hemoglobin remained stable despite continuing her Eliquis. We started her on a PPI and this was prescribed for her. She did develop acute right toe pain the day prior to discharge. X-rays were negative. Concern was potential gout and so she was given colchicine as he wanted to avoid NSAIDs given her history of coffee-ground emesis. Her pain improved and she was prescribed colchicine on discharge to take until her pain completely resolved. She was encouraged to follow-up with her primary care physician and to consider a podiatry consult. - ALLERGIES Allergies/Adverse Reactions: Allergies Allergy/AdvReac Type Severity Reaction Status Date / Time amoxicillin Allergy Hives Verified 05/09/21 14:07 iodine Allergy Hives Verified 05/09/21 03:00 shellfish derived Allergy Hives Verified 05/09/21 03:00 hydromorphone [From Dilaudid] AdvReac Hallucinati Verified 05/12/21 19:29 ons lactose AdvReac Cramps Verified 05/09/21 03:00 - MEDICATIONS Home Medications: Ambulatory Orders Medication Instructions Recorded Confirmed Albuterol Sulfate [Albuterol 2 puffs INH Q4H PRN 12/25/19 05/09/21 Sulfate Hfa] Apixaban [Eliquis] 5 mg PO BID 12/25/19 05/09/21 Acetaminophen [Tylenol] 1,000 mg PO TID #30 tablet 05/14/21 Colchicine [Colcrys] 0.6 mg PO DAILY #7 tablet 05/14/21 Metoprolol Succinate [Toprol Xl] 50 mg PO DAILY #30 tablet 05/14/21 amLODIPine [Norvasc] 5 mg PO DAILY #30 tablet 05/14/21 oxyCODONE [Roxicodone] 5 mg PO Q6HR PRN #10 tablet 05/14/21 polyethylene glycoL 3350 [Miralax] 17 gm PO DAILY #10 packet 05/14/21 - PHYSICAL EXAM AT DISCHARGE General Appearance: positive: No acute distress, Alert Eyes Bilateral: positive: Normal inspection, Conjunctivae nml ENT: positive: ENT inspection nml Neck: positive: Nml inspection Respiratory: positive: No respiratory distress. negative: Wheezes, Rales Cardiovascular: positive: Irregularly irregular. negative: Tachycardia, Systolic murmur Abdomen: positive: Nml bowel sounds, No distention, Tenderness (Mild tenderness.). negative: Guarding, Rebound Skin: positive: Warm, Dry Extremities: positive: No pedal edema Neurologic/Psychiatric: negative: Disoriented to person, Disoriented to place Physical Exam Other/Comments: Vital Signs - 24 hr 05/13/21 05/14/21 05/14/21 20:39 00:35 05:34 Temperature 36.5 C 36.5 C 36.3 C L Heart Rate Heart Rate [ 113 H 93 75 Brachial] Respiratory 17 20 18 Rate Blood Pressure 148/70 H 148/97 H 151/75 H [Right Brachial artery] O2 Saturation 98 98 96 05/14/21 05/14/21 05/14/21 07:16 10:24 12:23 Temperature 36.6 C 36.6 C Heart Rate 91 Heart Rate [ 71 76 Brachial] Respiratory 20 18 19 Rate Blood Pressure 169/71 H 146/62 H [Right Brachial artery] O2 Saturation 97 98 Oxygen O2 Source [With Activity] Room air O2 Source Room air Oxygen Flow Rate 2 - LABS Result Diagrams: 05/14/21 05:13 05/14/21 05:13 - DIAGNOSTIC IMAGING Diagnostic Imaging Results: Final report reviewed - FOLLOW UP Follow Up: She was asked to follow-up with her primary care physician in 1 week and to consider referral to gastroenterology for further work-up of the cause of her pancreatitis. We discussed that she may benefit potential from a MRCP or endoscopic ultrasound. - TIME SPENT Time Spent in Discharge (Minutes): 36
== END 2021-05-14 14:55 | disposition home health service (06) | DRG 439 ==
LOC: ED 02:43 → MS2 07:28
PROVIDERS: ADMIT Internal Medicine; ATTEND Internal Medicine
DX: K85.90 Acute pancreatitis without necrosis or infection, unspecified (principal); K92.0 Hematemesis; N39.0 Urinary tract infection, site not specified; I44.7 Left bundle-branch block, unspecified; I48.91 Unspecified atrial fibrillation; D72.829 Elevated white blood cell count, unspecified; I10 Essential (primary) hypertension; I25.10 Atherosclerotic heart disease of native coronary artery without angina pectoris; R94.31 Abnormal electrocardiogram [ECG] [EKG]; Z20.822 Contact with and (suspected) exposure to COVID-19; I25.2 Old myocardial infarction; I48.0 Paroxysmal atrial fibrillation; M10.9 Gout, unspecified; M19.90 Unspecified osteoarthritis, unspecified site; J45.909 Unspecified asthma, uncomplicated; F41.9 Anxiety disorder, unspecified; K08.109 Complete loss of teeth, unspecified cause, unspecified class; B96.1 Klebsiella pneumoniae [K. pneumoniae] as the cause of diseases classified elsewhere; S02.5XXA Fracture of tooth (traumatic), initial encounter for closed fracture; X58.XXXA Exposure to other specified factors, initial encounter; R32 Unspecified urinary incontinence; R68.2 Dry mouth, unspecified; R82.71 Bacteriuria; Z66 Do not resuscitate; Z79.01 Long term (current) use of anticoagulants; Z79.899 Other long term (current) drug therapy; Z82.49 Family history of ischemic heart disease and other diseases of the circulatory system; Z88.0 Allergy status to penicillin; Z88.8 Allergy status to other drugs, medicaments and biological substances; Z90.49 Acquired absence of other specified parts of digestive tract; Z90.710 Acquired absence of both cervix and uterus; Z91.013 Allergy to seafood; Z95.1 Presence of aortocoronary bypass graft
CPT/HCPCS: 36415; 51702; 73630; 74176; 76705; 80048; 80053; 80061; 80076; 81001; 83615; 83690; 83735; 84550; 85025; 86850; 86900; 86901; 87040; 87077; 87086; 87181; 87631; 93005; 94640; 96365; 96375; 96376; 97161; 97530; 99284; 99285; A9270; J1170; 0202U; 81003; 83721

== ENCOUNTER 2022-08-26 07:26 | Day surgery (SDC) | payer MEDICARE, MEDICAID ==
[~2022-08-26 07:26] MED LIST changes: +CYCLOPENTOLATE 1% OPHTH DROPS 2 ML ONE; +KETOROLAC 0.45% OPHTH DROPS ONE; +PROPARACAINE 0.5% OPHTH DROPS 15 ML ONE
[2022-08-26] MEDS ORDERED: LACTATED RINGERS 1,000 ML IV ONE ×2 (08:04→09:02)
--- NOTE | 2022-08-26 08:12 | ANESTHESIA ---
Pre-Anesthesia VS, & Labs - Diagnosis right senile cataract - Procedure right cataract extraction with IOL Vital Signs: Temp Pulse Resp BP Pulse Ox O2 Flow Rate 36.4 C L 62 13 156/75 H 100 08/26/22 07:42 08/26/22 07:42 08/26/22 07:42 08/26/22 07:42 08/26/22 07:42 Height: 5 ft 2 in Weight (kg): 85 kg Body Mass Index: 34.2 BMI Classification: Obese - NPO >8 hours - Is Patient ?: No Home Medications and Allergies Apixaban [Eliquis] 5 mg PO BID 12/25/19 Allergies/Adverse Reactions: Allergies Allergy/AdvReac Type Severity Reaction Status Date / Time amoxicillin Allergy Hives Verified 05/09/21 14:07 iodine Allergy Hives Verified 05/09/21 03:00 shellfish derived Allergy Hives Verified 05/09/21 03:00 hydromorphone [From Dilaudid] AdvReac Hallucinati Verified 05/12/21 19:29 ons lactose AdvReac Cramps Verified 05/09/21 03:00 Anes History & Medical History - Anesthetic History Anesthesia Complications: reports: No previous complications - Medical History Cardiovascular: reports: Hypertension, Coronary artery disease, [place], Atrial fibrillation Pulmonary: reports: Asthma Gastrointestinal: reports: Other Urinary: reports: Kidney stones Neuro: reports: None Musculoskeletal: reports: Osteoarthritis Endocrine/Autoimmune: reports: None Blood Disorders: reports: None Skin: reports: Other Smoking Status: Former smoker - Surgical History General: reports: Cholecystectomy Eyes Ears Nose Throat (EENT): reports: Tonsil/Adenoidectomy Cardiothoracic: reports: CABG Gynecologic: reports: Hysterectomy Orthopedic: reports: Other Exam General: Alert, Oriented x3 Dental: WNL, Dentures full Upper (edentulous) Mouth Opening: Greater than 4 Fingerbreadths Neck Mobility: Normal Mallampati classification: II Respiratory: Lungs clear Cardiovascular: Regular rate Plan Anesthesia Type: MAC Consent for Procedure(s) Verified and Reviewed: Yes Code Status: Attempt Resuscitation ASA classification: 3-Severe systemic disease Is this case an emergency?: No
[2022-08-26] MEDS ORDERED: MIDAZOLAM 2 MG/2 ML VIAL ONE (08:14)
[2022-08-26] MEDS ORDERED: fentaNYL 100 MCG/2 ML VIAL ONE (08:14)
[2022-08-26] MEDS ORDERED: BRIMONIDINE 0.2% OPHTH DROPS 5 ML ONE (08:17)
[2022-08-26] MEDS ORDERED: EPINEPHrine 1 MG/ML AMP ONE (08:17)
[2022-08-26] MEDS ORDERED: BSS/LIDOCAINE/EPINEPHRINE 1 ML VIAL ONE (08:17)
[2022-08-26] MEDS ORDERED: VANCOMYCIN OPHTH (TOPICAL) 10 MG/ML SYRINGE ONE (08:17)
[2022-08-26] MEDS ORDERED: TIMOLOL 0.5% OPHTH DROPS ONE (08:17)
[2022-08-26] MEDS ORDERED: TRIAMCIN/MOXIFLOX OPHTHALMIC 0.6 ML VIAL IO ONE ×2 (08:17→08:26)
[2022-08-26] MEDS ORDERED: BRIMONIDINE 0.2% OPHTH DROPS 5 ML OPTH ONE (08:25)
[2022-08-26] MEDS ORDERED: EPINEPHrine 1 MG/ML AMP IR ONE (08:25)
[2022-08-26] MEDS ORDERED: TIMOLOL 0.5% OPHTH DROPS OPTH ONE (08:25)
[2022-08-26] MEDS ORDERED: VANCOMYCIN OPHTH (TOPICAL) 10 MG/ML SYRINGE TOP ONE (08:26)
[2022-08-26] MEDS ORDERED: BSS/LIDOCAINE/EPINEPHRINE 1 ML SYRINGE IO ONE (08:26)
[2022-08-26] MEDS ORDERED: PROPARACAINE 0.5% OPHTH DROPS 15 ML EACHEYE ONE (08:26)
--- NOTE | 2022-08-26 09:17 | ANESTHESIA POST OP EVALUATION ---
Anesthesia Post Eval - Post Anesthesia Eval Vitals: Last Vital Signs Temp 36.5 C 08/26/22 09:04 Pulse 68 08/26/22 09:07 Resp 16 08/26/22 09:07 BP 134/67 H 08/26/22 09:07 Pulse Ox 100 08/26/22 09:07 O2 Flow Rate CV Function Including HR & BP: Stable Pain Control: Satisfactory Nausea & Vomiting: Negative Mental Status: Baseline Respiratory Status: Airway Patent Hydration Status: Satisfactory Anesthesia Complications: None
--- NOTE | 2022-08-26 09:20 | OPERATIVE REPORT ---
Operative Report - Other Other Information/Narrative: Date of Surgery: 08/26/22 Preop Dx: Visually significant cataract right eye. Cataract surgery was performed in the left eye on [id number]. Postop Dx: Same Procedure: Phacoemulsification with posterior chamber intraocular lens implant right eye Surgeon: Dr. Casper Hays Anesthesia: Monitored anesthesia care Complications: Posterior capsule rupture without vitreous prolapse. Operative Indications: This is a 87-year-old F with progressive vision loss in the right eye due to 4+ nuclear sclerotic and 3-4+ posterior subcapsular cataract. Best corrected visual acuity was 20/100 with glare to count fingers vision in the right eye. Indications for surgery were: - Overall decrease in vision - Difficulty reading - Difficulty driving in low light or at night - Difficulty driving at night because of headlights from other vehicles The patient was consented at length concerning the risks and benefits of cataract surgery after which the patient expressed a desire to proceed with surgery. Operative Procedure: The patient was taken into OR#3 and placed under monitored anesthesia care. A surgical time-out was conducted confirming correct patient, correct procedure, and correct surgical site. The patient was given topical anesthesia and then prepped and draped in the usual sterile fashion. The eye was entered at the 6 and 3 oclock positions. Intracameral Shugarcaine was injected into the anterior chamber followed by a dispersive viscoelastic. A continuous-tear curvilinear capsulorhexis was performed. The nucleus was hydrodissected and phacoemulsified. The cortex was evacuated using automated infusion and aspiration. However, at the end of cortical clean-up, what appeared to be a leaflet of cortex was observed superiorly but upon closer inspection looked more like lens capsule, which in fact it was. There was no posterior capsular support but no vitreous was seen to be prolapsing through the rent. A cohesive viscoelastic was injected into the ciliary sulcus and a 21.5 diopter 3-piece intraocular lens was inserted into the sulcus and the optic captured by the anterior capsular rhexis. Infusion and aspiration were used to evacuate the viscoelastic materials from the eye. The wounds were hydrated and the eye inflated to physiologic pressure using balanced salt solution. The pupil remained round with no peaking. Approximately 0.25ml of a mixture of triamcinolone and moxifloxacin was injected trans-sclerally into the vitreous in the inferotemporal quadrant using a 30 gauge cannula. An additional 0.25ml of a mixture of triamcinolone and moxifloxacin was injected subconjunctivally in the superior quadrant for infection and inflammation prophylaxis. Wound integrity was checked with Weck-Aspen sponges and there was no evidence of vitreous at the wounds. The patient was taken from the operating room in good condition and given post-op instructions.
[2022-08-26 09:21] VITALS: BP 144/92
== END 2022-08-26 07:27 | disposition home or self-care (01) ==
LOC: SDS 07:26
PROVIDERS: ATTEND Ophthalmology
DX: H25.811 Combined forms of age-related cataract, right eye (principal); Z87.891 Personal history of nicotine dependence; E66.9 Obesity, unspecified; Z68.34 Body mass index [BMI] 34.0-34.9, adult; I48.91 Unspecified atrial fibrillation; I25.10 Atherosclerotic heart disease of native coronary artery without angina pectoris; J45.909 Unspecified asthma, uncomplicated; I25.2 Old myocardial infarction; Z98.42 Cataract extraction status, left eye
CPT/HCPCS: 66984; A9270; J3490; J7120; V2632

== ENCOUNTER 2023-12-15 20:31 | Outpatient (CLI) | payer MEDICARE, MEDICAID | END 2023-12-15 20:32 | disposition critical access hospital (66) | LOC: EMS 20:31 | DX: R11.0 Nausea (principal); R10.9 Unspecified abdominal pain | CPT/HCPCS: A0425; A0429 ==

== ENCOUNTER 2023-12-15 20:34 | Emergency (ER) | payer MEDICARE, MEDICAID ==
[2023-12-15 21:05] LABS: BASOPHILS # (AUTO) 0.1 10^3/uL (0.0-0.1); BASOPHILS % (AUTO) 0.4 %; EOSINOPHILS % (AUTO) 0.2 %; HCT - HEMATOCRIT 34.8 % (37.0-47.0); HGB - HEMOGLOBIN 11.2 g/dL (12.0-16.0); LYMPHOCYTES # (AUTO) 0.6 10^3/uL (1.5-3.5); LYMPHOCYTES % (AUTO) 4.7 %; MEAN CORPUSCULAR HEMOGLOBIN 33.3 pg (27.0-31.0); MEAN CORPUSCULAR HGB CONC 32.2 g/dL (32.0-36.0); MEAN CORPUSCULAR VOLUME 103.6 fL (81.0-99.0); MEAN PLATELET VOLUME 12.2 fL (7.9-10.8); MONOCYTES # (AUTO) 0.4 10^3/uL (0.0-1.0); MONOCYTES % (AUTO) 2.8 %; NEUTROPHILS # (AUTO) 12.3 10^3/uL (1.5-6.6); NEUTROPHILS % (AUTO) 91.5 %; NRBC ABSOLUTE COUNT (AUTO) 0.02 x10^3/uL; NUCLEATED RED BLOOD CELLS AUTO 0.1 /100WBC; PLT - PLATELET COUNT 191 10^3/uL (130-450); RED BLOOD COUNT 3.36 10^6/uL (4.20-5.40); RED CELL DISTRIBUTION WIDTH 14.3 % (12.0-15.0); WHITE BLOOD COUNT 13.4 x10^3/uL (4.8-10.8)
--- NOTE | 2023-12-15 21:15 | ED Physician Documentation ---
PD HPI ABD PAIN - Stated complaint Stated Complaint: ABD PAIN, WEAKNESS - Chief complaint Chief Complaint: Abd Pain - History obtained from History obtained from: Patient - Additional information Additional information: BIBA. HPI from patient. 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 She has had as sociated nausea and vomiting. The pain is worse with palpation, movement. Patient has history of pancreatitis (was admitted to [facility] 2 years ago for pancreatitis). Past surgical history includes cholecystectomy approximately 4 years ago as well as lap band. Patient does not drink alcohol. Review of Systems Constitutional: reports: Reviewed and negative Cardiac: reports: Reviewed and negative Respiratory: reports: Reviewed and negative GI: reports: Abdominal Pain, Nausea, Vomiting PD PAST MEDICAL HISTORY - Past Medical History Past Medical History: Yes Cardiovascular: Hypertension, Coronary artery disease, [place], Atrial fibrillation Respiratory: Asthma, Other Neuro: None Endocrine/Autoimmune: None GI: Other BANK EXAMINER: None : Kidney stones HEENT: None Psych: Anxiety Musculoskeletal: Osteoarthritis Derm: Other - Past Surgical History Past Surgical History: Yes General: Cholecystectomy Ortho: Other /BANK EXAMINER: Hysterectomy Cardiovascular: CABG HEENT: Tonsil/Adenoidectomy - Present Medications Home Medications: Ambulatory Orders Medication Instructions Recorded Confirmed Apixaban [Eliquis] 5 mg PO BID 12/25/19 12/16/23 Metoprolol Succinate [Toprol Xl] 25 mg PO DAILY 07/04/23 12/16/23 - Allergies Allergies/Adverse Reactions: Allergies Allergy/AdvReac Type Severity Reaction Status Date / Time amoxicillin Allergy Hives Verified 12/15/23 20:40 iodine Allergy Hives Verified 12/15/23 20:40 shellfish derived Allergy Hives Verified 12/15/23 20:40 hydromorphone [From Dilaudid] AdvReac Hallucinati Verified 12/15/23 20:40 ons lactose AdvReac Cramps Verified 12/15/23 20:40 - Social History Does the pt smoke?: No Smoking Status: Never smoker Does the pt drink ETOH?: No Does the pt have substance abuse?: No - Immunizations Immunizations are current?: Yes - POLST Patient has POLST: No POLST Status: DNR (Discussed with Pt, she elected to be DNR status) PD ED PE NORMAL - Vitals Vital signs reviewed: Yes - General General: Alert and oriented X 3, Well developed/nourished, Other (appears to be in moderate painful distress) - Cardiac Cardiac: No murmur - Respiratory Respiratory: No respiratory distress, Clear bilaterally - Abdomen Abdomen: Soft, Non distended - Extremities Extremities: No edema PD ED PE EXPANDED - Cardiac Cardiac: Irregularly irregular - Abdomen Abdomen: Tender to palpation (TTP across upper abdomen, most pronounced RUQ and epigastrium), Guarding (voluntary). No: Rebound Results - Vitals Vitals: Vital Signs - 24 hr 12/15/23 12/15/23 12/15/23 20:40 20:45 21:06 Temperature 36.5 C Heart Rate 82 114 H 115 H Respiratory 16 20 Rate Blood Pressure 170/134 H 170/134 H 147/97 H O2 Saturation 100 100 97 If not protocol : Oxygen Flow, liters/minute 12/15/23 12/16/23 12/16/23 22:46 00:00 02:00 Temperature 36.2 C L Heart Rate 81 87 77 Respiratory 16 16 17 Rate Blood Pressure 165/87 H 132/74 H 139/59 H O2 Saturation 94 97 98 If not protocol : Oxygen Flow, liters/minute 12/16/23 12/16/23 12/16/23 04:00 05:10 07:00 Temperature 36.5 C Heart Rate 88 67 Respiratory 16 12 Rate Blood Pressure 136/64 H 117/40 L O2 Saturation 94 94 If not protocol 2 : Oxygen Flow, liters/minute Oxygen O2 Source [With Activity] Room air O2 Source Nasal cannula - EKG (time done) No standard instances EKG releavant findings:: EKG personally interpreted by author of this note. Relevant findings are: Rate: Rate (enter#) (86) Rhythm: Atrial fibrillation [place]: LAD Ischemia: Normal ST segments Other comments: Other comments (artifact V1-V3) - Labs Labs: Laboratory Tests 12/15/23 12/15/23 12/16/23 21:00 21:00 04:48 WBC 13.4 H RBC 3.36 L Hgb 11.2 L Hct 34.8 L MCV 103.6 H MCH 33.3 H MCHC 32.2 RDW 14.3 Plt Count 191 MPV 12.2 H Neut # (Auto) 12.3 H Lymph # (Auto) 0.6 L Dyer # (Auto) 0.4 Eos # (Auto) 0.0 Baso # (Auto) 0.1 Absolute Nucleated RBC 0.02 Nucleated RBC % 0.1 Sodium 139 Potassium 3.7 Chloride 105 Carbon Dioxide 24 Anion Gap 10.0 BUN 25 H Creatinine 0.8 Estimated GFR (MDRD) 68 L Glucose 191 H Calcium 9.8 Total Bilirubin 2.0 H AST 256 H ALT 133 H Alkaline Phosphatase 56 Total Protein 7.0 Albumin 4.3 Globulin 2.7 Albumin/Globulin Ratio 1.6 Triglycerides 48 Cholesterol 135 LDL Cholesterol, Calc 84 VLDL Cholesterol 10 HDL Cholesterol 41 L LDL/HDL Ratio 2.0 Cholesterol/HDL Ratio 3.3 Lipase > 6000 H - Rads (name of study) CT A/P without contrast Relevant Findings:: Prelim report reviewed, See rad report PD Medical Decision Making - ED course Complexity details: reviewed old records, reviewed results, re-evaluated patient, considered differential, d/w patient, d/w family (daughter (in ED at patient's bedside)) ED course: Elevated LFTs (bilirubin 2.0, AST 256, ALT 133). Lipase > 6000. Mild leukocytosis (13.4). CT A/P (without contrast due to patient's stated allergy to IV contrast) interpreted by radiologist as "moderate findings of pancreatic inflammation. No drainable fluid collection.", "distended biliary system. There are hyperdensities at the distal CBD possibly representing calculi." Patient is given 1 L IV saline bolus followed by maintenance rate of 150 cc/h normal saline. She is given aliquots of IV morphine (4mg, 6mg, 4mg) with adequate analgesia (visibly and by patient report). Her nausea improved with IV zofran (4mg x 2 doses). I discussed this case with Dr. Dwyer; upshot of this discussion is patient would be admitted to medicine/hospitalist but MRCP would help determine whether she is appropriate for [facility] or would require transfer to another facility that can undertake ERCP should the MRCP results indicate need for this intervention. Patient is held in the ED overnight ending MRCP when available later during the day and disposition can then be appropriately determined based on results. Care of patient is turned over to oncoming ED physician (Dr. Melendez) at end of my shift. Departure - Departure Clinical Impression: Pancreatitis Qualifiers: Chronicity: acute Pancreatitis type: unspecified pancreatitis type Acute pancreatitis complication: no infection or necrosis Qualified Code(s): K85.90 - Acute pancreatitis without necrosis or infection, unspecified Condition: Stable Forms: PCP List
[2023-12-15] MEDS: ONDANSETRON 4 MG/2 ML VIAL IVP STA ×2 (21:25→22:17)
[2023-12-15 21:27] LABS: ALBUMIN 4.3 g/dL (3.2-5.5); ALBUMIN/GLOBULIN RATIO 1.6 (1.0-2.2); ALKALINE PHOSPHATASE 56 IU/L (42-121); ALT ALANINE AMINOTRANSFERASE 133 IU/L (10-60); AST ASPARTATE AMINOTRANSFERASE 256 IU/L (10-42); BUN - BLOOD UREA NITROGEN 25 mg/dL (6-20); CALCIUM 9.8 mg/dL (8.5-10.3); CARBON DIOXIDE - CO2 24 mmol/L (21-32); CHLORIDE 105 mmol/L (101-111); CREATININE 0.8 mg/dL (0.6-1.3); GFR - MDRD 68 (>89); GLUCOSE 191 mg/dL (74-104); POTASSIUM 3.7 mmol/L (3.5-4.5); SODIUM 139 mmol/L (135-145)
[2023-12-15 21:48] LABS: LIPASE > 6000 U/L (11-82)
[2023-12-15] MEDS: MORPHINE 2 MG/ML CARPUJECT IVP STA ×2 (22:17→22:52)
[2023-12-15] MEDS: SODIUM CHLORIDE 0.9% 1,000 ML IV STA ×2 (22:18→22:56)
[2023-12-15] MEDS ORDERED: iohexoL-300 100 ML VIAL ONE (23:07)
--- NOTE | 2023-12-16 00:21 | CT Report ---
PROCEDURE: Abdomen/Pelvis WO INDICATIONS: pancreatitis TECHNIQUE: A CT scan of the abdomen and pelvis was performed without the use of intravenous contrast. Images we re recorded and evaluated at appropriate window settings. Reformats: coronal and sagittal. For radiat ion dose reduction, the following was used: automated exposure control, adjustment of mA and/or kV ac cording to patient size. COMPARISON: 05/09/2021 FINDINGS: Image quality: Diagnostic Lower chest: Mild nodularity at the lung bases partially seen. No drainable effusions. Trace left eff usion is present. There is a gastric lap band. Liver: Solid organs are not well evaluated without IV contrast. No contour deforming mass Gallbladder and biliary system: Gallbladder is absent. Possible distention of the CBD at 1.2 cm. Hype rdensities are seen at the distal aspect. Pancreas: Moderate surrounding inflammatory changes without ductal dilation Spleen: Nonenlarged Adrenals: No discrete nodules Kidneys: Right upper pole renal cyst. No hydronephrosis. No definite solid lesion on limited CT noncontrast evaluation Vessels and lymph nodes: Atherosclerotic calcifications are present. No abdominal aortic aneurysm. No pathologic lymph nodes by size criteria. Bowel and peritoneum: No small bowel obstruction. Colonic diverticula are seen. No pathologic ascites. Nonspecific central mesenteric fat stranding is seen. Body wall: Tiny fat-containing umbilical hernia Pelvis: Bladder is unremarkable. The prostate is absent. Rim calcified mass adjacent to the right mayur dder representing fat necrosis on prior imaging. Bones: There are degenerative findings. Marked heterogeneity of the marrow attenuation, indeterminate on CT. IMPRESSION: Moderate findings of pancreatic inflammation. No drainable fluid collection. Inflammation extends to the mesenteric Mild nodularity at the lung bases, possibly infectious/inflammatory. Distended biliary system. There are hyperdensities at the distal CBD possibly representing calculi. Limited evaluation of the abdomen/pelvis on noncontrast CT. Other incidental findings above. Reviewed by: Tyshawn Grant MD on 12/16/2023 12:19 AM PDT Approved by: Tyshawn Grant MD on 12/16/2023 12:19 AM PDT Station ID: [id number]
[2023-12-16] MEDS: MORPHINE 2 MG/ML CARPUJECT IVP STA ×3 (01:16→14:01)
[2023-12-16 05:10] LABS: CHOL/HDL RATIO 3.3 (<4.4); CHOLESTEROL 135 mg/dL; HDL CHOLESTEROL 41 mg/dL; LDL CHOLESTEROL,CALCULATED 84 mg/dL; TRIGLYCERIDES 48 mg/dL; VLDL CHOLESTEROL 10 mg/dL
[2023-12-16] MEDS: SODIUM CHLORIDE 0.9% 1,000 ML IV STA ×3 (05:23→17:18)
--- NOTE | 2023-12-16 12:08 | ED Physician Documentation ---
ED Addendum - Addendum Addendum: 12/16/23 12:07 The patient has been doing okay this morning. Medications have been previously ordered for pain and she did request some again after change of shift. Morphine dose was given and she did okay. MRCP is able to be done this morning. She will be going over approximately 11 AM. Result is not yet obtained.
--- NOTE | 2023-12-16 12:51 | MRI Report ---
PROCEDURE: MRCP WO INDICATIONS: pancreatitis CONTRAST: None TECHNIQUE: Coronal ultra fast SE through the abdomen, axial 2-D spoiled GE in- and [id number], and breath-hold T2 FSE with fat saturation through the biliary system and pancreas. Oblique coronal and axial thin- slice ultra fast SE, radial thick-slab ultra fast SE centered on the extrahepatic bile ducts. COMPARISON: CT 12/15/2023 FINDINGS: Image quality: Excellent. Gallbladder: Surgically absent. Biliary tree: Intrahepatic and extrahepatic biliary dilation. Common bile duct measures up to 17 mm. Layering stones within the common bile duct measuring up to 5 mm (series 6, images 21, 22 and 23. Pancreas: Homogeneous T1 hyperintense signal within the pancreas. No pancreatic ductal dilation. [place] pancreatic inflammatory changes are present. Lung bases and heart: Trace pleural effusions. Liver: No solid mass. Spleen: No splenomegaly. Adrenals: No adrenal nodule. Kidneys and ureters: No hydronephrosis. No renal cystic lesion which requires follow up. No solid mas s. Bowel and peritoneum: No bowel distension. No pathologic free fluid. Gastric band surgery. Lymph nodes: No central or retroperitoneal adenopathy. Vessels: No infrarenal aortic aneurysm. Bones: No aggressive osseous abnormality. Other: No significant ventral hernia. IMPRESSION: Choledocholithiasis, measuring up to 5 mm, layering within the distal common bile duct. Intrahepatic and extrahepatic biliary dilation. Acute pancreatitis, likely related. Homogeneous T1 hyperintense signal probably represents interstiti al type. No acute peripancreatic collection. Reviewed by: Fabrizio Delvalle MD on 12/16/2023 12:49 PM PDT Approved by: Fabrizio Delvalle MD on 12/16/2023 12:49 PM PDT Station ID: [id number]
[2023-12-16] MEDS: LACTATED RINGERS 1,000 ML IV STA (13:08)
[2023-12-16 13:27] LABS: BASOPHILS % (AUTO) 0.2 %; HCT - HEMATOCRIT 31.5 % (37.0-47.0); HGB - HEMOGLOBIN 10.3 g/dL (12.0-16.0); LYMPHOCYTES % (AUTO) 4.1 %; MEAN CORPUSCULAR HEMOGLOBIN 34.3 pg (27.0-31.0); MEAN CORPUSCULAR HGB CONC 32.7 g/dL (32.0-36.0); MEAN PLATELET VOLUME 12.6 fL (7.9-10.8); MONOCYTES % (AUTO) 5.6 %; NEUTROPHILS % (AUTO) 89.7 %; PLT - PLATELET COUNT 166 10^3/uL (130-450); RED CELL DISTRIBUTION WIDTH 14.7 % (12.0-15.0); WHITE BLOOD COUNT 20.9 x10^3/uL (4.8-10.8)
[2023-12-16 13:29] LABS: ABNORMAL LYMPHS % (MANUAL) 0 %
[2023-12-16] MEDS: ONDANSETRON 4 MG/2 ML VIAL IVP STA (13:35)
[2023-12-16] MEDS: CEFEPIME 1 GM in SODIUM CHLORIDE 0.9% MINIBAG 100 ML IV STA (13:37)
[2023-12-16 13:52] LABS: ALBUMIN 3.8 g/dL (3.2-5.5); ALBUMIN/GLOBULIN RATIO 1.7 (1.0-2.2); BILIRUBIN,TOTAL 4.4 mg/dL (0.2-1.0); CALCIUM 8.7 mg/dL (8.5-10.3); CREATININE 0.9 mg/dL (0.6-1.3); POTASSIUM 3.9 mmol/L (3.5-4.5)
[2023-12-16 13:54] LABS: BAND NEUTROPHILS % (MANUAL) 14 %; LYMPHOCYTES # (MANUAL) 0.6 10^3/uL (1.5-3.5); LYMPHOCYTES % (MANUAL) 2 %; MONOCYTES # (MANUAL) 0.8 10^3/uL (0.0-1.0); NEUTROPHILS # (MANUAL) 19.4 10^3/uL (1.5-6.6); REACTIVE LYMPHS % (MANUAL) 1 %
[2023-12-16 13:55] LABS: DIFFERENTIAL COMMENT MANUAL DIFFERENTIAL; PLATELET ESTIMATE, MANUAL NORMAL (130-450,000) (NORMAL); PLATELET MORPHOLOGY NORMAL APPEARANCE (NORMAL); RBC MORPHOLOGY (MULTIPLE) NORMAL APPEARANCE (NORMAL)
[2023-12-16] MEDS: METOPROLOL SUCCINATE 25 MG TABLET PO SCH (14:36)
[2023-12-16] MEDS ORDERED: MORPHINE 2 MG/ML CARPUJECT IVP PRN (16:59)
[2023-12-16] MEDS: KETOROLAC 15 MG/ML VIAL IVP SCH (17:16)
--- NOTE | 2023-12-16 17:24 | PHARMACY PROGRESS NOTE ---
- Best Possible Medication History Admit Date and Time: Processed by: Pharmacy (Medication Reconciliation completed by Unit Educator) Medications reviewed in ED?: Yes Medication History completed: Yes Patient Interview: Completed Secondary Source(s): Physician records, Insurance records As the person ultimately responsible for medication therapy, providers are able to order a medication from an existing home medication list in [facility] via the "Reconcile Routine" prior to Confirmation of that medication by faculty support coordinator. Such practice is discouraged except when the physician, in their clinical judgme nt, deems that a medical need exists for a medication without regard to previous use.
[2023-12-16 18:36] VITALS: O2SAT 95
[2023-12-16] MEDS: FUROSEMIDE 20 MG/2 ML VIAL IVP STA (19:00)
[2023-12-16] MEDS: metroNIDAZOLE 500 MG/100 ML 500 MG/100 ML BAG IV SCH (19:18)
[2023-12-16 19:19] LABS: BILIRUBIN,URINE SMALL (NEGATIVE); GLUCOSE, URINE (UA) NEGATIVE (NEGATIVE); KETONES,URINE (UA) NEGATIVE (NEGATIVE); LEUKOCYTE ESTERASE, URINE NEGATIVE (NEGATIVE); NITRITE,URINE POSITIVE (NEGATIVE); OCCULT BLOOD,URINE TRACE-LYSE (NEGATIVE); PH,URINE 5.5 PH (5.0-7.5); PROTEIN,URINE 30 mg/dL (NEGATIVE); UROBILINOGEN,URINE 0.2 (NORMAL) E.U./dL (NORMAL)
[2023-12-16 19:20] LABS: CLARITY,URINE CLOUDY (CLEAR)
[2023-12-16 19:33] LABS: BACTERIA,URINE Many /HPF (None Seen); RBC,URINE 0-5 /HPF (0-5); SQUAMOUS EPITHELIAL CELL,UR NONE SEEN (<= Few)
[2023-12-16] MEDS: CIPROFLOXACIN 400 MG/200 ML 400 MG/200 ML BAG IV SCH (19:34)
[2023-12-16] MEDS: metroNIDAZOLE 250 MG TABLET PO STA (19:57)
[2023-12-16] MEDS: CIPROFLOXACIN 250 MG TABLET PO STA (19:57)
[2023-12-16 20:18] VITALS: BP 126/59
== END 2023-12-16 20:00 | disposition short-term general hospital (02) ==
LOC: EDUNIT# → ED 20:34
DX: K85.90 Acute pancreatitis without necrosis or infection, unspecified (principal); K80.50 Calculus of bile duct without cholangitis or cholecystitis without obstruction; I48.91 Unspecified atrial fibrillation; I10 Essential (primary) hypertension; I25.10 Atherosclerotic heart disease of native coronary artery without angina pectoris; Z95.1 Presence of aortocoronary bypass graft; Z79.01 Long term (current) use of anticoagulants; I25.2 Old myocardial infarction; F41.9 Anxiety disorder, unspecified
CPT/HCPCS: 36415; 51702; 74176; 74181; 80053; 80061; 81001; 83690; 85025; 87077; 87086; 87181; 93005; 96365; 96367; 96375; 96376; 99285; A9270; J7120; 81003; 83721